=== PATIENT | female | born 1990 | race Two or more races ===

== ENCOUNTER → 2020-10-04 15:05 | Outpatient (BNVA) | payer OTHER, SELFPAY | PROVIDERS: PCP Internal Medicine; Visit Provider Obstetrics & Gynecology ==

== ENCOUNTER 2020-10-07 08:24 | Emergency (ER) | payer OTHER, SELFPAY ==
--- NOTE | ~2020-10-07 | XR_ITS ---
EXAMINATION: XR CHEST CLINICAL INFORMATION: Cough COMPARISON: Previous chest x-ray November 2018 TECHNIQUE: Frontal view of the chest was obtained. FINDINGS: The cardiac and mediastinal contours are normal. There is minimal subsegmental atelectasis at the left lung base. The lungs are otherwise clear. There is no pleural effusion or pneumothorax. Bony structures are normal. XR/XR chest 1V IMPRESSION: Subsegmental atelectasis at the left lung base. Otherwise unremarkable exam.
[2020-10-07 08:36] VITALS: BP 189/107; PULSE 106; RESP 18; TEMP 37.7; O2SAT 95; BMI 53.9
[2020-10-07 10:48] LABS: IDNOW Serial# 9DD0AD1C
[2020-10-07 10:49] LABS: COVID-19 Test Positive (Negative)
--- NOTE | 2020-10-07 12:16 | ED.URI ---
HPI - URI/Sore Throat General Chief Complaint: Upper Respiratory Symptoms Stated Complaint: asthma Time Seen by Provider: 10/07/20 09:34 Source: patient Mode of arrival: ambulatory Limitations: no limitations History of Present Illness HPI Narrative: 30-year-old female came in for symptoms of upper respiratory symptoms, been coughing, wheezing with difficulty breathing, patient with history of asthma, patient been having generalized body ache, intermittent subjective fever and chills. Patient had 1st shot of modern COVID vaccine about week ago. Related Data Previous Rx's Medication Instructions Recorded escitalopram oxalate 10 mg tablet 10 mg PO DAILY 90 Days #90 tab 09/18/20 albuterol sulfate [ProAir HFA] 2 puff INHALATION Q6H PRN #8.5 g 10/07/20 azithromycin [Zithromax] 250 mg PO DAILY 5 Days #5 tab 10/07/20 Allergies Allergy/AdvReac Type Severity Reaction Status Date / Time citalopram Allergy Unknown nausea Verified 10/04/20 15:06 ibuprofen [From MOTRIN] Allergy Unknown VOMITING Unverified 10/04/20 15:06 Motrin Allergy Unknown vomiting Unverified 10/04/20 15:06 Review of Systems Review of Systems: All other systems are reviewed and are negative Constitutional: Reports as per HPI and Reports no additional constitutional complaints Eyes: Reports as per HPI and Reports no additional eye complaints Reports system reviewed and no additional complaints, except as documented Cardiovascular: Reports as per HPI and Reports no additional cardiovascular complaints Respiratory: Reports as per HPI and Reports no additional respiratory complaints Gastrointestinal: Reports as per HPI and Reports no additional gastrointestinal complaints Genitourinary: Reports no additional female genitourinary complaints Musculoskeletal: Reports no additional musculoskeletal complaints Skin/Breast: Reports system reviewed and no additional complaints, except as docu Psychiatric: Reports no additional psychiatric complaints Endocrine: Reports no additional endocrine complaints Hematologic/Lymphatic: Reports no additional hematologic/lymphatic complaints Allergic/Immunologic: Reports no additional allergic/immunologic complaints Reports system reviewed and no additional complaints, except as documented and Reports Abnormal speech present [facility] Past Medical History Medical History Asthma History of hysteroscopy PCOS (polycystic ovarian syndrome) Surgical History Corneal transplant status History of appendectomy Social History Social History Alcohol intake: never Smoking Status: Never smoker Advance Directives: No Advance Directives Information Provided: No Gender identity: female Physical Exam Vital Signs: Vital Signs: Last Vital Signs Temp 99.8 F 10/07/20 08:36 Pulse 106 H 10/07/20 08:36 Resp 18 10/07/20 08:36 BP 189/107 H 10/07/20 08:36 Pulse Ox 95 10/07/20 08:36 Body Mass Index 53.9 Vital signs have been reviewed as appeared to be correct. Blood pressure elevated. Heart rate elevated. Respiration rate normal. Temperature normal. Oxygen saturation normal. Appearance: Alert. Oriented X3. No acute distress. Head: Normal external exam. Normocephalic. Atraumatic. No Gonzalez signs noted. No raccoon eyes noted Eyes: PERRLA. EOMI. Conjunctiva and sclera normal. Eyelids normal. ENT: TM's Normal. Pharynx normal. Uvula midline. Moist mucous membranes. No trismus noted. No drooling noted. No muffled voice noted. Neck: Normal inspection. Neck supple. FROM. No adenopathy. Thyroid Normal. No meningeal signs. No neck mass noted. CVS: Normal heart rate and rhythm. Heart sound normal. No murmurs noted. Pulses normal throughout. Respiratory: No respiratory distress. Painless inspiration. Breath sounds normal. No wheezes/rales/rhonchi noted. Chest nontender. No accessory muscle usage noted or decreased air movement noted. Abdomen: Soft and nontender. Bowel sounds normal in all 4 quadrants. No distention noted. No organomegaly noted. No visible injury noted. Back: No CVA tenderness. Full range of motion noted. Skin: Skin warm and dry. Normal skin color. Normal skin turgor. No rashes/lesions/lacerations noted. Extremities: No lower extremity edema. Extremities exhibit normal range of motion. Extremities nontender. Neuro: Oriented X 3. No motor deficit. No sensory deficit. Reflexes normal. Course Course Course Narrative: Assessment and plan. Asthmatic came in with COVID positive positive symptoms, patient is not hypoxic, chest x-ray is not showing pneumonia, will discharge the patient with a course of Z-Saw /albuterol, will hold on prednisone for now. MDM - URI/Sore Throat Lab Data Attestation: I reviewed the patient's lab results. Labs: Lab Results 10/07/20 Range/Units 10:20 COVID-19 (KAREN) Positive A (Negative) COVID-19 Clin Com See Note Imaging Data Chest x-ray: Radiologist's impression: Subsegmental atelectasis at the left lung base. Otherwise unremarkable exam. Discharge Plan Discharge Clinical Impression: Pneumonia due to COVID-19 virus, Bronchitis Patient Disposition: Home, Self-Care Instructions: COVID-19 (Coronavirus Disease 2019) (ED) Prescriptions: New azithromycin [Zithromax] 250 mg tablet 250 mg PO DAILY 5 Days Qty: 5 RF: 0 albuterol sulfate [ProAir HFA] 90 mcg/actuation HFA aerosol inhaler 2 puff inhalation Q6H PRN (Reason: shortness of breath or wheezing) Qty: 8.5 RF: 0 No Action escitalopram oxalate 10 mg tablet 10 mg PO DAILY 90 Days Qty: 90 RF: 1 Referrals: Lucille Marrufo MD [Primary Care Provider] - 2 days
[2020-10-07 12:29] VITALS: BP 145/76; PULSE 104; RESP 20; TEMP 36.8; O2SAT 97
== END 2020-10-07 12:54 | disposition home or self-care (01) ==
PROVIDERS: Emergency Provider Emergency Medicine; PCP Internal Medicine
DX: U07.1 COVID-19 (principal); J12.82 Pneumonia due to coronavirus disease 2019; J40 Bronchitis, not specified as acute or chronic
CPT/HCPCS: 36415; 71045; 87635; 99283

== ENCOUNTER 2020-10-15 15:16 | Outpatient (REF) | payer OTHER, SELFPAY ==
[2020-10-16 01:35] LABS: CT PCR NOT DETECTED (Not Detect.); NG PCR NOT DETECTED (Not Detect.)
== END 2020-10-15 15:17 | disposition home or self-care (01) ==
LOC: HO.LAB 15:16
PROVIDERS: PCP Internal Medicine; Visit Provider Obstetrics & Gynecology
DX: Z30.432 Encounter for removal of intrauterine contraceptive device (principal); R10.2 Pelvic and perineal pain; E28.2 Polycystic ovarian syndrome; Z88.8 Allergy status to other drugs, medicaments and biological substances
CPT/HCPCS: 58301; 81003; 81025; 87491; 87591; 99212

== ENCOUNTER 2020-10-23 14:42 | Outpatient (REF) | payer OTHER, SELFPAY ==
--- NOTE | ~2020-10-23 | US_ITS ---
EXAMINATION: US PELVIS COMPLETE CLINICAL INFORMATION: Pelvic and perineal pain. COMPARISON: Ultrasound pelvis 03/31/2019. TECHNIQUE: Transabdominal and transvaginal imaging of pelvis is performed. FINDINGS: The uterus is anteverted and heterogenous measuring 8.9 cm in length, 3.1 cm in AP and 3.3 cm in transverse dimension. The endometrial thickness is 0.8 cm. No focal lesion seen. Both ovaries are enlarged. The right ovary measures 8.5 x 6.3 x 7.0 cm and volume 1 96 mL. There is a cyst which measures 6.8 x 5.9 x 6.8 cm. Several small anechoic cysts are seen in addition. The findings are suggestive of polycystic disease Previously right ovary measured 4.3 x 3.4 x 3.3 cm and volume 25.3 mL. The left ovary measures 5.1 x 2.8 x 3.5 cm and volume 26.2 mL. There are small anechoic cysts in the string of pearls formation. Findings are suggestive of polycystic disease. There is no free fluid in the cul-de-sac. US/US transvaginal IMPRESSION: Bilateral enlarged ovaries. Multiple cysts likely from polycystic ovarian syndrome. The largest cyst in the right ovary measures 6.8 x 5.9 x 6.8 cm. Slightly heterogenous uterus but otherwise unremarkable.
--- NOTE | ~2020-10-23 | US_ITS ---
EXAMINATION: US PELVIS COMPLETE CLINICAL INFORMATION: Pelvic and perineal pain. COMPARISON: Ultrasound pelvis 03/31/2019. TECHNIQUE: Transabdominal and transvaginal imaging of pelvis is performed. FINDINGS: The uterus is anteverted and heterogenous measuring 8.9 cm in length, 3.1 cm in AP and 3.3 cm in transverse dimension. The endometrial thickness is 0.8 cm. No focal lesion seen. Both ovaries are enlarged. The right ovary measures 8.5 x 6.3 x 7.0 cm and volume 1 96 mL. There is a cyst which measures 6.8 x 5.9 x 6.8 cm. Several small anechoic cysts are seen in addition. The findings are suggestive of polycystic disease Previously right ovary measured 4.3 x 3.4 x 3.3 cm and volume 25.3 mL. The left ovary measures 5.1 x 2.8 x 3.5 cm and volume 26.2 mL. There are small anechoic cysts in the string of pearls formation. Findings are suggestive of polycystic disease. There is no free fluid in the cul-de-sac. US/US pelvic complete IMPRESSION: Bilateral enlarged ovaries. Multiple cysts likely from polycystic ovarian syndrome. The largest cyst in the right ovary measures 6.8 x 5.9 x 6.8 cm. Slightly heterogenous uterus but otherwise unremarkable.
== END 2020-10-23 14:43 | disposition home or self-care (01) ==
LOC: HO.US 14:42
PROVIDERS: Visit Provider Obstetrics & Gynecology
DX: R10.2 Pelvic and perineal pain (principal)
CPT/HCPCS: 76830; 76856

== ENCOUNTER → 2020-11-02 11:26 | Outpatient (BNVA) | payer OTHER, SELFPAY | PROVIDERS: PCP Internal Medicine; Visit Provider Obstetrics & Gynecology ==

== ENCOUNTER → 2021-11-07 15:26 | Outpatient (BNVA) | payer OTHER, SELFPAY | PROVIDERS: PCP Internal Medicine; Visit Provider Obstetrics & Gynecology | DX: N91.5 Oligomenorrhea, unspecified (principal) | CPT/HCPCS: 99212 ==

== ENCOUNTER 2021-12-06 09:31 | Outpatient (REF) | payer OTHER, SELFPAY ==
[2021-12-06 09:53] LABS: MANUAL DIFF FLAG NO
[2021-12-06 10:08] LABS: Basophils Percent Auto 0.4 % (0-2); Eosinophils Absolute Auto 0.9 X10*3/uL (0.0-0.4); Eosinophils Percent Auto 10.4 % (0-4); Hematocrit 47.1 % (37.0-47.0); Imm Gran Abs Auto 0.02 X10*3/uL (0.00-0.03); Imm Gran Pct Auto 0.2 % (0.0-0.4); Lymphocytes Absolute Auto 3.3 X10*3/uL (1.2-4.9); Lymphocytes Percent Auto 36.5 % (20-40); Mean Corpuscular Hemoglobin 30.1 pg (27.0-33.0); Mean Corpuscular Volume 88.5 fL (80.0-98.0); Mean Platelet Volume 10.2 fL (9.4-12.3); Monocytes Absolute Auto 0.7 X10*3/uL (0.1-1.2); Monocytes Percent Auto 7.3 % (2-11); Neutrophils Absolute Auto 4.1 x10*3/uL (2.0-8.3); Neutrophils Percent Auto 45.2 % (45-73); Platelet Count 267 X10*3/uL (160-400); Red Blood Count 5.32 X10*6/uL (4.20-5.50); Red Cell Distribution Width 12.8 % (11.0-16.0)
[2021-12-06 10:56] LABS: Alanine Aminotransferase 44 U/L (0-31); Albumin Level 3.8 g/dL (3.5-5.0); Alkaline Phosphatase 69 U/L (39-117); Anion Gap 12 (12-20); Aspartate Amino Transferase 31 U/L (5-31); Bilirubin Total 0.6 mg/dL (0.0-1.0); Blood Urea Nitrogen 8 mg/dL (9-16); Calcium 8.9 mg/dL (8.4-10.2); Carbon Dioxide 24 mmol/L (22-29); Chloride 106 mmol/L (96-108); Cholesterol 124 mg/dL; Estimated Glomerular Filt Rate > 60; Glucose Fasting 110 mg/dL (60-99); HDL Cholesterol 23 mg/dL; LDL Cholesterol Calculated 79 mg/dl; Potassium 3.9 mmol/L (3.3-5.1); Sodium 138 mmol/L (135-145); Total Protein 7.1 g/dL (6.5-8.0); Triglycerides 110 mg/dL
[2021-12-06 11:07] LABS: TSH reflex Free T4 1.92 uIU/mL (0.32-4.0)
== END 2021-12-06 09:32 | disposition home or self-care (01) ==
LOC: HO.LAB 09:31
PROVIDERS: PCP Internal Medicine; Visit Provider Nurse Practitioner Family
DX: E78.00 Pure hypercholesterolemia, unspecified (principal); E66.9 Obesity, unspecified; I10 Essential (primary) hypertension
CPT/HCPCS: 36415; 80053; 80061; 84443; 85025

== ENCOUNTER 2023-01-14 13:46 | Outpatient (AMB) | payer OTHER, SELFPAY ==
[2023-01-14 13:47] VITALS: BP 136/88; PULSE 107; O2SAT 97; BMI 57.4
--- NOTE | 2023-01-14 13:47 | A.OFFPC_ITS ---
Vital Signs 01/14/23 13:47 Height 5 ft 5 in Weight 345 lb BMI 57.4 BP 136/88 Blood Pressure Location Lt brachial Position Sitting Pulse 107 H Pulse Source Pulse Oximeter Temp Source Skin Pulse Oximetry (%) 97 Oxygen Delivery Method Room Air Intake Visit Reasons: Physical exam Intake Note: Patient is here today for a physical. 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 Allergies citalopram Allergy (Intermediate, Verified 01/14/23 13:59) nausea ibuprofen [From MOTRIN] Allergy (Intermediate, Verified 01/14/23 13:59) VOMITING Medication List - Last Reconciled 01/14/23 by BRONSON Brenner fluticasone propionate 44 mcg/actuation (Flovent HFA) 1 puff inhalation BID 30 days medroxyprogesterone (Provera) 10 mg PO DAILY 10 days nebulizers (AeroEclipse II Nebulizer) As directed ProAir HFA 90 mcg/actuation (albuterol sulfate) 2 puffs inhalation Q6H PRN 30 days NS Tobacco use date assessed: 01/14/23 Dental Screening Dental Screen Date: 01/14/23 Did you have a dental visit in the last 12 months?: No Did you have a dental problem in the last 6 months where you did not have access to dental care?: No Was dental information given to patient?: Patient has dentist HPI Physical exam HPI Details Patient is a 33-year-old female presents today for physical exam. Patient of Dr. Albert. Medical history significant for obesity, asthma, impaired fasting glucose, PCOS, hypertension. Patient reports normal Pap smear 2 years ago, she has an upcoming appointment for annual exam with Dr. Jaimes on 02/2023. Asthma is stable with current inhalers, last time she used albuterol inhaler 2 months ago. She reports eye exam today. Patient reports she never took lisinopril for blood pressure, patient reports taking [id number] supplements for blood pressure for the past 2 weeks-she does not remember the name. Denies chest pain or shortness of breath. Reports intermittent headache with sensitivity to light reports feeling better in a dark room, reports Excedrin helps, reports when she had headache her blood pressure was normal. Interested in weight management referral, although not interested in a surgery. [facility] Medical History (Updated 01/14/23 @ 14:16 by BRONSON Brenner) Asthma Keratoconus of both eyes Obese PCOS (polycystic ovarian syndrome) Pneumonia due to COVID-19 virus Surgical History Corneal transplant status History of appendectomy History of hysteroscopy Hx laparoscopic cholecystectomy Family History Mother Hypertension Father Hypertension Social History Housing: Apartment Alcohol intake: never Patient Tobacco Use Status: Current someday Tobacco user Tobacco use type: Cigarette Cigarettes Per Day: 3 e-Cigarette/Vaping Use: Never Used Second Hand Smoke Exposure: No service: No Current occupational status: unemployed Gender identity: Female Cognitive needs: No Hearing needs: No Vision needs: Yes Female Reproductive History Menstrual Age of Menarche: 8 Questionnaire PHQ-9 Over the last 2 weeks, how often have you been bothered by any of the following problems? 1. Little interest or pleasure in doing things: not at all 2. Feeling down, depressed, or hopeless: not at all 3. Trouble falling or staying asleep, or sleeping too much: not at all 4. Feeling tired or having little energy: not at all 5. Poor appetite or overeating: not at all 6. Feeling bad about yourself - or that you are a failure or have let yourself or your family down: not at all 7. Trouble concentrating on things, such as reading the newspaper or watching television: not at all 8. Moving or speaking so slowly that other people could have noticed. Or the opposite - being so fidgety or restless that you have been moving around a lot more than usual: not at all 9. Thoughts that you would be better off or of hurting yourself in some way: not at all Total score: 0 Depression Screening Interpretation: Negative 46615 - PHQ-9 Billing: Yes Source: Developed by Drs. Carlos Murillo, Karime Covington, Sergio Rosales and colleagues, with an educational joao from [employer]. Thrive Questionnaire Date Thrive assessed: 01/14/23 I am a: Patient What is your living situation today?: I have a steady place to live Within the past 12 months, did the food you bought not last and you didn't have the money to get more?: Never true Within the past 12 months, did you worry whether your food would run out before you got money to buy more?: Never true Do you have trouble paying for medicines?: No Do you have trouble getting transportation to medical appointments?: No Do you have trouble paying your heating and electricity bill?: No Do you have trouble taking care of your child, family member or friend?: No Do you have trouble with day-to-day activities such as bathing, preparing meals, shopping, managing finances, etc.?: No Are you currently unemployed and looking for a job?: No Are you interested in more education?: No Currently or been in a relationship where the following occur: no concerns reported AUDIT C Alcohol Use Questionnaire (AUDIT-C) 1. How often do you have a drink containing alcohol?: Never Total Score: 0 Score Reviewed/Action Taken: No THAO-7 AMB Questionnaire THAO-7 Date THAO - 7 assessed: 01/14/23 Feeling nervous, anxious, or on edge: 0 = Not at all Not being able to stop or control worryin = Not at all Worrying too much about different things: 0 = Not at all Trouble relaxin = Not at all Being so restless that it is hard to sit still: 0 = Not at all Becoming easily annoyed or irritable: 0 = Not at all Feeling afraid as if something awful might happen: 0 = Not at all Total THAO-7 score (0-4 normal; 5-9 mild; 10-14 moderate; 15-21 severe): 0 Source: Developed by Drs. Carlos Murillo, Karime Covington, Sergio Rosales and colleagues, with an educational joao from [employer]. THAO-7 Assessment Billing THAO-7 Assessment Tool: THAO-7 Assessment 08612 Review of Systems Const Denies body aches, Denies chills, Denies fever(s) and Reports headache(s) (Intermittent) Eyes Denies change in vision ENT Denies dizziness, Denies otalgia, Reports headache(s) (Intermittent), Denies nasal discharge, Denies sinus pain and Denies sore throat Card Denies chest pain, Denies edema, Denies lightheadedness and Denies dyspnea Resp Denies cough, Denies dyspnea and Denies wheezing GI Denies abdominal pain, Denies constipation, Denies diarrhea, Denies nausea and Denies vomiting Denies dysuria Musc Denies myalgias Skin/Breast Denies rash Neuro Denies dizziness and Reports headache(s) (Intermittent) Aller/Immun Denies wheezing Physical exam (Primary Care) Vital Signs: Last Vital Signs Pulse 107 H 01/14/23 13:47 BP 136/88 01/14/23 13:47 Pulse Ox 97 01/14/23 13:47 Oxygen Delivery Method Room Air 01/14/23 13:47 BMI result Body Mass Index 57.4 Tobacco/Smoking Status: Tobacco use Status Tobacco use date assessed 01/14/23 01/14/23 13:48 Patient Tobacco Use Status Current someday Tobacco 01/14/23 13:48 Tobacco use type Cigarette 01/14/23 13:48 e-Cigarette/Vaping Use Never Used 01/14/23 13:48 PHQ-9: PHQ-9 Score PHQ-9: Total score 0 01/14/23 13:48 Depression Screening Interpretation: Negative Thrive Assessment: Date of Thrive Assessment Date Thrive assessed 01/14/23 01/14/23 13:48 Currently or been in a relationship where the following occur: no concerns reported Const General: cooperative and no acute distress Orientation/consciousness: patient oriented x3 HENMT Head: Yes normocephalic and Yes atraumatic Ears: TM's normal bilaterally Face and sinus: Yes sinuses nontender Mouth: oropharynx normal and moist mucous membranes Throat: Yes posterior oropharynx normal Eyes General: appearance normal, both eyes and all related structures Pupils: Equal, round and reactive pupils present EOM: EOMs intact bilaterally Neck Neck: Yes normal visual inspection, Yes full ROM and Yes no lymphadenopathy Thyroid: Thyroid normal Resp Effort & Inspection: normal respiratory effort and able to speak in complete sentences Auscultation: clear to auscultation bilaterally, no crackles, no rales, no rhonchi and no wheezes Cardio Rate: regular rate Rhythm: regular rhythm Heart sounds: S1 normal heart sound present, S2 normal heart sound present and no murmurs GI Palpation (GI): Soft to palpation, not firm, nontender, no guarding, not rigid and no hepatosplenomegaly Auscultation: normal bowel sounds General: No CVA tenderness Back/Spine/Pelvis Back: No CVA tenderness Skin General skin exam: no rashes or lesions noted Neuro General: patient oriented x3 Cranial nerves: Yes Equal, round and reactive pupils present Gait exam (Neuro): Normal gait present Extrem General: Yes full ROM and No edema Assessment and Plan Assessment & Plan (1) Essential hypertension: Code(s): I10 - Essential (primary) hypertension Plan: Goal BP equal or less than 140/90, blood pressure today 136/88 Patient was encouraged to monitor her blood pressures periodically at home, currently not on treatment reports that she started taking [id number] blood pressure supplement-does not remember the name Low-sodium diet and weight loss (2) Impaired fasting glucose: Code(s): R73.01 - Impaired fasting glucose Plan: Will check fasting glucose (3) BMI 50.0-59.9, adult: Code(s): Z68.43 - Body mass index [BMI] 50.0-59.9, adult Plan: Healthy food choices and exercise as tolerated Weight management referral (4) Asthma: Code(s): J45.909 - Unspecified asthma, uncomplicated Plan: Stable Continue current treatment (5) Encounter for physical examination: Comment: Patient follows up with Dr. Jaimes Code(s): Z00.00 - Encounter for general adult medical examination without abnormal findings Plan: Repeat in 1 year Plan Follow-up with PCP in 6 months or sooner as needed Orders: Orders Vitamin B12 and Folate Today J45.909 - Unspecified asthma, uncomplicated Comprehensive [place]. Panel Fast Today J45.909 - Unspecified asthma, uncomplicated Lipid Panel Today J45.909 - Unspecified asthma, uncomplicated TSH reflex Free T4 Today J45.909 - Unspecified asthma, uncomplicated Vitamin D 25-OH Total Today J45.909 - Unspecified asthma, uncomplicated Complete Blood Count Auto Diff Today J45.909 - Unspecified asthma, uncomplicated Referrals Medical Weight Management Referral Z68.43 - Body mass index [BMI] 50.0-59.9, adult Medications: Refilled fluticasone propionate 44 mcg/actuation (Flovent HFA) administer with spacer 1 puff inhalation BID 30 days 10.6 grams 1RF J45.909 - Unspecified asthma, uncomplicated ProAir HFA 90 mcg/actuation (albuterol sulfate) 2 puffs inhalation Q6H 30 days PRN 8.5 grams 3RF shortness of breath or wheezing NS J45.909 - Unspecified asthma, uncomplicated Coding Level of Care Code Est Pt Prev Care [id number]) Diagnoses Essential hypertension I10 Impaired fasting glucose R73.01 BMI 50.0-59.9, adult Z68.43 Asthma J45.909 Encounter for physical examination Z00.00 Additional Codes THAO-7 Assessment Billing - THAO-7 Assessment Tool: THAO-7 Assessment 61101 ([id number])
== END 2023-01-14 14:10 | disposition home or self-care (01) ==
PROVIDERS: PCP Internal Medicine; Visit Provider Nurse Practitioner Family
DX: Z00.00 Encounter for general adult medical examination without abnormal findings (principal); Z68.43 Body mass index [BMI] 50.0-59.9, adult; E66.01 Morbid (severe) obesity due to excess calories; I10 Essential (primary) hypertension; J45.909 Unspecified asthma, uncomplicated; R73.01 Impaired fasting glucose
CPT/HCPCS: 99395

== ENCOUNTER 2023-01-20 10:15 | Outpatient (REF) | payer OTHER, SELFPAY ==
[2023-01-20 10:32] LABS: MANUAL DIFF FLAG NO
[2023-01-20 10:52] LABS: Basophils Absolute Auto 0.1 X10*3/uL (0.0-0.2); Basophils Percent Auto 0.6 % (0-2); Eosinophils Absolute Auto 0.6 X10*3/uL (0.0-0.4); Eosinophils Percent Auto 6.9 % (0-4); Hematocrit 40.7 % (37.0-47.0); Hemoglobin 13.6 g/dl (12.0-16.0); Imm Gran Abs Auto 0.01 X10*3/uL (0.00-0.03); Imm Gran Pct Auto 0.1 % (0.0-0.4); Lymphocytes Absolute Auto 4.2 X10*3/uL (1.2-4.9); Lymphocytes Percent Auto 46.5 % (20-40); Mean Corpuscular HGB Conc 33.4 g/dl (31.0-35.0); Mean Corpuscular Hemoglobin 28.9 pg (27.0-33.0); Mean Corpuscular Volume 86.6 fL (80.0-98.0); Mean Platelet Volume 10.6 fL (9.4-12.3); Monocytes Absolute Auto 0.6 X10*3/uL (0.1-1.2); Monocytes Percent Auto 6.7 % (2-11); Neutrophils Absolute Auto 3.5 x10*3/uL (2.0-8.3); Neutrophils Percent Auto 39.2 % (45-73); Platelet Count 335 X10*3/uL (160-400); Red Cell Distribution Width 13.9 % (11.0-16.0); White Blood Count 8.9 X10*3/uL (4.8-10.8)
[2023-01-20 11:21] LABS: Alanine Aminotransferase 52 U/L (0-31); Albumin Level 3.8 g/dL (3.5-5.0); Alkaline Phosphatase 75 U/L (39-117); Anion Gap 10 (12-20); Aspartate Amino Transferase 41 U/L (5-31); Bilirubin Total 0.5 mg/dL (0.0-1.0); Blood Urea Nitrogen 12 mg/dL (9-16); Calcium 9.2 mg/dL (8.4-10.2); Carbon Dioxide 28 mmol/L (22-29); Chloride 107 mmol/L (96-108); Cholesterol 129 mg/dL; Estimated Glomerular Filt Rate > 60; Glucose Fasting 102 mg/dL (60-99); HDL Cholesterol 25 mg/dL; LDL Cholesterol Calculated 81 mg/dl; Potassium 3.5 mmol/L (3.3-5.1); Sodium 141 mmol/L (135-145); Total Protein 7.5 g/dL (6.5-8.0); Triglycerides 115 mg/dL
[2023-01-20 11:38] LABS: TSH reflex Free T4 4.57 uIU/mL (0.32-4.0)
[2023-01-20 11:52] LABS: Folate 13.7 ng/mL (> or = 4.0); Vitamin B12 350 pg/mL (200-900)
[2023-01-20 13:09] LABS: Free T4 (Free Thyroxine) 1.15 ng/dL (0.71-1.85)
== END 2023-01-20 10:16 | disposition home or self-care (01) ==
LOC: HO.LAB 10:15
PROVIDERS: PCP Internal Medicine; Visit Provider Nurse Practitioner Family
DX: J45.909 Unspecified asthma, uncomplicated (principal)
CPT/HCPCS: 36415; 80053; 80061; 82306; 82607; 82746; 84439; 84443; 85025

== ENCOUNTER 2023-02-17 10:58 | Outpatient (AMB) | payer OTHER, SELFPAY ==
--- NOTE | 2023-02-17 11:01 | MHC.OFFVIS ---
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 Complaining of LLQ pain started 1-2 months ago. It's intermittent in nature lasting few seconds and occurs 3x/day. it is not associated with any constipation, dysuria, no frequency or incontinence, no n/v, no feverishness Last co testing was negative in 03/25 [facility] Medical History Obese Keratoconus of both eyes Pneumonia due to COVID-19 virus Asthma PCOS (polycystic ovarian syndrome) Surgical History Hx laparoscopic cholecystectomy History of hysteroscopy History of appendectomy Corneal transplant status Family History Mother Hypertension Father Hypertension Social History Housing: Apartment Alcohol intake: never Patient Tobacco Use Status: Current someday Tobacco user Tobacco use type: Cigarette Cigarettes Per Day: 3 e-Cigarette/Vaping Use: Never Used Second Hand Smoke Exposure: No service: No Current occupational status: unemployed Gender identity: Female Cognitive needs: No Hearing needs: No Vision needs: Yes Female Reproductive History Menstrual Age of Menarche: 8 Duration of menses: 3-5 days Date of last menstrual period: 12/22/22 control method: none Total pregnancies: 0 Date of last pap smear: 03/18/18 (negative) Review of Systems Const All systems reviewed & are unremarkable except as noted in HPI and below Card Reports as per HPI Resp Reports as per HPI GI Reports as per HPI and Reports no additional complaints Reports as per HPI Physical Exam Vital Signs: Last Vital Signs BP 150/94 H 02/17/23 11:02 BMI result Body Mass Index 56.4 Const General: cooperative, healthy appearing and comfortable Chest Chest palpation & inspection: normal inspection of the chest and normal palpation of entire chest wall Breast/axilla inspection: normal inspection of the breasts and normal inspection of the axillae Breast/axilla palpation: normal palpation of the breasts, normal palpation of the axillae and no axillary lymphadenopathy Resp Effort & Inspection: normal respiratory effort Auscultation: clear to auscultation bilaterally Percussion: percussion normal Cardio Palpation: normal PMI Rate: regular rate Rhythm: regular rhythm Heart sounds: no murmurs and no rubs Peripheral pulses: Peripheral pulses 2+ throughout GI Inspection: Yes normal to inspection Palpation (GI): Soft to palpation, nontender, no guarding, not rigid and No hepatosplenomegaly present Percussion: Yes normal to percussion Auscultation: normal bowel sounds Rectal Exam - Female: deferred General: Yes bladder normal to palpation External Female Exam: No lesion Speculum Exam - Vagina: normal appearance of the vagina, normal palpation, normal vaginal discharge and not erythematous Speculum Exam - Cervix: normal appearance of the cervix and normal palpation Bimanual exam- vagina & uterus: normal bimanual exam, normal palpation, uterine size normal, bladder normal to palpation, consistency normal and normal palpation Bimanual Exam- Adnexa, other: normal adnexae, no masses and no tenderness Assessment & Plan Assessment & Plan (1) Well woman exam: Code(s): Z01.419 - Encounter for gynecological examination (general) (routine) without abnormal findings Plan: Cotesting done. Counseled the patient about the recommended dietary allowance of 1000 mg of Calcium & 600 IU of vitamin D. The patient was instructed to perform monthly self-breast exams and to schedule an annual exam in a year; All questions answered and the patient verbalized understanding. Instructed the patient to schedule annual exam in a year (2) Pelvic pain: Code(s): R10.2 - Pelvic and perineal pain Plan: Urine dip and test done in the office were both negative. GC and chlamydia taken and pelvic ultrasound ordered. Discussed with the patient the differential diagnosis of pelvic pain including but not limited to adnexal, uterine masses, pelvic infections (PID), GI the (Irritable bowel syndrome, diverticulitis, others), musculoskeletal, myofascial pain abdominal wall , adhesions, endometriosis, psychological and others causes. Will check results and treat accordingly. All questions answered, the patient verbalized understanding. Instructed the patient to schedule follow-up appointment in 2 weeks Orders: Orders US pelvic and transvaginal Today R10.2 - Pelvic and perineal pain Pap Smear Today Z01.419 - Encounter for gynecological examination (general) (routine) without abnormal findings CT NG by PCR Today Z01.419 - Encounter for gynecological examination (general) (routine) without abnormal findings Coding Level of Care Code New Pt Prev Care 18-39yr([id number] Diagnoses Well woman exam Z01.419 Pelvic pain R10.2
[2023-02-17 11:02] VITALS: BP 150/94; BMI 56.4
== END 2023-02-17 11:52 | disposition home or self-care (01) ==
PROVIDERS: PCP Internal Medicine; Visit Provider Obstetrics & Gynecology
DX: Z01.419 Encounter for gynecological examination (general) (routine) without abnormal findings (principal); R10.2 Pelvic and perineal pain; Z32.02 Encounter for pregnancy test, result negative
CPT/HCPCS: 99385; 99395

== ENCOUNTER 2023-02-17 10:58 | Outpatient (REF) | payer OTHER, SELFPAY ==
[2023-02-18 07:13] LABS: CT PCR NOT DETECTED (Not Detect.); NG PCR NOT DETECTED (Not Detect.)
[2023-02-21 03:34] LABS: HPV mRNA E6/E7 rflx Not Detected (Not Detected)
== END 2023-02-17 10:59 | disposition home or self-care (01) ==
LOC: HO.LNP 10:58
PROVIDERS: PCP Internal Medicine; Visit Provider Obstetrics & Gynecology
DX: Z01.419 Encounter for gynecological examination (general) (routine) without abnormal findings (principal); R10.2 Pelvic and perineal pain
CPT/HCPCS: 0353U; 81025; 87624; 88142

== ENCOUNTER 2023-02-27 14:55 | Outpatient (REF) | payer OTHER, SELFPAY ==
--- NOTE | ~2023-02-27 | US_ITS ---
EXAMINATION: ULTRASOUND PELVIC, COMPLETE CLINICAL INFORMATION: Pelvic and perineal pain. COMPARISON: Pelvic ultrasound 10/23/2020. TECHNIQUE: Pelvic ultrasound was performed using transvaginal and transabdominal technique without spectral doppler. FINDINGS: The uterus is of normal size and echogenicity measuring 9.6 x 2.8 x 3.6 cm. The uterus appears normal. A regular homogeneous endometrium is identified measuring 0.5 cm in thickness. The right ovary measures 5.0 x 4.1 x 5.1 cm, volume 55 mL. Right ovary is only visible transabdominally. Cannot assess follicle count. The left ovary measures 6.2 x 3.1 x 3.6 cm, volume 36 mL. Estimated 12-14 antral follicles. There is no pelvic free fluid. US/US pelvic and transvaginal IMPRESSION: Enlarged ovaries with increased number of antral follicles in the left ovary. This is consistent with polycystic ovarian morphology. Correlate clinically.
== END 2023-02-27 14:56 | disposition home or self-care (01) ==
LOC: HO.US 14:55
PROVIDERS: PCP Internal Medicine; Visit Provider Obstetrics & Gynecology
DX: R10.2 Pelvic and perineal pain (principal)
CPT/HCPCS: 76830; 76856

== ENCOUNTER 2023-04-22 09:09 | Outpatient (REF) | payer OTHER, SELFPAY ==
[2023-04-22 15:28] LABS: Thyroid Stimulating Hormone 1.19 uIU/mL (0.32-4.0)
[2023-04-22 15:30] LABS: TSH reflex Free T4 1.34 uIU/mL (0.32-4.0); Vitamin D 25-OH Total 32.4 ng/mL (>30)
[2023-04-24 18:48] LABS: Prolactin 6.1 ng/mL
[2023-04-28 11:49] LABS: Testosterone, Free 40.3 pg/mL (0.1-6.4); Testosterone, Total 288 ng/dL (2-45)
== END 2023-04-22 09:10 | disposition home or self-care (01) ==
LOC: HO.LAB 09:09
PROVIDERS: Nurse Practitioner Family; PCP Internal Medicine; Visit Provider Obstetrics & Gynecology
DX: L68.0 Hirsutism (principal); N92.6 Irregular menstruation, unspecified; R10.2 Pelvic and perineal pain; E28.2 Polycystic ovarian syndrome; R79.89 Other specified abnormal findings of blood chemistry
CPT/HCPCS: 36415; 82306; 83498; 84146; 84402; 84403; 84443

== ENCOUNTER 2023-04-22 09:09 | Outpatient (AMB) | payer OTHER, SELFPAY ==
--- NOTE | 2023-04-22 09:09 | MHC.OFFVIS ---
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 Ultrasound showed the following: The uterus is of normal size and echogenicity measuring 9.6 x 2.8 x 3.6 cm. The uterus appears normal. A regular homogeneous endometrium is identified measuring 0.5 cm in thickness. The right ovary measures 5.0 x 4.1 x 5.1 cm, volume 55 mL. Right ovary is only visible transabdominally. Cannot assess follicle count. The left ovary measures 6.2 x 3.1 x 3.6 cm, volume 36 mL. Estimated 12-14 antral follicles. There is no pelvic free fluid. The Patient was seen few years ago for oligomenorrhea and was started on cyclic Provera day 15-24 . The patient is complaining of hair growth PFSH Medical History Obese Keratoconus of both eyes Pneumonia due to COVID-19 virus Asthma PCOS (polycystic ovarian syndrome) Surgical History Hx laparoscopic cholecystectomy History of hysteroscopy History of appendectomy Corneal transplant status Family History Mother Hypertension Father Hypertension Social History Housing: Apartment Alcohol intake: never Patient Tobacco Use Status: Current someday Tobacco user Tobacco use type: Cigarette Cigarettes Per Day: 3 e-Cigarette/Vaping Use: Never Used Second Hand Smoke Exposure: No service: No Current occupational status: unemployed Gender identity: Female Cognitive needs: No Hearing needs: No Vision needs: Yes Female Reproductive History Menstrual Age of Menarche: 8 Review of Systems Const All systems reviewed & are unremarkable except as noted in HPI and below Reports as per HPI and Reports no additional complaints GI Reports no additional complaints Reports no additional complaints Assessment & Plan Assessment & Plan (1) Pelvic pain: Code(s): R10.2 - Pelvic and perineal pain Plan: Discussed with the patient the results the ultrasound showing bilateral PCOS features of bilateral ovaries. Instructions given the patient to call in case of persistent or worsening of her pelvic pain. (2) PCOS (polycystic ovarian syndrome): Comment: Hirsutism/oligomenorrhea rule out PCOS Code(s): E28.2 - Polycystic ovarian syndrome Plan: Will order testosterone total and free, TSH, prolactin, 17 hydroxyprogesterone and urine 24 hour cortisol. Instructions given the patient to schedule 2 week follow-up appointment. All questions answered, the patient verbalized understanding. I spent a total of 20 minutes reviewing the chart, talking to the patient via video and documenting in the medical record. Orders: Orders Testosterone, Free/Total Today L68.0 - Hirsutism, N92.6 - Irregular menstruation, unspecified 17 Hydroxyprogesterone Today L68.0 - Hirsutism, N92.6 - Irregular menstruation, unspecified Cortisol, Free 24Hr Urine Today L68.0 - Hirsutism, N92.6 - Irregular menstruation, unspecified Thyroid Stimulating Hormone Today L68.0 - Hirsutism, N92.6 - Irregular menstruation, unspecified Prolactin Today L68.0 - Hirsutism, N92.6 - Irregular menstruation, unspecified Telehealth Telehealth Location of provider rendering services: practice address Location of patient: address on file Patient Identification confirmed using: Name, : Yes Telehealth method: video Patient verbally consented to treatment: Yes Patient verbally consented to billing insurance company: Yes Patient informed of any privacy concerns related to visit: Yes Coding Level of Care Code Tele Est Pt Level 3 (04317) Diagnoses Pelvic pain R10.2 PCOS (polycystic ovarian syndrome) E28.2
== END 2023-04-22 09:27 | disposition home or self-care (01) ==
LOC: HO.HWS 09:09
PROVIDERS: PCP Internal Medicine; Visit Provider Obstetrics & Gynecology
DX: R10.2 Pelvic and perineal pain (principal); E28.2 Polycystic ovarian syndrome
CPT/HCPCS: 99213

== ENCOUNTER 2023-04-24 12:24 | Outpatient (REF) | payer OTHER, SELFPAY ==
[2023-05-01 16:34] LABS: Cortisol Free, 24 Hr Urine 19.1 mcg/24 h (4.0-50.0); Creatinine, 24 Hr Urine 2.25 g/24 h (0.50-2.15); Total Volume, 24 Hr Urine 1500 mL
== END 2023-04-24 12:25 | disposition home or self-care (01) ==
LOC: HO.LNP 12:24
PROVIDERS: Visit Provider Obstetrics & Gynecology
DX: L68.0 Hirsutism (principal); N92.6 Irregular menstruation, unspecified
CPT/HCPCS: 82530

== ENCOUNTER 2023-04-29 10:30 | Outpatient (AMB) | payer OTHER, SELFPAY ==
--- NOTE | 2023-04-29 10:31 | A.OFFVIS_ITS ---
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 24 hour urine cortisol has not been done yet Total testosterone and free testosterone were both elevated at 288 ng/dl /40. pg/dl3 17 hydroxyprogesterone within normal. Pelvic ultrasound done recently showed the following: The uterus is of normal size and echogenicity measuring 9.6 x 2.8 x 3.6 cm. The uterus appears normal. A regular homogeneous endometrium is identified measuring 0.5 cm in thickness. The right ovary measures 5.0 x 4.1 x 5.1 cm, volume 55 mL. Right ovary is only visible transabdominally. Cannot assess follicle count. The left ovary measures 6.2 x 3.1 x 3.6 cm, volume 36 mL. Estimated 12-14 antral follicles. There is no pelvic free fluid. [facility] Medical History Obese Keratoconus of both eyes Pneumonia due to COVID-19 virus Asthma PCOS (polycystic ovarian syndrome) Surgical History Hx laparoscopic cholecystectomy History of hysteroscopy History of appendectomy Corneal transplant status Family History Mother Hypertension Father Hypertension Housing: Apartment Alcohol intake: never Patient Tobacco Use Status: Current someday Tobacco user Tobacco use type: Cigarette Cigarettes Per Day: 3 e-Cigarette/Vaping Use: Never Used Second Hand Smoke Exposure: No service: No Current occupational status: unemployed Gender identity: Female Cognitive needs: No Hearing needs: No Vision needs: Yes Female Reproductive History Menstrual Age of Menarche: 8 Review of Systems Const All systems reviewed & are unremarkable except as noted in HPI and below Reports as per HPI and Reports no additional complaints GI Reports no additional complaints Reports no additional complaints Assessment & Plan Assessment & Plan (1) Elevated testosterone level: Code(s): R79.89 - Other specified abnormal findings of blood chemistry Plan: Discussed with the patient the results of total and free testosterone, since total testosterone is elevated above 150 ng/dL will refer to endocrinology to rule out most serious cause of hyperandrogenism. Instructed the patient to call our office back in case a referral appointment is not scheduled, missed or canceled so that we will assist on rescheduling another appointment, the patient verbalized understanding agreed with the plan. All questions answered, the patient verbalized understanding I spent a total of 20 minutes reviewing the chart, talking to the patient via voice and documenting in the medical record. Orders: Referrals Endocrinology Referral R79.89 - Other specified abnormal findings of blood chemistry Telehealth Telehealth Location of provider rendering services: practice address Location of patient: other ([place]) Patient Identification confirmed using: Name, : Yes Telehealth method: voice only Patient verbally consented to treatment: Yes Patient verbally consented to billing insurance company: Yes Patient informed of any privacy concerns related to visit: Yes Coding Level of Care Code Tele Est Pt Level 1 (05674) Diagnoses Elevated testosterone level R79.89
== END 2023-04-29 12:23 | disposition home or self-care (01) ==
LOC: HO.HWS 10:30
PROVIDERS: PCP Internal Medicine; Visit Provider Obstetrics & Gynecology
DX: R79.89 Other specified abnormal findings of blood chemistry (principal)
CPT/HCPCS: 99211

== ENCOUNTER → 2023-04-29 10:30 | Outpatient (BNVA) | payer OTHER, SELFPAY | PROVIDERS: PCP Internal Medicine; Visit Provider Obstetrics & Gynecology ==

== ENCOUNTER 2023-07-20 13:12 | Outpatient (AMB) | payer OTHER, SELFPAY ==
--- NOTE | 2023-07-20 13:13 | MHC.PC.OV ---
Vital Signs 07/20/23 13:14 BP 132/86 Comment readings given by patient Intake Visit Reasons: F/U on HTN [phone] Intake Note: Telehealth visit follow up HTN Sponge Hooker Required: No Accompanied by: Self / Same As Patient Allergies citalopram Allergy (Intermediate, Verified 07/20/23 13:20) nausea ibuprofen [From MOTRIN] Allergy (Intermediate, Verified 07/20/23 13:20) VOMITING Medication List - Last Reconciled 07/20/23 by Lucille Carver MD cholecalciferol (vitamin D3) 25 mcg PO DAILY fluticasone propionate 44 mcg/actuation (Flovent HFA) 1 puff inhalation BID 30 days medroxyprogesterone (Provera) 10 mg PO DAILY 10 days mometasone 50 mcg/actuation (Asmanex HFA) 2 inhalations inhalation BID 30 days nebulizers (AeroEclipse II Nebulizer) As directed Ventolin HFA 90 mcg/actuation (albuterol sulfate) 2 puffs inhalation Q6H PRN 30 days NS Tobacco use date assessed: 07/20/23 Dental Screening Dental Screen Date: 07/20/23 Did you have a dental visit in the last 12 months?: No Did you have a dental problem in the last 6 months where you did not have access to dental care?: No Was dental information given to patient?: Patient has dentist HPI HPI Comments History of Present Illness Details This is a 33-year-old female with asthma that has tele health visit by phone complaining of nasal congestion, generalized weakness and cough that started about 6 days ago but worsened 3 days ago with fever. COVID test was negative at home. Will order COVID, flu and RSV test. She is requiring rescue inhaler multiple times for the past week due to shortness of breath and wheezing. Nebulizer machine was sent. [facility] Medical History (Updated 07/20/23 @ 13:28 by Lucille Carver MD) Obese Keratoconus of both eyes Pneumonia due to COVID-19 virus Asthma PCOS (polycystic ovarian syndrome) Surgical History Hx laparoscopic cholecystectomy History of hysteroscopy History of appendectomy Corneal transplant status Family History Mother Hypertension Father Hypertension Social History Housing: Apartment Alcohol intake: never Patient Tobacco Use Status: Current someday Tobacco user Tobacco use type: Cigarette Cigarettes Per Day: 3 e-Cigarette/Vaping Use: Never Used Second Hand Smoke Exposure: No service: No Current occupational status: unemployed Gender identity: Female Cognitive needs: No Hearing needs: No Vision needs: Yes Female Reproductive History Menstrual Age of Menarche: 8 Questionnaire PHQ-9 Over the last 2 weeks, how often have you been bothered by any of the following problems? 1. Little interest or pleasure in doing things: not at all 2. Feeling down, depressed, or hopeless: not at all 3. Trouble falling or staying asleep, or sleeping too much: not at all 4. Feeling tired or having little energy: not at all 5. Poor appetite or overeating: not at all 6. Feeling bad about yourself - or that you are a failure or have let yourself or your family down: not at all 7. Trouble concentrating on things, such as reading the newspaper or watching television: not at all 8. Moving or speaking so slowly that other people could have noticed. Or the opposite - being so fidgety or restless that you have been moving around a lot more than usual: not at all 9. Thoughts that you would be better off or of hurting yourself in some way: not at all Total score: 0 Depression Screening Interpretation: Negative Depression Screening Done: Yes 04740 - PHQ-9 Billing: Yes Source: Developed by Drs. Carlos Murillo, Karime Covington, Sergio Rosales and colleagues, with an educational joao from [employer]. Thrive Questionnaire Date Thrive assessed: 07/20/23 I am a: Patient What is your living situation today?: I have a steady place to live Within the past 12 months, did the food you bought not last and you didn't have the money to get more?: Never true Within the past 12 months, did you worry whether your food would run out before you got money to buy more?: Never true Do you have trouble paying for medicines?: No Do you have trouble getting transportation to medical appointments?: No Do you have trouble paying your heating and electricity bill?: No Do you have trouble taking care of your child, family member or friend?: No Do you have trouble with day-to-day activities such as bathing, preparing meals, shopping, managing finances, etc.?: No Are you currently unemployed and looking for a job?: No Are you interested in more education?: No Please select the resources that you would like help with: None Currently or been in a relationship where the following occur: no concerns reported THRIVE Score: 0 AUDIT C Alcohol Use Questionnaire (AUDIT-C) 1. How often do you have a drink containing alcohol?: Never Total Score: 0 THAO-7 AMB Questionnaire THAO-7 Date THAO - 7 assessed: 07/20/23 Feeling nervous, anxious, or on edge: 0 = Not at all Not being able to stop or control worryin = Not at all Worrying too much about different things: 0 = Not at all Trouble relaxin = Not at all Being so restless that it is hard to sit still: 0 = Not at all Becoming easily annoyed or irritable: 0 = Not at all Feeling afraid as if something awful might happen: 0 = Not at all Total THAO-7 score (0-4 normal; 5-9 mild; 10-14 moderate; 15-21 severe): 0 Source: Developed by Drs. Carlos Murillo, Karime Covington, Sergio Rosales and colleagues, with an educational joao from [employer]. THAO-7 Assessment Billing THAO-7 Assessment Tool: THAO-7 Assessment 53984 Review of Systems Const All systems reviewed & are unremarkable except as noted in HPI and below Eyes Reports no additional complaints, Denies change in vision and Denies other visual disturbances ENT Reports nasal congestion and Reports nasal discharge Card Denies chest pain at rest, Denies chest pain with activity, Denies edema, Denies irregular heart rhythm, Denies claudication, Denies dyspnea, Denies dyspnea on exertion, Denies orthopnea, Denies paroxysmal nocturnal dyspnea and Denies slow heart rate Resp Denies cough, Denies dyspnea and Denies dyspnea on exertion GI Denies abdominal pain, Denies change in bowel habits, Denies excessive flatus, Denies nausea and Denies vomiting Denies urinary incontinence, Denies urinary hesitancy and Denies urinary urgency Musc Denies abnormal gait, Denies atrophy, Denies deformity and Denies limited range of motion Skin/Breast Denies bleeding lesions, Denies changing lesions and Denies rash Neuro Denies abnormal gait and Denies lack of coordination Physical exam (Primary Care) Vital Signs: Last Vital Signs BP 132/86 07/20/23 13:14 Tobacco/Smoking Status: Tobacco use Status Tobacco use date assessed 07/20/23 07/20/23 13:18 Patient Tobacco Use Status Current someday Tobacco 07/20/23 13:18 Tobacco use type Cigarette 07/20/23 13:18 e-Cigarette/Vaping Use Never Used 07/20/23 13:18 PHQ-9: PHQ-9 Score PHQ-9: Total score 0 07/20/23 13:18 Depression Screening Interpretation: Negative Thrive Assessment: Date of Thrive Assessment Date Thrive assessed 07/20/23 07/20/23 13:18 Currently or been in a relationship where the following occur: no concerns reported Telehealth Telehealth Location of provider rendering services: practice address Location of patient: address on file Patient Identification confirmed using: Name, : Yes Telehealth method: voice only Patient verbally consented to treatment: Yes Patient verbally consented to billing insurance company: Yes Patient informed of any privacy concerns related to visit: Yes Minutes spent on Phone/Video with Pt.: 15 Assessment and Plan Assessment & Plan (1) URI (upper respiratory infection): Code(s): J06.9 - Acute upper respiratory infection, unspecified Plan: Start benzonatate as needed for cough. (2) Asthma: Code(s): J45.909 - Unspecified asthma, uncomplicated Plan: Use rescue inhaler as needed. Orders: Orders SARS-CoV2/FLU/RSV Today R09.89 - Other specified symptoms and signs involving the circulatory and respiratory systems Medications: New benzonatate 100 mg PO BID 5 days PRN 10 caps 0RF cough Refilled nebulizers (AeroEclipse II Nebulizer) As directed 1 ea 0RF J45.909 - Unspecified asthma, uncomplicated Ventolin HFA 90 mcg/actuation (albuterol sulfate) 2 puffs inhalation Q6H 30 days PRN 8 grams 1RF shortness of breath or wheezing NS Coding Level of Care Code Tele Est Pt Level 3 (57096) Diagnoses URI (upper respiratory infection) J06.9 Asthma J45.909 Additional Codes THAO-7 Assessment Billing - THAO-7 Assessment Tool: THAO-7 Assessment 34116 ([id number]) Time Spent (min) 15
[2023-07-20 13:14] VITALS: BP 132/86
== END 2023-07-20 15:42 | disposition home or self-care (01) ==
LOC: HO.HMGH 13:12
PROVIDERS: PCP Internal Medicine; Visit Provider Internal Medicine
DX: J06.9 Acute upper respiratory infection, unspecified (principal); J45.909 Unspecified asthma, uncomplicated
CPT/HCPCS: 99213

== ENCOUNTER 2023-09-09 08:02 | Outpatient (REF) | payer OTHER, SELFPAY ==
--- NOTE | ~2023-09-09 | US_ITS ---
EXAMINATION: US ABDOMEN COMPLETE CLINICAL INFORMATION: Splenomegaly, not elsewhere classified. COMPARISON: MRI abdomen 10/20/2018. Ultrasound abdomen 10/20/2018. CT abdomen and pelvis 10/20/2018. TECHNIQUE: Real-time imaging of the abdominal viscera. FINDINGS: PANCREAS: Limited. The visualized pancreatic head and body are normal in appearance. The remainder of the pancreas is obscured from visualization by the overlying bowel gas. ABDOMINAL AORTA: The proximal, mid, and distal segments are normal in caliber. INFERIOR VENA CAVA: Visualized portions are normal. LIVER: There is hepatomegaly, with a longitudinal span of 18.9 cm. The liver contour is normal. There is diffuse increased liver parenchymal echogenicity. No focal hepatic lesion. There is no intrahepatic biliary duct dilatation seen. GALLBLADDER: Surgically absent. COMMON BILE DUCT: Normal in caliber measuring 0.5 cm in diameter. RIGHT KIDNEY: Normal. No hydronephrosis. No renal calculi or focal parenchymal lesions. The kidney measures 12.3 cm in maximum dimension. LEFT KIDNEY: Normal. No hydronephrosis. No renal calculi or focal parenchymal lesions. The kidney measures 13.0 cm in maximum dimension. SPLEEN: Normal. The spleen measures 12.4 cm in maximum dimension. FREE FLUID: None. US/US abdomen complete IMPRESSION: 1. There is hepatomegaly. 2. There is generalized increase in hepatic echotexture, consistent with fatty infiltration or hepatocellular disease. Please correlate clinically. No focal hepatic mass or intrahepatic biliary dilatation is seen. 3. The gallbladder is surgically absent. 4. Technically limited ultrasound examination of the pancreatic tail.
--- NOTE | ~2023-09-09 | XR_ITS ---
EXAMINATION: XR CHEST CLINICAL INFORMATION: Splenomegaly COMPARISON: PA view of the chest. TECHNIQUE: October 07, 2020 frontal view of the chest. November 10, 2018 frontal and lateral views of the chest. FINDINGS: Lung volumes are low. There is no gross pneumothorax. Heart size is normal. No pleural effusion. No focal consolidation to suggest pneumonia. XR/XR chest 2V IMPRESSION: No evidence of pneumonia.
[2023-09-09 09:19] LABS: MANUAL DIFF FLAG NO
[2023-09-09 10:02] LABS: Basophils Absolute Auto 0.1 X10*3/uL (0.0-0.2); Basophils Percent Auto 0.6 % (0-2); Eosinophils Absolute Auto 0.4 X10*3/uL (0.0-0.4); Eosinophils Percent Auto 4.9 % (0-4); Hematocrit 43.8 % (37.0-47.0); Hemoglobin 14.8 g/dl (12.0-16.0); Imm Gran Abs Auto 0.02 X10*3/uL (0.00-0.03); Imm Gran Pct Auto 0.2 % (0.0-0.4); Immature Retic Fraction 11.9 % (3.0-15.9); Lymphocytes Absolute Auto 3.8 X10*3/uL (1.2-4.9); Lymphocytes Percent Auto 42.4 % (20-40); Mean Corpuscular HGB Conc 33.8 g/dl (31.0-35.0); Mean Corpuscular Hemoglobin 27.9 pg (27.0-33.0); Mean Corpuscular Volume 82.5 fL (80.0-98.0); Mean Platelet Volume 10.9 fL (9.4-12.3); Monocytes Absolute Auto 0.6 X10*3/uL (0.1-1.2); Monocytes Percent Auto 6.4 % (2-11); Neutrophils Absolute Auto 4.1 x10*3/uL (2.0-8.3); Neutrophils Percent Auto 45.5 % (45-73); Platelet Count 303 X10*3/uL (160-400); Red Blood Count 5.31 X10*6/uL (4.20-5.50); Red Cell Distribution Width 14.4 % (11.0-16.0); Retic HGB Equivalent 31.3 pg (30.0-35.0); Reticulocyte Percent 2.4 % (0.5-1.8); Reticulocytes Absolute 0.125 X10*6/uL (0.026-0.095)
[2023-09-09 11:12] LABS: HIV AB/AG Nonreactive (Nonreactive); HIV Num 1 0.05 S/CO (0.00-0.99)
[2023-09-09 11:26] LABS: Sickle Cell Scr NEGATIVE (NEGATIVE)
[2023-09-09 11:28] LABS: Monotest Negative (Negative)
[2023-09-09 11:36] LABS: Alanine Aminotransferase 46 U/L (0-31); Alkaline Phosphatase 66 U/L (39-117); Anion Gap 13 (12-20); Aspartate Amino Transferase 32 U/L (5-31); Bilirubin Total 0.5 mg/dL (0.0-1.0); Blood Urea Nitrogen 10 mg/dL (9-16); Calcium 9.7 mg/dL (8.4-10.2); Carbon Dioxide 27 mmol/L (22-29); Chloride 104 mmol/L (96-108); Estimated Glomerular Filt Rate > 60; Glucose Random 89 mg/dL (60-115); Potassium 3.7 mmol/L (3.3-5.1); Sodium 140 mmol/L (135-145); Total Protein 7.7 g/dL (6.5-8.0)
[2023-09-10 18:48] LABS: Anti DNA DS Antibody 2 IU/mL
[2023-09-13 09:23] LABS: Anti Nuclear Antibody Screen NEGATIVE (NEGATIVE)
[2023-09-14 15:07] LABS: Babesia IgG <1:64 titer (<1:64); Babesia IgM <1:20 titer (<1:20)
[2023-09-15 18:53] LABS: Schistosoma IgG Antibody <1.00
== END 2023-09-09 08:03 | disposition home or self-care (01) ==
LOC: HO.US 08:02
PROVIDERS: PCP Internal Medicine; Visit Provider Internal Medicine
DX: R16.1 Splenomegaly, not elsewhere classified (principal)
CPT/HCPCS: 36415; 71046; 76700; 80053; 85025; 85045; 85660; 86038; 86225; 86308; 86682; 86753; 87389

== ENCOUNTER 2023-10-14 10:13 | Outpatient (AMB) | payer OTHER, SELFPAY ==
--- NOTE | 2023-10-14 10:13 | MHC.OFFVIS ---
Intake Visit Reasons: labs results follow up Mold Shaker Required: No Information Interpreted: non-clinical & clinical Allergies citalopram Allergy (Intermediate, Verified 10/14/23 10:13) nausea ibuprofen [From MOTRIN] Allergy (Intermediate, Verified 10/14/23 10:13) VOMITING HPI Comments Details: The patient is scheduled tele health visit for follow-up. The patient was referred to [facility] endocrinology for elevated testosterone, was seen by on 08/08/2023, the impression was hyperandrogen due to PCOS, she was referred to bariatric surgery for gastric bypass, The following workup was done by : FSH/LH were 3.8/9.7 estradiol was 78, 17 hydroxyprogesterone 108 interested in day on 09/04 9, DHEA-S 118 and testosterone was 330 days; since testosterone was elevated CT scan of abdomen pelvis was ordered by the regulatory coordinator Dr. Sanchez , according to an addendum in the note entered on 08/23/2023, CT scan report is unavailable but according to patient the CT scan was within normal, the patient has a follow-up appointment with endocrinology [facility] Medical History Obese Keratoconus of both eyes Pneumonia due to COVID-19 virus Asthma PCOS (polycystic ovarian syndrome) Surgical History Hx laparoscopic cholecystectomy History of hysteroscopy History of appendectomy Corneal transplant status Family History Mother Hypertension Father Hypertension Social History Housing: Apartment Alcohol intake: never Patient Tobacco Use Status: Current someday Tobacco user Tobacco use type: Cigarette Cigarettes Per Day: 3 e-Cigarette/Vaping Use: Never Used Second Hand Smoke Exposure: No service: No Current occupational status: unemployed Gender identity: Female Cognitive needs: No Hearing needs: No Vision needs: Yes Female Reproductive History Menstrual Age of Menarche: 8 Review of Systems Const All systems reviewed & are unremarkable except as noted in HPI and below Reports as per HPI and Reports no additional complaints GI Reports no additional complaints Reports no additional complaints Telehealth Telehealth Telehealth Platform: Telephone Location of provider rendering services: practice address Location of patient: address on file Patient Identification confirmed using: Name, : Yes Telehealth method: voice only Patient verbally consented to treatment: Yes Patient verbally consented to billing insurance company: Yes Patient informed of any privacy concerns related to visit: Yes Assessment & Plan Assessment & Plan (1) PCOS (polycystic ovarian syndrome): Comment: Hirsutism/oligomenorrhea rule out PCOS Code(s): E28.2 - Polycystic ovarian syndrome Category: Medical Plan: The patient is being followed up by endocrinology at [facility], and has a follow-up appointment to be seen regarding hyperandrogenism/PCOS. Encourage the patient to make sure she does not skip her appointment with [facility] endocrinology. All questions answered, the patient verbalized understanding. I spent a total of 20 minutes reviewing the chart, talking to the patient via phone and documenting in the medical record. Coding Level of Care Code Tele Est Pt Level 1 (47099) Diagnoses PCOS (polycystic ovarian syndrome) E28.2
== END 2023-10-14 11:35 | disposition home or self-care (01) ==
LOC: HO.HWS 10:13
PROVIDERS: PCP Internal Medicine; Visit Provider Obstetrics & Gynecology
DX: E28.2 Polycystic ovarian syndrome (principal)
CPT/HCPCS: 99211

== ENCOUNTER → 2023-10-14 10:13 | Outpatient (BNVA) | payer OTHER, SELFPAY | PROVIDERS: PCP Internal Medicine; Visit Provider Obstetrics & Gynecology ==

== ENCOUNTER 2024-03-02 14:27 | Outpatient (REF) | payer OTHER, SELFPAY ==
[2024-03-03 05:41] LABS: HBsAGNum1 0.27 S/CO (0.00-0.99); HIV AB/AG Nonreactive (Nonreactive); HIV Num 1 0.04 S/CO (0.00-0.99); Hepatitis B Surface Antigen Negative (Negative); Syphilis Screen Nonreactive (Nonreactive)
[2024-03-03 05:58] LABS: CT PCR NOT DETECTED (Not Detect.); NG PCR NOT DETECTED (Not Detect.)
[2024-03-03 10:45] LABS: Bacterial Vaginosis PCR NEGATIVE (Negative); Candida Group PCR DETECTED (Not Detect); Candida glab krusei PCR NOT DETECTED (Not Detect); Trichomonas vaginalis PCR NOT DETECTED (Not Detect)
== END 2024-03-02 14:28 | disposition home or self-care (01) ==
LOC: HO.LNP 14:27
PROVIDERS: PCP Internal Medicine; Visit Provider Obstetrics & Gynecology
DX: N63.21 Unspecified lump in the left breast, upper outer quadrant (principal); Z11.3 Encounter for screening for infections with a predominantly sexual mode of transmission; Z20.2 Contact with and (suspected) exposure to infections with a predominantly sexual mode of transmission
CPT/HCPCS: 0352U; 86780; 87340; 87389; 87491; 87591; 99212

== ENCOUNTER 2024-03-02 14:27 | Outpatient (AMB) | payer OTHER, SELFPAY ==
--- NOTE | 2024-03-02 14:34 | A.OFFVIS_ITS ---
Vital Signs 03/02/24 14:36 Height 5 ft 4 in Weight 230 lb BMI 39.5 Intake Visit Reasons: STD /breast check Marketing Research Coordinator Required: Yes Marketing Research Coordinator Language: Consulting Actuary Services: Marketing Research Coordinator Present (in person) Marketing Research Coordinator Name: Veronica CORTEZ Information Interpreted: non-clinical & clinical Ear Muff Assembler: Ear Muff Assembler Present (Veronica CORTEZ) Accompanied by: Self / Same As Patient Allergies citalopram Allergy (Intermediate, Verified 03/02/24 14:37) nausea ibuprofen [From MOTRIN] Allergy (Intermediate, Verified 03/02/24 14:37) VOMITING HPI Comments Details: Presenting complaining of left breast lump with no discharge any other concerns. In addition the patient is requesting STD screen [facility] Medical History Obese Keratoconus of both eyes Pneumonia due to COVID-19 virus Asthma PCOS (polycystic ovarian syndrome) Surgical History Hx laparoscopic cholecystectomy History of hysteroscopy History of appendectomy Corneal transplant status Family History Mother Hypertension Father Hypertension Social History Housing: Apartment Alcohol intake: never Patient Tobacco Use Status: Current someday Tobacco user Tobacco use type: Cigarette Cigarettes Per Day: 3 e-Cigarette/Vaping Use: Never Used Second Hand Smoke Exposure: No service: No Current occupational status: unemployed Gender identity: Female Cognitive needs: No Hearing needs: No Vision needs: Yes Female Reproductive History Menstrual Age of Menarche: 8 Date of last menstrual period: 02/21/24 Physical Exam Vital Signs: BMI result Body Mass Index 39.5 Chest Breast/axilla palpation: normal palpation of the breasts (Right breast wnl, left breast 0.5 cm lump at 2 o'clock 3 cm fron nipple) Assessment & Plan Assessment & Plan (1) Breast lump on left side at 2 o'clock position: Comment: 3 cm from the nipple Code(s): N63.21 - Unspecified lump in the left breast, upper outer quadrant Category: Medical Plan: Discussed with the patient the finding on Breast exam (breast lump) .The differential diagnosis includes but not limited to lump/cyst/pre cancer/cancer or dense breast tissue. The work up includes breast US and diagnostic mammogram D instructions given the patient to schedule a follow-up appointment within 2 weeks (2) Screen for STD (sexually transmitted disease): Code(s): Z11.3 - Encounter for screening for infections with a predominantly sexual mode of transmission Category: Medical Plan: STD screening tests done includes: BV panel for trichomonas, GC/CT will send p atient for serology std screening for HIV, RPR, Hep b s Ag, HepC Ab. Instructions given the patient to schedule a follow-up appointment for repeat serology screen in 6 months for possible false negatives. Orders: Orders CT NG by PCR Today Z20.2 - Contact with and (suspected) exposure to infections with a predominantly sexual mode of transmission Bacterial Vaginosis Panel Today Z20.2 - Contact with and (suspected) exposure to infections with a predominantly sexual mode of transmission MM tomosynthesis diagnostic LT Today N63.21 - Unspecified lump in the left breast, upper outer quadrant HIV Ab/Ag Today Z20.2 - Contact with and (suspected) exposure to infections with a predominantly sexual mode of transmission US breast RT complete Today N63.21 - Unspecified lump in the left breast, upper outer quadrant Hepatitis B Surface Antigen Today Z20.2 - Contact with and (suspected) exposure to infections with a predominantly sexual mode of transmission Syphilis Screen Today Z20.2 - Contact with and (suspected) exposure to infections with a predominantly sexual mode of transmission Hepatitis C Antibody Today Z20.2 - Contact with and (suspected) exposure to infections with a predominantly sexual mode of transmission Coding Level of Care Code Est Pt Level 3 (36257) Diagnoses Breast lump on left side at 2 o'clock position N63.21 Screen for STD (sexually transmitted disease) Z11.3
[2024-03-02 14:36] VITALS: BMI 39.5
== END 2024-03-02 14:55 | disposition home or self-care (01) ==
LOC: HO.HWS 14:27
PROVIDERS: PCP Internal Medicine; Visit Provider Obstetrics & Gynecology
DX: N63.21 Unspecified lump in the left breast, upper outer quadrant (principal); Z11.3 Encounter for screening for infections with a predominantly sexual mode of transmission
CPT/HCPCS: 99213

== ENCOUNTER 2024-03-02 15:01 | Outpatient (REF) | payer OTHER, SELFPAY | END 2024-03-02 15:02 | disposition home or self-care (01) | LOC: HO.LAB 15:01 | PROVIDERS: PCP Internal Medicine; Visit Provider Obstetrics & Gynecology | DX: Z13.89 Encounter for screening for other disorder (principal) ==

== ENCOUNTER 2024-03-09 13:33 | Outpatient (REF) | payer OTHER, SELFPAY ==
[2024-03-09 14:39] LABS: Influenza A PCR NEGATIVE (Negative); Influenza B PCR NEGATIVE (Negative); Resp Syncy Virus RNA Qual PCR NEGATIVE (Negative); SARS COV2 PCR INHOUSE NEGATIVE (Negative)
== END 2024-03-09 13:34 | disposition home or self-care (01) ==
LOC: HO.LAB 13:33
PROVIDERS: Visit Provider Physician Assistant
DX: R09.89 Other specified symptoms and signs involving the circulatory and respiratory systems (principal); R05.9 Cough, unspecified
CPT/HCPCS: 0241U; 71046

== ENCOUNTER 2024-03-21 12:17 | Outpatient (AMB) | payer OTHER, SELFPAY ==
[2024-03-21 12:23] VITALS: BP 118/80; BMI 39.6
--- NOTE | 2024-03-21 12:23 | A.OFFPC_ITS ---
Vital Signs 03/21/24 12:23 Height 5 ft 4 in Weight 231 lb BMI 39.6 BP 118/80 Blood Pressure Location Lt brachial Position Sitting Intake Visit Reasons: annual exam Intake Note: Patient here for an Annual Physical Exam Retail Pharmacy Merchandiser Required: No Accompanied by: Self / Same As Patient Allergies citalopram Allergy (Intermediate, Verified 03/21/24 12:36) nausea ibuprofen [From MOTRIN] Allergy (Intermediate, Verified 03/21/24 12:36) VOMITING Medication List - Last Reconciled 03/21/24 by Lucille Carver MD albuterol sulfate 2.5 mg (3 mL) inhalation Q6H PRN 30 days fluticasone propionate 44 mcg/actuation (Flovent HFA) 1 puff inhalation BID 30 days medroxyprogesterone (Provera) 10 mg PO DAILY 10 days nebulizers (AeroEclipse II Nebulizer) As directed Ventolin HFA 90 mcg/actuation (albuterol sulfate) 2 puffs inhalation Q6H PRN 30 days NS Tobacco use date assessed: 07/20/23 Dental Screening Dental Screen Date: 07/20/23 HPI HPI Comments History of Present Illness Details This is a 34-year-old female that comes for her physical exam. She has intentionally lost 100 lb in a year after having bariatric surgery. Pap smear done last year was normal. Complains of lumbar pain that does not radiate to the legs and started few months ago. No previous trauma. No fever, bowel or bladder incontinence. [facility] Medical History (Updated 03/21/24 @ 12:50 by Lucille Carver MD) Morbid obesity due to excess calories BMI 50.0-59.9, adult Obese Keratoconus of both eyes Pneumonia due to COVID-19 virus Asthma PCOS (polycystic ovarian syndrome) Surgical History (Updated 03/21/24 @ 12:29 by DANA Neumann) History of sleeve gastrectomy Hx laparoscopic cholecystectomy History of hysteroscopy History of appendectomy Corneal transplant status Family History Mother Hypertension Father Hypertension Social History (Updated 03/21/24 @ 12:42 by Lucille Carver MD) Housing: Apartment Alcohol intake: never Patient Tobacco Use Status: Former Tobacco user Tobacco use type: Cigarette Cigarettes Per Day: 3 e-Cigarette/Vaping Use: Never Used Second Hand Smoke Exposure: No service: No Current occupational status: unemployed Gender identity: Female Cognitive needs: No Hearing needs: No Vision needs: Yes Female Reproductive History Menstrual Age of Menarche: 8 Questionnaire PHQ-9 Over the last 2 weeks, how often have you been bothered by any of the following problems? 1. Little interest or pleasure in doing things: not at all 2. Feeling down, depressed, or hopeless: not at all 3. Trouble falling or staying asleep, or sleeping too much: several days 4. Feeling tired or having little energy: several days 5. Poor appetite or overeating: nearly every day 6. Feeling bad about yourself - or that you are a failure or have let yourself or your family down: not at all 7. Trouble concentrating on things, such as reading the newspaper or watching television: not at all 8. Moving or speaking so slowly that other people could have noticed. Or the opposite - being so fidgety or restless that you have been moving around a lot more than usual: not at all 9. Thoughts that you would be better off or of hurting yourself in some way: not at all Total score: 5 Depression Screening Interpretation: Positive Depression Screening Follow-up: Existing condition and Follow-up Visit Requested Depression Screening Done: Yes 12893 - PHQ-9 Billing: Yes Source: Developed by Drs. Carlos Murillo, Karime Covington, Sergio Rosales and colleagues, with an educational joao from [employer] Thrive Questionnaire Date Thrive assessed: 03/14/24 I am a: Patient What is your living situation today?: I have a steady place to live Within the past 12 months, did the food you bought not last and you didn't have the money to get more?: Never true Within the past 12 months, did you worry whether your food would run out before you got money to buy more?: Never true Do you have trouble paying for medicines?: No Do you have trouble getting transportation to medical appointments?: No Do you have trouble paying your heating and electricity bill?: No Do you have trouble taking care of your child, family member or friend?: I choose not to answer this question Do you have trouble with day-to-day activities such as bathing, preparing meals, shopping, managing finances, etc.?: I choose not to answer this question Are you currently unemployed and looking for a job?: I choose not to answer this question Are you interested in more education?: I choose not to answer this question Please select the resources that you would like help with: None Currently or been in a relationship where the following occur: I choose not to answer THRIVE Score: 0 AUDIT C Alcohol Use Questionnaire (AUDIT-C) 1. How often do you have a drink containing alcohol?: Monthly or less 2. How many drinks containing alcohol do you have on a typical day when you are drinking?: 1 or 2 3. How often do you have six or more drinks on one occasion?: Never Total Score: 1 Score Reviewed/Action Taken: Yes THAO-7 AMB Questionnaire THAO-7 Date THAO - 7 assessed: 07/20/23 Feeling nervous, anxious, or on edge: 1 = Several days Not being able to stop or control worryin = Not at all Worrying too much about different things: 0 = Not at all Trouble relaxin = Not at all Being so restless that it is hard to sit still: 0 = Not at all Becoming easily annoyed or irritable: 1 = Several days Feeling afraid as if something awful might happen: 0 = Not at all Total THAO-7 score (0-4 normal; 5-9 mild; 10-14 moderate; 15-21 severe): 2 Source: Developed by Drs. Carlos Murillo, Karime Covington, Sergio Rosales and colleagues, with an educational joao from [employer] THAO-7 Assessment Billing THAO-7 Assessment Tool: THAO-7 Assessment 64174 Review of Systems Const All systems reviewed & are unremarkable except as noted in HPI and below Card Denies chest pain at rest, Denies chest pain with activity, Denies edema, Denies irregular heart rhythm, Denies claudication, Denies dyspnea, Denies dyspnea on exertion, Denies orthopnea, Denies paroxysmal nocturnal dyspnea and Denies slow heart rate Resp Denies cough, Denies dyspnea and Denies dyspnea on exertion GI Denies abdominal pain, Denies change in bowel habits, Denies excessive flatus, Denies nausea and Denies vomiting Denies urinary incontinence, Denies urinary hesitancy and Denies urinary urgency Musc Denies abnormal gait, Reports back pain, Denies atrophy, Denies deformity and Denies limited range of motion Skin/Breast Denies bleeding lesions, Denies changing lesions and Denies rash Neuro Denies abnormal gait, Denies behavioral changes, Denies confusion and Denies lack of coordination Psych Denies behavioral changes and Denies confusion Physical exam (Primary Care) Vital Signs: Last Vital Signs BP 118/80 03/21/24 12:23 BMI result Body Mass Index 39.6 BMI Assessment/Plan discussion: High BMI High, discussed plan: lifestyle, weight reduction, dietary and physical activity Tobacco/Smoking Status: Tobacco use Status Tobacco use date assessed 07/20/23 03/21/24 12:31 Patient Tobacco Use Status Current someday Tobacco 03/21/24 12:31 Tobacco use type Cigarette 03/21/24 12:31 e-Cigarette/Vaping Use Never Used 03/21/24 12:31 PHQ-9: PHQ-9 Score PHQ-9: Total score 5 03/21/24 12:39 Depression Screening Interpretation: Positive Depression Screening Follow-up: Existing condition and Follow-up Visit Requested Thrive Assessment: Date of Thrive Assessment Date Thrive assessed 03/14/24 03/21/24 12:31 Currently or been in a relationship where the following occur: I choose not to answer Const General: No confusion Orientation/consciousness: patient oriented x3 and No confusion HENMT Head: Yes normal to inspection, Yes normocephalic and Yes atraumatic Ears: external ears normal Eyes General: appearance normal, both eyes and all related structures Eyelids: Yes eyelids normal Conjunctivae: conjunctivae normal Neck Neck: Yes normal visual inspection and Yes supple Resp Effort & Inspection: normal respiratory effort Auscultation: clear to auscultation bilaterally Cardio Jugular venous distension: no JVD Rate: regular rate Rhythm: regular rhythm Heart sounds: S1 normal heart sound present and S2 normal heart sound present GI Inspection: Yes normal to inspection Palpation (GI): Soft to palpation and nontender Auscultation: normal bowel sounds Skin General skin exam: no rashes or lesions noted Neuro General: patient oriented x3, no focal motor deficits and No confusion Extrem General: Yes full ROM Psych Appearance: grossly normal Coding Level of Care Code Est Pt Prev Care 18-39y(30309) Diagnoses Physical exam Z00.00 Lumbar pain M54.50 Additional Codes THAO-7 Assessment Billing - THAO-7 Assessment Tool: THAO-7 Assessment 96631 ([id number]) Time Spent (min) 33 Assessment & Plan Assessment & Plan (1) Physical exam: Code(s): Z00.00 - Encounter for general adult medical examination without abnormal findings Category: Medical Plan: Repeat in a year. (2) Lumbar pain: Code(s): M54.50 - Low back pain, unspecified Category: Medical Plan: X-ray ordered. Orders: Orders XR lumbar spine 2-3V Today M54.50 - Low back pain, unspecified Comprehensive [place]. Panel Fast Today Z00.00 - Encounter for general adult medical examination without abnormal findings Lipid Panel Today Z00.00 - Encounter for general adult medical examination without abnormal findings
== END 2024-03-21 12:47 | disposition home or self-care (01) ==
PROVIDERS: PCP Internal Medicine; Visit Provider Internal Medicine
DX: Z00.00 Encounter for general adult medical examination without abnormal findings (principal); M54.50 Low back pain, unspecified

== ENCOUNTER → 2024-03-21 12:17 | Outpatient (BNVA) | payer OTHER, SELFPAY | PROVIDERS: PCP Internal Medicine; Visit Provider Internal Medicine | DX: Z00.01 Encounter for general adult medical examination with abnormal findings (principal); M54.50 Low back pain, unspecified | CPT/HCPCS: 96127; 99395 ==

== ENCOUNTER 2024-04-01 15:32 | Outpatient (REF) | payer OTHER, SELFPAY ==
--- NOTE | ~2024-04-01 | XR_ITS ---
EXAMINATION: XR LUMBOSACRAL SPINE CLINICAL INFORMATION: Lower back pain. COMPARISON: None available. TECHNIQUE: Three views of the lumbosacral spine. FINDINGS: The vertebral bodies and posterior elements are normal. The disc spaces are preserved and the vertebral alignment is normal. There is multi-level mild lumbar endplate arthropathy. The paraspinal soft tissues are normal. There are right upper quadrant surgical clips. XR/XR lumbar spine 2-3V IMPRESSION: 1. No acute fracture or spondylolisthesis is seen. 2. The lumbar disc spaces are well-maintained. 3. There is multi-level mild lumbar endplate arthropathy. Electronically signed by: Raf Pinto MD 04/21/2024 05:29 PM AV [facility]
[2024-04-01 16:57] LABS: Alanine Aminotransferase 25 U/L (0-31); Alkaline Phosphatase 66 U/L (39-117); Anion Gap 11 (12-20); Aspartate Amino Transferase 29 U/L (5-31); Bilirubin Total 0.7 mg/dL (0.0-1.0); Blood Urea Nitrogen 13 mg/dL (9-16); Calcium 9.9 mg/dL (8.4-10.2); Carbon Dioxide 27 mmol/L (22-29); Chloride 108 mmol/L (96-108); Cholesterol 116 mg/dL (<200); Estimated Glomerular Filt Rate > 60; Glucose Fasting 92 mg/dL (60-99); HDL Cholesterol 32 mg/dL (>40); LDL Cholesterol Calculated 65 mg/dL (<100); Potassium 3.8 mmol/L (3.3-5.1); Sodium 142 mmol/L (135-145); Total Protein 7.2 g/dL (6.5-8.0); Triglycerides 98 mg/dL (<150)
[2024-04-02 08:22] LABS: ~HepC Num1 0.15 S/CO (0.00-0.79); ~Hepatitis C Antibody Nonreactive (Nonreactive)
== END 2024-04-01 15:33 | disposition home or self-care (01) ==
LOC: HO.LAB 15:32
PROVIDERS: Obstetrics & Gynecology; PCP Internal Medicine; Visit Provider Internal Medicine
DX: Z00.00 Encounter for general adult medical examination without abnormal findings (principal); Z20.2 Contact with and (suspected) exposure to infections with a predominantly sexual mode of transmission; M54.50 Low back pain, unspecified
CPT/HCPCS: 36415; 72100; 80053; 80061; 86803

== ENCOUNTER 2024-04-25 13:24 | Outpatient (REF) | payer OTHER, SELFPAY ==
--- NOTE | ~2024-04-25 | MM_ITS ---
EXAMINATION: MM DIAGNOSTIC DIGITAL BREAST TOMOSYNTHESIS, BILATERAL CLINICAL INFORMATION: -34-year-old female complaining of palpable lump upper outer quadrant left breast. History of recent 135 pound weight loss. COMPARISON: Mammography: None. Baseline examination. TECHNIQUE: Digital breast tomosynthesis is performed in both the craniocaudal and mediolateral oblique views along with computer-aided detection (CAD). Synthesized 2D images are generated from the tomosynthesis. In addition, targeted left breast ultrasound was performed. FINDINGS: There are scattered areas of fibroglandular density (ACR BI-RADS breast composition Category b). There are bilateral scattered dermal calcifications. There are no suspicious masses, suspicious grouped calcifications, or areas of architectural distortion in either breast. The parenchymal pattern is stable from prior exams. There is no skin or axillary abnormality. Area of palpable abnormality in the upper outer left breast shows no mammographic correlate. ULTRASOUND: CLINICAL INFORMATION: -As above. COMPARISON: None TECHNIQUE: Targeted sonographic evaluation was performed using a high frequency linear transducer. Attention was given to the left breast upper-outer quadrant in the region of palpable concern. Selected archived documentation. FINDINGS: LEFT BREAST: There is a mixture of fatty and fibroglandular tissue. No suspicious mass is seen. There is no pathologic acoustic shadowing. There is no cystic abnormality. There is no sonographic correlate to the region of palpable concern. MM/MM tomosynthesis diagnostic BI IMPRESSION: -No findings suspicious for malignancy. -No imaging correlate to the region of palpable concern upper outer left breast. Recommend clinical management and follow-up. -Otherwise, recommend beginning screening mammography age 40. OVERALL ASSESSMENT: Mammography: BI-RADS 2 - Benign Findings Ultrasound: BI-RADS 2 - Benign Findings RECOMMENDATION: Clinical management. 1. Patient should be managed based on the clinical impression. 2. Otherwise, routine annual screening mammography. This patient's information was entered into a reminder system with a target due date for their next mammogram. Electronically signed by: Williams Alexis MD 04/25/2024 02:58 PM AV
== END 2024-04-25 13:25 | disposition home or self-care (01) ==
LOC: HO.MAMMO 13:24
PROVIDERS: PCP Internal Medicine; Visit Provider Obstetrics & Gynecology
DX: N63.21 Unspecified lump in the left breast, upper outer quadrant (principal)
CPT/HCPCS: 76642; 77062; 77066

== ENCOUNTER → 2024-04-25 13:30 | Outpatient (BNV) | payer OTHER, SELFPAY | PROVIDERS: PCP Internal Medicine; Visit Provider Radiology Diagnostic Radiology | DX: N63.21 Unspecified lump in the left breast, upper outer quadrant (principal) | CPT/HCPCS: 76642; 77062; 77066 ==

== ENCOUNTER 2024-07-05 10:02 | Outpatient (AMB) | payer OTHER, SELFPAY ==
--- NOTE | 2024-07-05 10:13 | MHC.OFFVIS ---
Vital Signs 07/05/24 10:14 Height 5 ft 4 in Weight 205 lb BMI 35.2 BP 126/84 Blood Pressure Location Lt brachial Position Sitting Intake Visit Reasons: STD Testing Enlisted Aircrew/Aerial Observer/Gunner Required: No Allergies citalopram Allergy (Intermediate, Verified 03/21/24 12:36) nausea ibuprofen [From MOTRIN] Allergy (Intermediate, Verified 03/21/24 12:36) VOMITING Is last menstrual period known: Yes Last menstrual period: 05/22/24 Post menopausal: No Patient : No HPI HPI STD Testing: Details: Patient is here for an STD screen because her partner of 6 years cheated on her. They have broken up. She had gastric sleeve surgery this year and has lost over 100 lb. She feels really good. She does struggle with trying to drink enough water. She is been having some vaginal itching about 3 times in the last year ever since her surgery. She does wear panty liners. She was not protecting her for herself from because she thought she could not get because of the PCOS and she was not getting periods but now her periods have resumed since she had the surgery and started losing weight her last period was June 22 and it just ended. [facility] Medical History (Updated 07/05/24 @ 10:47 by Maribell Brooks CNM) Morbid obesity due to excess calories BMI 50.0-59.9, adult Obese Keratoconus of both eyes Pneumonia due to COVID-19 virus Asthma PCOS (polycystic ovarian syndrome) Surgical History (Updated 03/21/24 @ 12:29 by DANA Neumann) History of sleeve gastrectomy Hx laparoscopic cholecystectomy History of hysteroscopy History of appendectomy Corneal transplant status Family History Mother Hypertension Father Hypertension Social History (Updated 03/21/24 @ 12:42 by Lucille Carver MD) Housing: Apartment Alcohol intake: never Patient Tobacco Use Status: Former Tobacco user Tobacco use type: Cigarette Cigarettes Per Day: 3 e-Cigarette/Vaping Use: Never Used Second Hand Smoke Exposure: No service: No Current occupational status: unemployed Gender identity: Female Cognitive needs: No Hearing needs: No Vision needs: Yes Female Reproductive History Menstrual Age of Menarche: 8 Duration of menses: 3-5 days Date of last menstrual period: 05/22/24 control method: progesterone injection Total pregnancies: 0 History of abnormal pap smear: No History of STI: No Physical Exam Vital Signs: Last Vital Signs BP 126/84 07/05/24 10:14 BMI result Body Mass Index 35.2 Results Reviewed Results Reviewed: Name: Lula Lopez Age/Sex: 33/F Attending: Matias Jaimes MD : 1990 Submitted by: Matias Jaimes MD Copies to: Lucille Marrufo MD MR #: [id number] Status: DEP REF Collected: 02/17/23 Location: [facility] Received: 02/18/23 Interpretation Satisfactory for evaluation. Negative for intraepithelial lesion or malignancy. Fungal organisms consistent with Kaylene species. HPV mRNA E6/E7: NOT DETECTED This assay detects E6/E7 viral messenger RNA (mRNA) from 14 high-risk HPV types (16, 18, 31, 33, 35, 39, 45, 51, 52, 56, 58, 59, 66, 68) HPV testing performed by [facility], [place], [place]. See reference laboratory portion of the EMR for entire report. Clinical Information LMP: Unknown date Previous PAP test: 2018, Unknown findings Material Received ThinPrep-Cervical Copies To Lucille Marrufo MD [address] [place] [address] Dr. [address] [address] Matias Jaimes MD [address] [place] [address] Dr. Conner [address] [address] Electronically Signed By: Lisa Hubbard 03/01/23 2396 The Pap Test is a screening procedure with the inherent possibility of both false negative and false positive results. Results should be interpreted in the context of historic and current clinical findings. Reliability of the Pap Test is enhanced by performing the test on a regular repetitive basis. Patient: Lula Lopez Age/Sex: 33/F MR#: [id number] Page 1 of 1 Assessment & Plan Assessment & Plan (1) Screen for STD (sexually transmitted disease): Code(s): Z11.3 - Encounter for screening for infections with a predominantly sexual mode of transmission Category: Medical (2) PCOS (polycystic ovarian syndrome): Comment: Hirsutism/oligomenorrhea rule out PCOS Code(s): E28.2 - Polycystic ovarian syndrome Category: Medical (3) Morbid obesity due to excess calories: Comment: Is status post gastric sleeve surgery and has lost over 100 lb so far... Code(s): E66.01 - Morbid (severe) obesity due to excess calories Category: Medical (4) Yeast infection involving the vagina and surrounding area: Code(s): B37.31 - Acute candidiasis of vulva and vagina Category: Medical (5) control counseling: Code(s): Z30.09 - Encounter for other general counseling and advice on contraception Category: Medical Plan Testing done during the visit for gonorrhea chlamydia trichomoniasis as well as yeast and bacterial vaginosis and testing ordered for HIV hep B hep C and syphilis she is going to go to the lab now to get those done. Discussed control and the possibility of her getting which was always there though less likely it was never impossible. Discussed use of condoms at the very least and to be thinking about what she might want to use for control going forward until she is in the right place in her life to consider .. Discussed also her experience with her weight loss and her continued efforts in congratulated her on her continued hard work. Discussed the challenges of losing weight both with skin redundancy and changing self-image etc.. Also discussed menstrual care she has been wearing panty liners and uses pads for her periods she is very irritated externally where the pad and panty liners have been consistent with a yeast inflammation and she says it is very itchy I will treat her with Monistat cream. She denies having diabetes currently. Discussed allowing air to her vulva with cotton underwear and trying to refrain from pad use of any sort discussed use of Tampax or menstrual cups to aid with this and she is actually curious about them and may consider trying them. Discussed how to use tampons safely and comfortably. We will see her for her annual exam which she thought was just for Pap smear but is not she is not quite due for a Pap smear in fact however it will be an opportunity discuss again all of the issues involved with her PCOS and control and periods etc.,. RTC for annual, Labs. Orders: Orders Hepatitis B Surface Antigen Today B37.31 - Acute candidiasis of vulva and vagina, E28.2 - Polycystic ovarian syndrome, E66.01 - Morbid (severe) obesity due to excess calories, Z11.3 - Encounter for screening for infections with a predominantly sexual mode of transmission HIV Ab/Ag Today B37.31 - Acute candidiasis of vulva and vagina, E28.2 - Polycystic ovarian syndrome, E66.01 - Morbid (severe) obesity due to excess calories, Z11.3 - Encounter for screening for infections with a predominantly sexual mode of transmission Syphilis Screen Today B37.31 - Acute candidiasis of vulva and vagina, E28.2 - Polycystic ovarian syndrome, E66.01 - Morbid (severe) obesity due to excess calories, Z11.3 - Encounter for screening for infections with a predominantly sexual mode of transmission CT NG by PCR Today Z11.3 - Encounter for screening for infections with a predominantly sexual mode of transmission Hepatitis C Antibody Today B37.31 - Acute candidiasis of vulva and vagina, E28.2 - Polycystic ovarian syndrome, E66.01 - Morbid (severe) obesity due to excess calories, Z11.3 - Encounter for screening for infections with a predominantly sexual mode of transmission Bacterial Vaginosis Panel Today Z11.3 - Encounter for screening for infections with a predominantly sexual mode of transmission Medications: New miconazole nitrate 2% (Miconazole-7) Use p.r.n. for yeast infections 1 appful vaginal BEDTIME 7 days 45 grams 3RF Discontinued nabumetone Discontinued Reason: Patient no longer taking 750 mg PO BID 5 days 10 tabs 0RF Coding Level of Care Code Est Pt Level 3 (57410) Complex EM visit Add On G2211 Diagnoses Screen for STD (sexually transmitted disease) Z11.3 PCOS (polycystic ovarian syndrome) E28.2 Morbid obesity due to excess calories E66.01 Yeast infection involving the vagina and surrounding area B37.31 control counseling Z30.09 Time Spent (min) 30 Comment reviewed noted health concerns
[2024-07-05 10:14] VITALS: BP 126/84; BMI 35.2
--- OUTSIDE RECORDS SUMMARY | 2024-07-05 10:49 | XMS_ITS | Clinical Summary ---
Author Organization [facility] Address [address] [place] [address] Care Team Providers Care Stock Shipper Name Role Phone Kyler Trejo NP Primary Care Provider [phone] Source Comments PLEASE NOTE, if this patient is a minor, it may be UNLAWFUL to discuss sensitive information that is contained in these records (such as FAMILY PLANNING, MENTAL HEALTH or SUBSTANCE ABUSE) with the minor patient's parent or other person without the patient's specific authorization.[facility] Allergies Active Allergy Reactions Criticality Noted Date Comments Other Kirk-3s 03/22/2015 seafood Shrimp Hives 03/22/2015 Strawberries Rash 03/22/2015 Medications fluticasone (FLONASE) 50 mcg/actuation nasal sprayIndications: Rhinosinusitis Place 2 Sprays into the nostril(s) once daily. 16 g 1 6 Active albuterol sulfate hfa 90 mcg/actuation inhalerIndication s:Mild intermittent asthma without complication Inhale 2 Puffs into the lungs every 6 (six) hours as needed for shortness of breath. 8 g 3 6 Active beclomethasone (QVAR) 80 mcg/actuation inhalerIndication s:Mild intermittent asthma without complication Inhale 1 Puff into the lungs 2 (two) times daily. 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 Elijah Stone Right knee pain 03/22/2015 Mild intermittent asthma 03/22/2015 Hx of appendectomy 03/22/2015 Overview (03/22/2015): At age 9 Family History Medical History Relation Name Comments Arthritis Father Arthritis Mother Hypertension Mother Relation Name Status Comments Father Alive Mother Alive Social History Tobacco Use Types Packs/Day Years Used Date Smoking Tobacco: Every Day Cigarettes 0.2 10 Alcohol Use Standard Drinks/Week Comments No 0 (1 standard drink = 0.6 oz pur e alcohol) Social Connections Answer Date Recorded Social Connections and Isolation 0 01/30/2019 Financial Resource Strain Answer Date R ecorded Financial Resource Strain 0 2018 Stress Answer Date Recorded Stress 0 01/30/2019 Physical Activity Answer Date Recorded Physical Activity 0 01/30/2019 Food Insecurity Answer Date Recorded Food 0 01/30/2019 Transportation Needs Answer Date Record ed Transportation 0 01/30/2019 Housing Stability Answer Date Recorded Housing 0 01/30/2019 Safety and Environment Answer Date Arian rded Safety 0 01/30/2019 Utilities Answer Date Recorded Utilities 0 01/30/2019 Employment Answer Date Recorded Employment 0 01/30/2019 Comments Unknown Sex and Gender Information Value Date Recorded Sex Assigned at Not on file Legal Sex Female 9:37 AM PDT Gender Identity Not on file Sexual Orientation Not on file Last Filed Vital Signs Vital Sign Reading Time Taken Comments Blood Pressure 138/88 06/24/2016 11:27 AM EST Pulse 80 06/24/2016 11:27 AM EST Temperature 36.7 ??C (98 ??F) 06/24/2016 11:27 AM EST Respiratory Rate 22 06/24/2016 11:27 AM EST Oxygen Saturation - - Inhaled Oxygen Concentration - - Weight 139.3 kg (307 lb) 06/24/2016 11:40 AM EST Height 166 cm (5' 5.35 ) 01/11/2016 10:49 AM EDT Body Mass Index 50.54 01/11/2016 10:49 AM EDT Plan of Treatment Not on file Insurance [place] MEDICAID [facility] Care Teams Stock Shipper Relationship Specialty Start Date End Date Kyler Trejo NP [address] [place] [address] PCP - General 04/15/18
--- OUTSIDE RECORDS SUMMARY | 2024-07-05 10:49 | XMS_ITS | Clinical Summary ---
Author Organization [address] [place] [address] [place] [phone] Phone Care Team Providers Care Expense Clerk Name Role Phone Lucille Carver MD Primary Care Provider [phone] Allergies Active Allergy Reactions Criticality Noted Date Comments Pollen Extracts 03/09/2023 Medications Medication Sig Dispensed Refills Start Date End Date Status ALBUTEROL INHL Inhale into the lungs. Active medroxyprogesterone acetate (PROVERA ORAL) Take 10 mg by mouth. Active WHEAT DEXTRIN ORAL Take 4 g by mouth daily. 09/22/2023 Active cholecalciferol (VITAMIN D-3) 50 mcg (2,000 unit) tablet Take 1 Tablet by mouth daily. 04/01/2024 Active Active Problems Problem Noted Date Diagnosed Date Class 3 severe obesity with body mass index (BMI) of 50.0 to 59.9 in adult 04/20/2023 Encounters Date Type Department Care Team Description 05/03/2024 Telephone Bariatric Surgery - [address] [address] Trent Zelaya MD Advice Only (adamumetone) from Last 3 Months Social History Tobacco Use Types Packs/Day Years Used Date Smoking Tobacco: Never Assessed Sex and Gender Information Value Date Recorded Sex Assigned at Not on file Gender Identity Not on file Sexual Orientation Not on file Job Start Date Occupation Industry Not on file Not on file Not on file Last Filed Vital Signs Vital Sign Reading Time Taken Comments Blood Pressure 137/83 03/24/2024 8:00 AM EDT Pulse 74 03/24/2024 8:00 AM EDT Temperature - - Respiratory Rate - - Oxygen Saturation - - Inhaled Oxygen Concentration - - Weight 104 kg (230 lb) 03/24/2024 8:00 AM EDT Height 162.6 cm (5' 4 ) 03/24/2024 8:00 AM EDT Body Mass Index 39.48 03/24/2024 8:00 AM EDT Plan of Treatment Health Maintenance Due Date Last Done Comments DTaP,Tdap,and Td Vaccines (1 - Tdap) 01/07/2007 Hepatitis B Vaccines (1 of 3 - 19+ 3-dose series) 01/07/2007 Cervical Cancer Screening: P ap Smear 01/07/2009 Depression Screening 07/12/2023 HIV Screening 07/12/2023 Hepatitis C Screening 07/12/2023 Social Influencers of Health Screening 07/12/2023 COVID-19 Vaccine (2023-2 5 season) 2024 Influenza Vaccine (#1) 2024 Cholesterol Screening (Lipid Panel) 03/13/2028 03/13/2023 HIB Vaccines Aged Out No longer eligi ble based on patient's age to complete this topic HPV Vaccines Aged Out No longer eligi ble based on patient's age to complete this topic Hepatitis A Vaccines Aged Out No long er eligible based on patient's age to complete this topic IPV Vaccines Aged Out No longer eligi ble based on patient's age to complete this topic MMR Vaccines Aged Out No longer eligi ble based on patient's age to complete this topic Meningococcal ACWY Vaccine Aged Out N o longer eligible based on patient's age to complete this topic Pneumococcal Vaccine: Pediat rics (0 to 5 Years) and At-Risk Patients (6 to 64 Years) Aged Out No longer eligi ble based on patient's age to complete this topic RSV Immunization Patients Un juan jose 20 months Aged Out No longer eligible b ased on patient's age to complete this topic Varicella Vaccines Aged Out No longer eligible based on patient's age to complete this topic Procedures Procedure Name Priority Date/Time Associated Diagnosis Comments LIPID PANEL Routine 03/13/2023 from Last 3 Months or Most Recently Relevant to Health Maintenance Results * (ABNORMAL) Lipid panel (03/13/2023) LDL/HDL Ratio 6(A) 0 - 4 Triglycerides 127 0 - 150 mg/dL Cholesterol 128 0 - 200 mg/dL HDL 22(A) 40 mg/dL LDL Cholesterol 81 0 - 100 mg/dL Blood Venous blood specimen / Unknown Historical Provider LAB BLOOD ORDERAB LES from Last 3 Months or Most Recently Relevant to Health Maintenance Care Teams Expense Clerk Relationship Specialty Start Date End Date Lucille Carver MD [address] [place] [address] , [address] [facility] [place], [place] PCP - General 12/17/18
== END 2024-07-05 10:51 | disposition home or self-care (01) ==
PROVIDERS: PCP Internal Medicine; Visit Provider Advanced Practice Midwife
DX: Z11.3 Encounter for screening for infections with a predominantly sexual mode of transmission (principal); E28.2 Polycystic ovarian syndrome; E66.01 Morbid (severe) obesity due to excess calories; B37.31 Acute candidiasis of vulva and vagina; Z30.09 Encounter for other general counseling and advice on contraception
CPT/HCPCS: 99213; G2211

== ENCOUNTER 2024-07-05 10:02 | Outpatient (REF) | payer OTHER, SELFPAY ==
--- OUTSIDE RECORDS SUMMARY | 2024-07-05 12:05 | XMS_ITS | Clinical Summary ---
Author Organization [address] [place] [address] [place] [phone] Phone Care Team Providers Care Furniture Decals Inspector Name Role Phone Lucille Carver MD Primary Care Provider [phone] Allergies Active Allergy Reactions Criticality Noted Date [...] Team Description 05/03/2024 Telephone Bariatric Surgery - [address] [address] Trent Zelaya MD Advice Only [...] Recently Relevant to Health Maintenance Care Teams Furniture Decals Inspector Relationship Specialty Start Date End Date Lucille Carver MD [address] [place] [address] , [address] [facility]: [facility] [place], [place] PCP - General 12/17/18
--- OUTSIDE RECORDS SUMMARY | 2024-07-05 12:05 | XMS_ITS | Clinical Summary ---
Author Organization [facility] Address [address] [place] [address] Care Team Providers Care Science Instructor Name Role Phone Kyler Trejo NP Primary Care Provider [phone] Source Comments PLEASE NOTE, if this patient is a minor, it may be UNLAWFUL to discuss sensitive information that is contained in these records (such as FAMILY PLANNING, MENTAL HEALTH or SUBSTANCE ABUSE) with the minor patient's parent or other person without the patient's specific authorization.[facility] Allergies Active Allergy Reactions Criticality Noted Date Comments Other [place]-3s 03/22/2015 seafood Shrimp Hives 03/22/2015 Strawberries Rash [...] Plan of Treatment Not on file Insurance [place] MEDICAID [facility] Care Teams Science Instructor Relationship Specialty Start Date End Date Kyler Trejo NP [address] [place] [address] PCP - General 04/15/18
[2024-07-05 14:20] LABS: HBsAGNum1 0.43 S/CO (0.00-0.99); HIV AB/AG Nonreactive (Nonreactive); HIV Num 1 0.05 S/CO (0.00-0.99); Hepatitis B Surface Antigen Negative (Negative); ~HepC Num1 0.15 S/CO (0.00-0.79); ~Hepatitis C Antibody Nonreactive (Nonreactive)
[2024-07-05 14:26] LABS: Syphilis Screen Nonreactive (Nonreactive)
== END 2024-07-05 10:03 | disposition home or self-care (01) ==
LOC: HO.LNP 10:02
PROVIDERS: PCP Internal Medicine; Visit Provider Advanced Practice Midwife
DX: B37.31 Acute candidiasis of vulva and vagina (principal); Z11.3 Encounter for screening for infections with a predominantly sexual mode of transmission; E28.2 Polycystic ovarian syndrome; E66.01 Morbid (severe) obesity due to excess calories
CPT/HCPCS: 86780; 86803; 87340; 87389; 99212

== ENCOUNTER 2024-07-05 11:00 | Outpatient (REF) | payer OTHER, SELFPAY ==
[2024-07-06 06:08] LABS: CT PCR NOT DETECTED (Not Detect.); NG PCR NOT DETECTED (Not Detect.)
[2024-07-06 11:13] LABS: Bacterial Vaginosis PCR NEGATIVE (Negative); Candida Group PCR DETECTED (Not Detect); Candida glab krusei PCR NOT DETECTED (Not Detect); Trichomonas vaginalis PCR NOT DETECTED (Not Detect)
== END 2024-07-05 11:01 | disposition home or self-care (01) ==
LOC: HO.HHCL 11:00
PROVIDERS: Visit Provider Advanced Practice Midwife
DX: Z11.3 Encounter for screening for infections with a predominantly sexual mode of transmission (principal)
CPT/HCPCS: 81515; 87491; 87591

== ENCOUNTER 2024-07-06 16:26 | Outpatient (REF) | payer OTHER, SELFPAY ==
--- OUTSIDE RECORDS SUMMARY | 2024-07-06 17:52 | XMS_ITS | Clinical Summary ---
Author Organization [facility] Address [address] [place] [address] Care Team Providers Care Bank Worker Name Role Phone Kyler Trejo NP Primary Care Provider [phone] Source Comments PLEASE NOTE, if this patient is a minor, it may be UNLAWFUL to discuss sensitive information that is contained in these records (such as FAMILY PLANNING, MENTAL HEALTH or SUBSTANCE ABUSE) with the minor patient's parent or other person without the patient's specific authorization.[facility] Allergies Active Allergy Reactions Criticality Noted Date Comments Other [place]-3s 03/22/2015 seafood Shrimp Hives 03/22/2015 Strawberries Rash [...] Plan of Treatment Not on file Insurance [place] MEDICAID [facility] Care Teams Bank Worker Relationship Specialty Start Date End Date Kyler Trejo NP [address] [place] [address] PCP - General 04/15/18
--- OUTSIDE RECORDS SUMMARY | 2024-07-06 17:52 | XMS_ITS | Clinical Summary ---
Author Organization [address] [place] [address] [place] [phone] Phone Care Team Providers Care Assistant Professor Of Marine Biology Name Role Phone Lucille Carver MD Primary Care Provider [phone] Allergies Active Allergy Reactions Criticality Noted Date [...] Team Description 05/03/2024 Telephone Bariatric Surgery - [address] [address] Trent Zelaya MD Advice Only [...] Recently Relevant to Health Maintenance Care Teams Assistant Professor Of Marine Biology Relationship Specialty Start Date End Date Lucille Carver MD [address] [place] [address] , [address] [facility] D[facility]: [facility] [place], [place] PCP - General 12/17/18
[2024-07-07 18:24] LABS: CT PCR NOT DETECTED (Not Detect.); NG PCR NOT DETECTED (Not Detect.)
== END 2024-07-06 16:27 | disposition home or self-care (01) ==
LOC: HO.HHCL 16:26
PROVIDERS: Visit Provider Advanced Practice Midwife
DX: R30.0 Dysuria (principal)
CPT/HCPCS: 87491; 87591

== ENCOUNTER 2024-07-12 12:34 | Outpatient (AMB) | payer OTHER, SELFPAY ==
--- NOTE | 2024-07-12 12:41 | MHC.OFFVIS ---
Intake Visit Reasons: US Breast follow up/do not rhiannon Operator Electronic Warfare: Operator Electronic Warfare Present (Svetlana) Accompanied by: Self / Same As Patient Allergies citalopram Allergy (Intermediate, Verified 07/12/24 12:43) nausea ibuprofen [From MOTRIN] Allergy (Intermediate, Verified 07/12/24 12:43) VOMITING HPI Comments Details: Presenting for follow-up bilateral diagnostic mammogram and left breast ultrasound regarding left breast lump, Breast lump on left side at 2 o'clock position 2 cm from the nipple, the results came back as BI-RADS 2 PFSH Medical History Morbid obesity due to excess calories BMI 50.0-59.9, adult Obese Keratoconus of both eyes Pneumonia due to COVID-19 virus Asthma PCOS (polycystic ovarian syndrome) Surgical History History of sleeve gastrectomy Hx laparoscopic cholecystectomy History of hysteroscopy History of appendectomy Corneal transplant status Family History Mother Hypertension Father Hypertension Social History Housing: Apartment Alcohol intake: never Patient Tobacco Use Status: Former Tobacco user Tobacco use type: Cigarette Cigarettes Per Day: 3 e-Cigarette/Vaping Use: Never Used Second Hand Smoke Exposure: No service: No Current occupational status: unemployed Gender identity: Female Cognitive needs: No Hearing needs: No Vision needs: Yes Female Reproductive History Menstrual Age of Menarche: 8 Physical Exam Chest Chest palpation & inspection: normal inspection of the chest and normal palpation of entire chest wall Breast/axilla inspection: normal inspection of the breasts and normal inspection of the axillae Breast/axilla palpation: normal palpation of the breasts (No evidence of a lump felt in the left breast) Assessment & Plan Assessment & Plan (1) Breast lump on left side at 2 o'clock position: Comment: Resolved Code(s): N63.21 - Unspecified lump in the left breast, upper outer quadrant Category: Medical Plan: Discussed with the patient the finding left breast exam, no evidence of lump, resolved. In addition discussed with the patient the results the diagnostic mammogram and left breast ultrasound, BI-RADS 2. The sensitivity, specificity, false-positive false-negative rate of breast imaging the tech breast pathology including but not limited precancer and cancer were discussed with the patient. Instructions given the patient to call in case the patient feels recurrence of her left breast lump, breast nipple discharge or any other abnormalities. All questions answered, the patient verbalized understanding Coding Level of Care Code Est Pt Level 3 (67166) Diagnoses Breast lump on left side at 2 o'clock position N63.21
--- OUTSIDE RECORDS SUMMARY | 2024-07-12 13:05 | XMS_ITS | Clinical Summary ---
Author Organization [facility] Address [address] [place] [address] Care Team Providers Care Senior Java Programmer Name Role Phone Kyler Trejo NP Primary Care Provider [phone] Source Comments PLEASE NOTE, if this patient is a minor, it may be UNLAWFUL to discuss sensitive information that is contained in these records (such as FAMILY PLANNING, MENTAL HEALTH or SUBSTANCE ABUSE) with the minor patient's parent or other person without the patient's specific authorization.[facility] Allergies Active Allergy Reactions Criticality Noted Date Comments Other [place]-3s 03/22/2015 seafood Shrimp Hives 03/22/2015 Strawberries Rash [...] Plan of Treatment Not on file Insurance [place] MEDICAID [facility] Care Teams Senior Java Programmer Relationship Specialty Start Date End Date Kyler Trejo NP [address] [place] [address] PCP - General 04/15/18
--- OUTSIDE RECORDS SUMMARY | 2024-07-12 13:05 | XMS_ITS | Clinical Summary ---
Author Organization [address] [place] [address] [place] [phone] Phone Care Team Providers Care Sub Prior Name Role Phone Lucille Carver MD Primary Care Provider [phone] Allergies Active Allergy Reactions Criticality Noted Date [...] Team Description 05/03/2024 Telephone Bariatric Surgery - [address] [phone] Trent Zelaya MD Advice Only [...] Recently Relevant to Health Maintenance Care Teams Sub Prior Relationship Specialty Start Date End Date Lucille Carver MD [address] [place] [address] , [address] [facility] D[facility]A: [facility] [place], [place] PCP - General 12/17/18
== END 2024-07-12 14:10 | disposition home or self-care (01) ==
LOC: HO.HWS 12:34
PROVIDERS: PCP Internal Medicine; Visit Provider Obstetrics & Gynecology
DX: N63.21 Unspecified lump in the left breast, upper outer quadrant (principal)
CPT/HCPCS: 99213

== ENCOUNTER → 2024-07-12 12:34 | Outpatient (BNVA) | payer OTHER, SELFPAY | PROVIDERS: PCP Internal Medicine; Visit Provider Obstetrics & Gynecology | DX: N63.21 Unspecified lump in the left breast, upper outer quadrant (principal) | CPT/HCPCS: 99212 ==

== ENCOUNTER 2024-08-04 12:37 | Outpatient (REF) | payer OTHER, SELFPAY ==
--- OUTSIDE RECORDS SUMMARY | 2024-08-04 15:00 | XMS_ITS | Clinical Summary ---
Author Organization [facility] Address [address] [place] [address] Care Team Providers Care Director Correctional Agency Name Role Phone Kyler Trejo NP Primary Care Provider Source Comments PLEASE NOTE, if this patient is a minor, it may be UNLAWFUL to discuss sensitive information that is contained in these records (such as FAMILY PLANNING, MENTAL HEALTH or SUBSTANCE ABUSE) with the minor patient's parent or other person without the patient's specific authorization.[facility] Allergies Active Allergy Reactions Criticality Noted Date Comments Other Hampton-3s 03/22/2015 seafood Shrimp Hives 03/22/2015 Strawberries Rash [...] Plan of Treatment Not on file Insurance [place] MEDICAID [facility] Care Teams Director Correctional Agency Relationship Specialty Start Date End Date Kyler Trejo NP [address] [place] [address] PCP - General 04/15/18
--- OUTSIDE RECORDS SUMMARY | 2024-08-04 15:00 | XMS_ITS | Clinical Summary ---
Author Organization [address] [place] [address] Address [address] [place] [address] Phone Care Team Providers Care Automobile Service Station Manager Name Role Phone Lucille Carver MD Primary Care Provider [phone] Allergies Active Allergy Reactions Criticality Noted Date Comments Pollen Extracts 03/09/2023 Medications ALBUTEROL INHL Inhale into the lungs. Active medroxyprogester one acetate (PROVERA ORAL) Take 10 mg by mouth. Active WHEAT DEXTRIN ORAL Take 4 g by mouth daily. 09/22/2023 Active cholecalciferol (VITAMIN D-3) 50 mcg (2,000 unit) tablet Take 1 Tablet by mouth daily. 04/01/2024 Active Active Problems Problem Noted Date Diagnosed Date Class 3 severe obesity with body mass index (BMI) of 50.0 to 59.9 in adult 04/20/2023 Social History Tobacco Use Types Packs/Day Years Used Date Smoking Tobacco: Never Assessed Comments Unknown Sex and Gender Information Value Date Recorded Sex Assigned at Not on file Legal Sex Female 4:57 PM EST Gender Identity Not on file Sexual Orientation [...] 03/24/2024 8:00 AM EDT Plan of Treatment Upcoming Encounters Date Type Department Care Team (Late st Contact Info) Description 11/01/2024 1:00 PM EDT Office Visit Bariatric Surgery - [place] [address] [facility] [address] [place] [phone] Selma Eason PA [address] [facility] [address] [place] [address] Health Maintenance Due Date Last Done Comments DTaP,Tdap,and Td Vaccines (1 - Tdap) 01/07/2007 Hepatitis B Vaccines (1 of 3 - 19+ 3-dose series) 01/07/2007 Cervical Cancer Screening: P ap Smear 01/07/2009 Depression Screening 07/12/2023 HIV Screening 07/12/2023 Hepatitis C Screening 07/12/2023 Social Influencers of Health Screening 07/12/2023 COVID-19 Vaccine ( - 2023-2 5 season) 2024 Influenza Vaccine (#1) 2024 [...] patient's age to complete this topic Meningococcal B Vacine Aged Out No lo nger eligible based on patient's age to complete [...] 128 0 - 200 mg/dL HDL 22(A) >=40 mg/dL LDL Cholesterol 81 0 - 100 mg/dL Blood Venous blood specimen / Unknown us Historical Provider LAB BLOOD ORDERABLES Tawanna l Result from Last 3 Months or Most Recently Relevant to Health Maintenance Insurance [address] [place] [address] [employer] Care Teams Automobile Service Station Manager Relationship Specialty Start Date End Date Lucille Carver MD [address] [place] [address] , [address] [facility] D[facility] RONALD Knight PCP - General 12/17/18
[2024-08-04 15:20] LABS: MANUAL DIFF FLAG NO
[2024-08-04 15:38] LABS: Basophils Absolute Auto 0.1 X10*3/uL (0.0-0.2); Basophils Percent Auto 0.6 % (0-2); Eosinophils Absolute Auto 0.6 X10*3/uL (0.0-0.4); Eosinophils Percent Auto 6.5 % (0-4); Hematocrit 45.8 % (37.0-47.0); Hemoglobin 15.6 g/dl (12.0-16.0); Imm Gran Abs Auto 0.01 X10*3/uL (0.00-0.03); Imm Gran Pct Auto 0.1 % (0.0-0.4); Lymphocytes Absolute Auto 3.1 X10*3/uL (1.2-4.9); Lymphocytes Percent Auto 34.1 % (20-40); Mean Corpuscular HGB Conc 34.1 g/dl (31.0-35.0); Mean Corpuscular Hemoglobin 31.8 pg (27.0-33.0); Mean Corpuscular Volume 93.5 fL (80.0-98.0); Mean Platelet Volume 10.7 fL (9.4-12.3); Monocytes Absolute Auto 0.6 X10*3/uL (0.1-1.2); Monocytes Percent Auto 6.1 % (2-11); Neutrophils Absolute Auto 4.7 x10*3/uL (2.0-8.3); Neutrophils Percent Auto 52.6 % (45-73); Platelet Count 275 X10*3/uL (160-400); Red Cell Distribution Width 13.2 % (11.0-16.0)
[2024-08-04 16:09] LABS: Alanine Aminotransferase 15 U/L (0-31); Albumin Level 4.1 g/dL (3.5-5.0); Anion Gap 10 (12-20); Aspartate Amino Transferase 23 U/L (5-31); Bilirubin Total 0.6 mg/dL (0.0-1.0); Blood Urea Nitrogen 10 mg/dL (9-16); Calcium 9.7 mg/dL (8.4-10.2); Carbon Dioxide 29 mmol/L (22-29); Chloride 105 mmol/L (96-108); Cholesterol 123 mg/dL (<200); Estimated Glomerular Filt Rate > 60; Glucose Fasting 77 mg/dL (60-99); HDL Cholesterol 33 mg/dL (>40); LDL Cholesterol Calculated 70 mg/dL (<100); Potassium 4.2 mmol/L (3.3-5.1); Sodium 140 mmol/L (135-145); Total Protein 7.9 g/dL (6.5-8.0); Triglycerides 102 mg/dL (<150)
[2024-08-04 16:24] LABS: Thyroid Stimulating Hormone 0.71 uIU/mL (0.32-4.0); Vitamin D 25-OH Total 39.1 ng/mL (>30)
[2024-08-04 16:29] LABS: Alkaline Phosphatase 65 U/L (39-117)
[2024-08-04 16:34] LABS: Folate 3.4 ng/mL (> or = 4.0); Vitamin B12 355 pg/mL (200-900)
== END 2024-08-04 12:38 | disposition home or self-care (01) ==
LOC: HO.LAB 12:37
PROVIDERS: PCP Internal Medicine; Visit Provider Internal Medicine
DX: Z01.419 Encounter for gynecological examination (general) (routine) without abnormal findings (principal); E28.2 Polycystic ovarian syndrome; Z79.3 Long term (current) use of hormonal contraceptives; E66.01 Morbid (severe) obesity due to excess calories; E55.9 Vitamin D deficiency, unspecified; E53.8 Deficiency of other specified B group vitamins; E78.5 Hyperlipidemia, unspecified
CPT/HCPCS: 36415; 80053; 80061; 82306; 82607; 82746; 84443; 85025; 99395; 99459

== ENCOUNTER 2024-08-04 13:32 | Outpatient (AMB) | payer OTHER, SELFPAY ==
--- NOTE | 2024-08-04 13:34 | MHC.OFFVIS ---
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 Automotive Paint Technician Required: No Automotive Paint Technician Services: Automotive Paint Technician Present Information Interpreted: clinical only Clerical Warehouseman: Clerical Warehouseman Present Allergies citalopram Allergy (Intermediate, Verified 08/04/24 13:44) nausea ibuprofen [From MOTRIN] Allergy (Intermediate, Verified 08/04/24 13:44) VOMITING Medication List - Last Reconciled 08/04/24 by Maribell Brooks CNM albuterol sulfate 2.5 mg (3 mL) inhalation Q6H PRN 30 days cholecalciferol (vitamin D3) 50 mcg PO DAILY 90 days copper gluconate 2 mg PO DAILY fluticasone propionate 44 mcg/actuation (Flovent HFA) 1 puff inhalation BID 30 days medroxyprogesterone (Provera) 10 mg PO DAILY 10 days miconazole nitrate 2% (Miconazole-7) 1 appful vaginal BEDTIME 7 days adgegjsjdfhp-ypf-emdm-FA-vit K 45 mg iron- 800 mcg-120 mcg (Bariatric Multivitamins) caps PO nebulizers (AeroEclipse II Nebulizer) As directed Ventolin HFA 90 mcg/actuation (albuterol sulfate) 2 puffs inhalation Q6H PRN 30 days NS Is last menstrual period known: Yes Last menstrual period: 07/19/24 HPI 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 Also she came for an STI check a short while ago everything turned out fine that as well. She is not planning to be sexually active any time soon. She would use condoms. She had bariatric surgery in the last year and a half and does not need her what she was told about how long she should avoid route are visit today in revisiting this was in fact 18 months she was coming up around the time she will the doctor again. She has lost from 345 lb, to 194 today. She does feel good she is not doing so great with eating but she is doing okay with exercise and she does still struggle to drink enough water she went today for blood tests to check on her vitamin levels and they were unable to get veins in her hands, so they told her to drink water come back next. One thing she notices is that she is cold more often. She would be open when she could. She is not currently with anyone She was put on Provera sometime ago because she was not get at all she has been taking it every month for 10 days using cyclic the way she was told by Dr. Jaimes and has been getting periods with it. Last Pap was negative in 2022 and testing for STIs was negative just last month. She had [facility] Medical History Morbid obesity due to excess calories BMI 50.0-59.9, adult Obese Keratoconus of both eyes Pneumonia due to COVID-19 virus Asthma PCOS (polycystic ovarian syndrome) Surgical History History of sleeve gastrectomy Hx laparoscopic cholecystectomy History of hysteroscopy History of appendectomy Corneal transplant status Family History Mother Hypertension Father Hypertension Social History Housing: Apartment Alcohol intake: never Patient Tobacco Use Status: Former Tobacco user Tobacco use type: Cigarette Cigarettes Per Day: 3 e-Cigarette/Vaping Use: Never Used Second Hand Smoke Exposure: No service: No Current occupational status: unemployed Gender identity: Female Cognitive needs: No Hearing needs: No Vision needs: Yes Female Reproductive History Menstrual Age of Menarche: 8 Date of last menstrual period: 07/19/24 control method: pills Total pregnancies: 0 Date of last pap smear: 02/18/23 (negative) Physical Exam Vital Signs: Last Vital Signs BP 120/70 08/04/24 13:43 BMI result Body Mass Index 33.3 Const Other: Redundant tissue and skin noted Patient is wearing a tight underwire bra with abdominal support and skin is slightly pinched in the General: healthy appearing, comfortable, no acute distress, well developed and alert Nutritional Appearance: average body habitus Orientation/consciousness: patient oriented x3 Limitations: no limitations HEENT Head: Yes normocephalic Neck Neck: Yes normal visual inspection Chest Chest palpation & inspection: normal inspection of the chest Breast/axilla inspection: normal inspection of the breasts and normal inspection of the axillae Breast/axilla palpation: normal palpation of the breasts and normal palpation of the axillae Resp Effort & Inspection: normal respiratory effort GI Inspection: Yes normal to inspection, No Abdominal wall edema and No distended Palpation (GI): Soft to palpation and nontender Other: Redundant skin noted. Vagina has redundant mucosa and tissues well there is a dark chocolate 80 mucousy discharge consistent with end of menses patient states that her menses ended last. Discussed possibility that this is simply end of menses discharge that never came out and was pocketed in vaginal issue. Cervix appeared nulliparous pink smooth patient has tight tone with Kegel. Pubic arch feels low General: Yes bladder normal to palpation External Female Exam: normal external appearance and normal appearance of the urethra Speculum Exam - Vagina: normal appearance of the vagina, normal palpation and normal vaginal discharge Speculum Exam - Cervix: normal appearance of the cervix, normal palpation and nontender Bimanual exam- vagina & uterus: normal bimanual exam, normal palpation, uterine size normal, bladder normal to palpation, consistency normal, normal palpation, uterine mobility normal, uterine shape normal, No Cervical tenderness present, non-tender and no cervical motion tenderness Bimanual Exam- Adnexa, other: normal adnexae, no masses, normal and No adnexal tenderness Neuro General: patient oriented x3 Assessment & Plan Assessment & Plan (1) control counseling: Code(s): Z30.09 - Encounter for other general counseling and advice on contraception Category: Medical (2) PCOS (polycystic ovarian syndrome): Comment: Hirsutism/oligomenorrhea rule out PCOS Code(s): E28.2 - Polycystic ovarian syndrome Category: Medical (3) Oligomenorrhea: Code(s): N91.5 - Oligomenorrhea, unspecified Category: Medical (4) Well woman exam with routine gynecological exam: Code(s): Z01.419 - Encounter for gynecological examination (general) (routine) without abnormal findings Category: Medical (5) Cervical cancer screening: Code(s): Z12.4 - Encounter for screening for malignant neoplasm of cervix Category: Medical Plan -----Discussed in this visit the following: healthy balanced diet, regular and consistent exercise, getting recommended health screens, doing the best she can for her particular health concerns, kegel exercises, pap smear screening and followup recommendations, mammography screening and SBE, normal changes in cycles in her life stage--- . Discussed her history the PCOS and amenorrhea. She said she was put on Provera to take monthly for [address] Jaimes and she was wondering if she is still needed to take it reviewed her past history of amenorrhea. She has lost 131 lb so far and now currently at weight 194 patient tells me that when she was 194 in the past she was getting regular few. Discussed that she may want to stay on the Provera for a little while longer but if she goes off of it and he has whether not she has gets a period that maybe acceptable. The important thing would be to restarted if she does not get a regular period The other very important issue is adhering to recommendations to not get for the prescribed amount following bariatric surgery weight loss which she is still working. She is still working on hope avoiding more water her diet as well as not able find a vein with 4 vena punctures when she went for blood drawn today Discuss it if she did go off the Provera pay attention to her menses in the she did not get menses monthly without it she would start and also that she be very proactive about a method control. Discussed condoms at recommend she have a discussion primary care provider and also the bariatric surgeon about childbearing. Pap smear not done as not necessary STIs screen not done as patient has not resumed sexual activity since her last screening. I congratulated her on her hard work and weight loss. Timeframe/Date Comment RTC 1 year Coding Level of Care Code Est Pt Prev Care 18-39y([id number]) Diagnoses control counseling Z30.09 PCOS (polycystic ovarian syndrome) E28.2 Oligomenorrhea N91.5 Well woman exam with routine gynecological exam Z01.419 Cervical cancer screening Z12.4
[2024-08-04 13:43] VITALS: BP 120/70; BMI 33.3
--- OUTSIDE RECORDS SUMMARY | 2024-08-04 16:16 | XMS_ITS | Clinical Summary ---
Author Organization [address] [place] [address] Address [address] [place] [address] Phone Care Team Providers Care Auth Specialist Name Role Phone Lucille Carver MD Primary Care Provider [phone] Allergies Active Allergy Reactions Criticality Noted Date [...] PM EDT Office Visit Bariatric Surgery - [place] [address] [facility] [address] [place] [phone] Selma Eason PA [address] [facility] [address] [place] [address] Health Maintenance Due Date Last Done Comments [...] Most Recently Relevant to Health Maintenance [place] [address] [place] [address] [employer] Care Teams Auth Specialist Relationship Specialty Start Date End Date Lucille Carver MD [address] [place] [address] , [address] [facility] D/B/A: [facility] RONALD Knight PCP - General 12/17/18
--- OUTSIDE RECORDS SUMMARY | 2024-08-04 16:16 | XMS_ITS | Clinical Summary ---
Author Organization [facility] Address [address] [place] [address] Care Team Providers Care Anode Worker Name Role Phone Kyler Trejo NP Primary Care Provider [phone] Source Comments PLEASE NOTE, if this patient is a minor, it may be UNLAWFUL to discuss sensitive information that is contained in these records (such as FAMILY PLANNING, MENTAL HEALTH or SUBSTANCE ABUSE) with the minor patient's parent or other person without the patient's specific authorization.[facility] Allergies Active Allergy Reactions Criticality Noted Date Comments Other [place]-3s 03/22/2015 seafood Shrimp Hives 03/22/2015 Strawberries Rash [...] Plan of Treatment Not on file Insurance [place] MEDICAID [facility] Care Teams Anode Worker Relationship Specialty Start Date End Date Kyler Trejo NP [address] [place] [address] PCP - General 04/15/18
== END 2024-08-04 15:06 | disposition home or self-care (01) ==
PROVIDERS: PCP Internal Medicine; Visit Provider Advanced Practice Midwife
DX: Z01.419 Encounter for gynecological examination (general) (routine) without abnormal findings (principal); Z30.09 Encounter for other general counseling and advice on contraception; E28.2 Polycystic ovarian syndrome; Z12.4 Encounter for screening for malignant neoplasm of cervix
CPT/HCPCS: 99395; 99459

== ENCOUNTER 2025-02-14 08:32 | Outpatient (REF) | payer OTHER, SELFPAY ==
--- OUTSIDE RECORDS SUMMARY | 2025-02-14 09:34 | XMS_ITS | Encounter Summary ---
Author Organization [facility] Address [address] [place] [address] [place] [phone] Phone Care Team Providers Care Associate Dean Name Role Phone Lucille Marrufo MD Primary Care Provid er Encounter Details Date Type Department Care Team (Late st Contact Info) Description 08/17/2017 Procedure Pass [facility] LW PERIOP DEPT [address] [place] [address] Social History Tobacco Use Types Packs/Day Years Used Date Smoking Tobacco: Some Days Smokeless Tobacco: Never Alcohol Use Standard Drinks/Week Comments No 0 (1 standard drink = 0.6 oz pur e alcohol) Comments Unknown Sex and Gender Information Value Date Recorded Sex Assigned at Not on file Legal Sex Female 10:20 AM EST Gender Identity Not on file Sexual Orientation Not on file documented as of this encounter Plan of Treatment Not on file documented as of this encounter Visit Diagnoses Not on filedocumented in this encounter Care Teams Associate Dean Relationship Specialty Start Date End Date Lucille Marrufo MD [address] [place] [address] PCP - General Internal Medicine 05/11/17 documented as of this encounter Additional Source Comments The information contained in this document represents components of the legal health record. It is not the complete legal health record.[facility]
--- OUTSIDE RECORDS SUMMARY | 2025-02-14 09:34 | XMS_ITS | Clinical Summary ---
Author Organization [facility] Address [address] [place] [address] Phone Care Team Providers Care Caustic Purification Operator Name Role Phone Lucille Marrufo MD Primary Care Provid er Allergies Active Allergy Reactions Criticality Noted Date Comments Ibuprofen Other (See Comments) High 06/10/2017 Vomiting Medications albuterol (ACCUNEB) 0.63 mg/3 mL nebulizer solution Take 1 ampule by nebulization continuous prn for wheezing. Active prednisoLONE acetate (PRED FORTE) 1 % ophthalmic suspension Place 1 drop into the left eye 4 (four) times a day. 5 mL 1 8 Active Additional Information Patient taking differently:1 drop Left Eye3 times daily, Reported on 11/09/2017 erythromycin (ROMYCIN) ophthalmic ointment PLACE 1/2 INCH RIBBON INTO THE LEFT EYE 4 (FOUR) TIMES A DAY. 3.5 g 8 Active Additional Information Patient taking differently: PLACE 1/2 INCH RIBBON INTO THE LEFT EYE at night, Reported on 11/09/2017 erythromycin (ROMYCIN) ophthalmic ointmentIndicat ions:Keratoconu s of both eyes Place into each eye nightly. 3.5 g 3 8 Active Active Problems Problem Noted Date Diagnosed Date Edema of left eyelid 08/19/2017 Keratoconus of both eyes 06/09/2017 Family History Medical History Relation Comments Diabetes Maternal Grandmother Cataracts Mother Hypertension Mother Relation Status Comments Maternal Grandmother Mother Social History Tobacco Use Types Packs/Day Years Used Date Smoking Tobacco: Some Days Smokeless Tobacco: Never Alcohol Use Standard Drinks/Week Comments No 0 (1 standard drink = 0.6 oz pur e alcohol) Education Answer Date Recorded Are you interested in more education? Not on angle e 10/03/2022 Are you concerned about learning? Not on file 10/03/2022 No 10/03/2022 No 10/03/2022 Digital Access Answer Date Recorded No 11/03/2022 No 11/03/2022 No 11/03/2022 Reliable internet access at home? Not on file 11/03/2022 Device with a working camera? Not on file Comments Unknown Sex and Gender Information Value Date Recorded Sex Assigned at Not on file Legal Sex Female 10:20 AM EST Gender Identity Not on file Sexual Orientation Not on file Last Filed Vital Signs Vital Sign Reading Time Taken Comments Blood Pressure 151/99 08/17/2017 2:32 PM EDT Pulse 78 08/17/2017 2:32 PM EDT Temperature 36.4 C (97.6 F) 08/17/2017 2:22 PM EDT Respiratory Rate 20 08/17/2017 2:32 PM EDT Oxygen Saturation 97% 08/17/2017 2:32 PM EDT Inhaled Oxygen Concentration 6% 08/17/2017 1 2:40 PM EDT Weight 102.1 kg (225 lb) 08/17/2017 11:06 AM EDT Height 165.1 cm (5' 5 ) 08/17/2017 11:06 AM EDT Body Mass Index 37.44 08/17/2017 11:06 AM EDT Plan of Treatment Health Maintenance Due Date Last Done Comments DEPRESSION SCREENING 2000 SMOKING Hx and SMOKELESS TOBACCO SCREENING 01/07/2001 HEPATITIS C SCREENING 01/07/2006 HIV ONE-TIME SCREENING (18-6 5 YEARS) 01/07/2006 PNEUMOCOCCAL VACCINES (0-49 years) (1 of 2 - PCV) 01/07/2007 PAP SMEAR 01/07/2009 INFLUENZA VACCINE (#1) 2025 8, 06/24/2016 COVID-19 VACCINE (3 - 2024-2 6 season) 2025 10/27/2020, 09/29/2020 Adult Td,Tdap Booster 12/03/2027 12/02/2017 HEPATITIS A VACCINES Aged Out No long er eligible based on patient's age to complete this topic HIB VACCINES Aged Out No longer eligi ble based on patient's age to complete this topic MENINGOCOCCAL VACCINES (ACWY) Aged Out No longer eligible based on patient's age to complete this topic MENINGOCOCCAL VACCINES (B) Aged Out N o longer eligible based on patient's age to complete this topic Medical Devices Implanted Type Area Carousel Attendant Device Identifier Shelf Expiration Date Model / Serial / Lot Tissue Corneal - [id number] Implanted:Qty: 1 on 08/17/2017 by Alicia Hair MD at [address] Left: Eye [employer] 08/27/2017 / [id number] -RCN / [place] [address] [place] [address] [place] [address] [place] [address] [place] [address] [place] [address] ACO Advance Directives For more information, please contact: [phone] (9AM - 5PM Lucila/[facility], Thursday-Thursday) Documents on File Type Date Recorded Patient Step Down Nurse Expl anation Healthcare Proxy 08/17/2017 3:11 PM * Full Code (Presumed) (Latest Code Status on File) Date Activated Date Inactivated Comments 08/17/2017 10:45 AM 08/17/2017 4:46 PM Care Teams Caustic Purification Operator Relationship Specialty Start Date End Date Lucille Marrufo MD [address] [place] [address] PCP - General Internal Medicine 05/11/17 Additional Source Comments The information contained in this document represents components of the legal health record. It is not the complete legal health record.[facility]
--- OUTSIDE RECORDS SUMMARY | 2025-02-14 09:34 | XMS_ITS | Encounter Summary ---
Author Organization [facility] Address [address] [place] [address] Phone Care Team Providers Care Elevator Constructor Electric Name Role Phone Lucille Marrufo MD Primary Care Provid er Encounter Details Date Type Department Care Team (Late st Contact Info) Description 08/12/2017 Prep for Surgery [facility] [address] [address] Vickie Moralez MD [address] [place] [id number] Social History Tobacco Use Types Packs/Day Years Used Date Smoking Tobacco: Some Days Comments Unknown Sex and Gender Information Value Date Recorded Sex Assigned at Not on file Legal Sex Female 10:20 AM EST Gender Identity Not on file Sexual Orientation Not on file documented as of this encounter H&P Notes * Vickie Moralez MD - 08/12/2017 5:48 PM EST 27 yo ?? #acute corneal hydrops OS New Pt denies eye rubbing Advanced MIRIAM ?? -discussed options vs observation vs PKP. -RBA of the procedure reviewed and include but not limited to infection, plan for PKP ?? -add mehdi yaneth QID ?? -change lotemax to pred forte OS QID ?? -add cyclogyl TID ?? kmax 61.0/82.5 previously ? s/p CXL OU 06/09/17 ?? Mild haze OD -continue lotemax OD BID x 1 week QD x 1 week -art tears 2-3 x/day documented in this encounter Plan of Treatment Not on file documented as of this encounter Visit Diagnoses Not on filedocumented in this encounter Care Teams Elevator Constructor Electric Relationship Specialty Start Date End Date Lucille Marrufo MD [address] [place] [address] PCP - General Internal Medicine 05/11/17 documented as of this encounter Additional Source Comments The information contained in this document represents components of the legal health record. It is not the complete legal health record.[facility]
--- OUTSIDE RECORDS SUMMARY | 2025-02-14 09:34 | XMS_ITS | Encounter Summary ---
Author Organization [facility] Address [address] [place] [address] [place] [address] Phone Care Team Providers Care Lace And Textiles Restorer Name Role Phone Lucille Marrufo MD Primary Care Provid er Encounter Details Date Type Department Care Team (Late st Contact Info) Description 08/17/2017 Procedure Pass [facility] LW PERIOP DEPT [address] [place] [address] Social History Tobacco Use Types Packs/Day Years [...] on filedocumented in this encounter Care Teams Lace And Textiles Restorer Relationship Specialty Start Date End Date Lucille Marrufo MD [address] [place] [address] PCP - General Internal Medicine 05/11/17 documented as of this encounter Additional Source Comments The information contained in this document represents components of the legal health record. It is not the complete legal health record.[facility]
--- OUTSIDE RECORDS SUMMARY | 2025-02-14 09:35 | XMS_ITS | Clinical Summary ---
Author Organization [facility] Address [address] [place] [address] Care Team Providers Care Sander Portable Machine Name Role Phone Kyler Trejo NP Primary Care Provider [phone] Source Comments PLEASE NOTE, if this patient is a minor, it may be UNLAWFUL to discuss sensitive information that is contained in these records (such as FAMILY PLANNING, MENTAL HEALTH or SUBSTANCE ABUSE) with the minor patient's parent or other person without the patient's specific authorization.[facility] Allergies Active Allergy Reactions Criticality Noted Date Comments Other [place]-3s 03/22/2015 seafood Shrimp Hives 03/22/2015 Strawberries Rash 03/22/2015 Medications fluticasone (FLONASE) 50 mcg/actuation nasal sprayIndications: Rhinosinusitis Place 2 Sprays into the nostril(s) once daily. 16 g 1 6 Active albuterol sulfate hfa 90 mcg/actuation inhalerIndication s:Mild intermittent asthma without complication ([facility]) Inhale 2 Puffs into the lungs every 6 (six) hours as needed for shortness of breath. 8 g 3 6 Active beclomethasone (QVAR) 80 mcg/actuation inhalerIndication s:Mild intermittent asthma without complication ([facility]-HCC) Inhale 1 Puff into the lungs 2 [...] Right knee pain 03/22/2015 Mild intermittent asthma ([facility]) 03/22/2015 Hx of appendectomy 03/22/2015 Overview (03/22/2015): [...] 80 06/24/2016 11:27 AM EST Temperature 36.7 C (98 F) 06/24/2016 11:27 AM EST Respiratory Rate 22 06/24/2016 11:27 AM EST Oxygen Saturation - - Inhaled Oxygen Concentration - - Weight 139.3 kg (307 lb) 06/24/2016 11:40 AM EST Height 166 cm (5' 5.35 ) 01/11/2016 10:49 AM EDT Body Mass Index 50.54 01/11/2016 10:49 AM EDT Plan of Treatment Not on file Insurance [place] [facility] Care Teams Sander Portable Machine Relationship Specialty Start Date End Date Kyler Trejo NP [address] [place] [address] PCP - General 04/15/18
--- OUTSIDE RECORDS SUMMARY | 2025-02-14 09:35 | XMS_ITS | Clinical Summary ---
Author Organization [address] [place] [address] [place] [phone] Phone Care Team Providers Care Peoplesoft Hcm Consultant Name Role Phone Lucille Carver MD Primary Care Provider Allergies Active Allergy Reactions Criticality Noted Date [...] (BMI) of 50.0 to 59.9 in adult ([facility] V24, [facility] V28) 04/20/2023 Social History Tobacco Use Types Packs/Day [...] Care Team (Late st Contact Info) Description 02/16/2025 8:15 AM EDT Office Visit B[facility] - [facility] [address] [place] [address] Selma Eason, LIANA [facility] [place] [address] Health Maintenance Due Date Last Done Comments DTaP,Tdap,and Td Vaccines (1 - Tdap) 01/07/2007 Hepatitis B Vaccines (1 of 3 - 19+ 3-dose series) 01/07/2007 Cervical Cancer Screening: P ap Smear 01/07/2009 HIV Screening 07/12/2023 Hepatitis C Screening 07/12/2023 Social Influencers of Health Screening 07/12/2023 Depression Screening 06/08/2024 COVID-19 Vaccine ( - 2023-2 5 season) 2025 Influenza Vaccine (#1) 2025 Cholesterol Screening (Lipid Panel) 03/13/2028 03/13/2023 HIB [...] age to complete this topic Meningococcal B Vaccine Aged Out No l onger eligible based on patient's age to complete this topic Pneumococcal Vaccine: Pediat rics (0 to 5 Years) and At-Risk Patients (6 to 49 Years) Aged Out No longer eligi ble [...] mg/dL Blood Venous blood specimen / Unknown [facility] Provider LAB BLOOD ORDERABLES Tawanna l Result from Last 3 Months or Most Recently Relevant to Health Maintenance Insurance [facility] Care Teams Peoplesoft Hcm Consultant Relationship Specialty Start Date End Date Lucille Carver MD [address] [place] [address] , [address] [facility] RONALD Knight PCP - General 12/17/18
[2025-02-17 18:03] LABS: TS Negative Control Passed; TS Panel A 0; TS Panel B 0; TS Positive Control Passed; TSpotTB Negative (Negative)
== END 2025-02-14 08:33 | disposition home or self-care (01) ==
LOC: HO.LAB 08:32
PROVIDERS: PCP Internal Medicine; Visit Provider Internal Medicine
DX: Z11.1 Encounter for screening for respiratory tuberculosis (principal)
CPT/HCPCS: 36415; 86481

== ENCOUNTER 2025-02-24 09:58 | Emergency (ER) | payer OTHER, SELFPAY ==
--- NOTE | ~2025-02-24 | XR_ITS ---
EXAMINATION: XR ABDOMEN 1 VIEW (KUB) HISTORY: pain, constipation COMPARISON: There are no prior studies available for comparison. FINDINGS: Two supine views of the abdomen are submitted. The bowel gas pattern is unremarkable, without evidence of mechanical obstruction. There is moderate stool in the ascending and transverse colon. There are surgical clips in the right upper quadrant. Sutures is seen in the left upper quadrant. No abnormal calcifications are identified. There are no abnormal soft tissue masses. The bones are intact. XR/XR KUB IMPRESSION: Moderate stool in the ascending and transverse colon. Electronically signed by: Carlos Muniz MD 02/24/2025 10:47 AM EDT
[2025-02-24 10:01] VITALS: BP 140/82; PULSE 100; RESP 20; TEMP 36.9; O2SAT 98; BMI 32.8
--- NOTE | 2025-02-24 10:01 | ED_ITS ---
HPI - General Adult General Chief complaint: Abdominal Pain Stated complaint: Diff Bowel Movements Time Seen by Provider: 02/24/25 11:07 Source: patient, RN notes reviewed and old records reviewed Mode of arrival: ambulatory Limitations: no limitations History of Present Illness ED Provider: Ana SHAY narrative: Patient is a 35-year-old female with history of gastric bypass, PCOS, HTN, cholecystectomy presenting to the emergency department with complaint of constipation for the past month. Complains of mild nausea but denies vomiting. Also reports history of hemorrhoids and has had some bright red rectal bleeding with bowel movements. Has tried Dulcolax with little relief. Has also been using topical lidocaine and nitro paste on her hemorrhoids that her sister gave her. Today used an OTC enema and states that only water and small blood clots came out, still no BM. States she was having significant pain while trying to have BM this morning and had syncopal episode. Denies fall to floor or head strike. Denies fevers. Denies chest pain, palpitations or dyspnea. MD complaint: constipation, syncope Onset (ago): month(s) Related Data Home Medications ?Medication ?Instructions ?Recorded ?Confirmed [id number] 45 mg-folic cap PO 07/05/24 acid 800 mcg-vit K 120 mcg capsule (Bariatric Multivitamins) copper gluconate 2 mg tablet 2 mg PO DAILY 08/04/24 Previous Rx's ?Medication ?Instructions ?Recorded fluticasone propionate 44 1 puff inhalation BID 30 day s 01/14/23 mcg/actuation HFA aerosol inhaler #10.6 grams (Flovent HFA) nebulizers (AeroEclipse II #1 ea 07/20/23 Nebulizer) albuterol sulfate 2.5 mg/3 mL 2.5 mg (3 mL) inhalation Q6H PRN 08/07/23 (0.083 %) solution for nebulization bronchospasm 30 da ys #75 mL Ventolin HFA 90 mcg/actuation 2 puff inhalation Q6H TN N 10/24/23 aerosol inhaler (albuterol sulfate) shortness of breat h or wheezing 30 days #8 grams miconazole nitrate 2 % vaginal 1 appful vaginal BEDTIM E 7 days 07/05/24 cream (Miconazole-7) #45 grams cholecalciferol (vitamin D3) 50 50 mcg PO DAILY 90 day s #90 caps 11/03/24 mcg (2,000 unit) capsule medroxyprogesterone 10 mg tablet 10 mg PO DAILY 10 day s #30 tabs 12/21/24 (Provera) folic acid 1 mg tablet 1 mg PO DAILY 90 days #90 ta bs 01/27/25 docusate sodium 100 mg capsule 200 mg (2 x 100 mg) PO BID #14 caps 02/24/25 polyethylene glycol 3350 17 17 g PO DAILY PRN constipa tion 02/24/25 gram/dose oral powder #119 grams Allergies Allergy/AdvReac Type Severity Reaction Status Date / Time citalopram Allergy Intermediate nausea Verified 02/24/25 10:04 ibuprofen (From MOTRIN) Allergy Intermediate VOMITING Verified 02/24/25 10:04 Review of Systems 2 Review of Systems: As per HPI Yes all other systems are reviewed and are negative Constitutional: Constitutional: Reports as per HPI PMFSH Past Medical History Medical History Morbid obesity due to excess calories BMI 50.0-59.9, adult Obese Keratoconus of both eyes Pneumonia due to COVID-19 virus Asthma PCOS (polycystic ovarian syndrome) Surgical History History of sleeve gastrectomy Hx laparoscopic cholecystectomy History of hysteroscopy History of appendectomy Corneal transplant status Family History Family History Mother Hypertension Father Hypertension Social History Social History Housing: Apartment Alcohol intake: never Patient Tobacco Use Status: Former Tobacco user Tobacco use type: Cigarette Cigarettes Per Day: 3 e-Cigarette/Vaping Use: Never Used Second Hand Smoke Exposure: No service: No Current occupational status: unemployed Gender identity: Female Cognitive needs: No Hearing needs: No Vision needs: Yes Physical Exam ED Vital Signs: Vital Signs - 24 hr 02/24/25 10:01 Temperature 98.4 F Pulse Rate 100 Respiratory Rate 20 Blood Pressure 140/82 H Pulse Oximetry 98 Oxygen Delivery Method Room Air BMI result Body Mass Index 32.8 Vital signs have been reviewed and appear to be correct. Blood pressure normal. Heart rate normal. Respiratory rate normal. Temperature normal. Oxygen saturation normal. Const General: cooperative, healthy appearing and no acute distress Orientation/consciousness: oriented to person, oriented to place, oriented to time and patient oriented x3 Limitations: no limitations HENMT Head: Yes normocephalic and Yes atraumatic Ears: external ears normal General nose exam: Normal external nose present Face and sinus: Yes face symmetric Mouth: oropharynx normal and moist mucous membranes Throat: Yes uvula midline Eyes Pupils: Equal, round and reactive pupils present Neck Neck: Yes normal visual inspection and Yes supple Resp Effort & Inspection: normal respiratory effort and able to speak in complete sentences Auscultation: clear to auscultation bilaterally Cardio Rate: regular rate Rhythm: regular rhythm Heart sounds: S1 normal heart sound present and S2 normal heart sound present GI Inspection: Yes normal to inspection and Yes scar (several small surgical scars ) Palpation (GI): Soft to palpation and nontender Auscultation: normoactive bowel sounds General: Yes no CVA tenderness Back/Spine/Pelvis Back: no CVA tenderness Skin General skin exam: elasticity normal and turgor normal Neuro General: oriented to person, oriented to place, oriented to time, patient oriented x3, moves all extremities, no focal motor deficits and CN's II-XI intact bilaterally Cranial nerves: Yes Equal, round and reactive pupils present Cognition (Neuro): normal cognition Extrem General: Yes full ROM, Yes no pedal edema and Yes no calf tenderness Psych Mental Status: mental status grossly normal Affect: normal affect Thought process: Normal thought process present Course Course Course Narrative: RME, this is a rapid medical exam performed by Tomasz Law please refer to primary provider for complete H&P- 35-year-old female presents for evaluation of abdominal pain and constipation. She reports she has had in his unsure about 1 month ago. She reports that she use an enema this morning and was trying to use the bathroom when she had severe abdominal and rectal pain causing her to pass out. Plan for labs, EKG due to syncope, KUB Medications Administered Discontinued Medications Generic Name Dose Route Start Last Admin Trade Name Freq PRN Reason Stop Dose Admin Acetaminophen 975 mg 02/24/25 11:30 02/24/25 12:08 Acetaminophen 325 Mg Tablet PO 02/24/25 11:31 975 mg ONCE ONE Administration Ketorolac Tromethamine 30 mg 02/24/25 11:17 02/24/25 11:39 Ketorolac Tromethamine 30 Mg/Ml Vial IM 02/24/25 11:18 Not Given ONCE ONE Magnesium Citrate 300 ml 02/24/25 11:17 02/24/25 12:54 Magnesium Citrate 300 Ml Solution PO 02/24/25 11:18 300 ml ONCE ONE Administration Oxycodone HCl 5 mg 02/24/25 11:51 02/24/25 12:08 Oxycodone Hcl Immed Release 5 Mg Tablet PO 02/24/25 11:52 5 mg ONCE ONE Administration Medical Decision Making Medical Decision Making [facility] Narrative: Patient is a 35-year-old female with history of gastric bypass, PCOS, HTN, cholecystectomy presenting to the emergency department with complaint of constipation for the past month. On exam patient is awake, A+Ox3, VS WNL, afebrile, normal neurological exam without focal deficits, physical exam findings as above. Given reported symptoms and physical exam findings, initial differential includes but is not limited to constipation, hemorrhoids, vasovagal syncope. Labs unremarkable, negative troponin. Unlikely PE. X-ray abdomen notable for moderate stool burden without evidence of obstruction. My interpretation is in agreement with the radiologist's interpretation. Abdomen in soft and nontender. Discussed options with the patient including magnesium citrate and soapsuds enema. Patient initially declining magnesium citrate as she states she is unsure she will be able to drink that volume of fluid. Patient also hesitant to have soapsuds enema due to pain. Oxycodone ordered. Patient ultimately agreeable to soapsuds enema after taking Mag citrate without bowel movement in the ED. Able to have a BM after the enema here. Will discharge home on colace and miralax. Advised follow up with PCP and bariatric surgeon. Return precautions discussed. Patient verbalized understanding of and agreement with plan. Differential Diagnosis Differential Diagnoses: The differential diagnosis associated with the presentation includes as per [facility] Admission/Observation Consideration of admission/observation: Escalation of care including admission/observation considered Patient would have been admitted to the hospital and transferred to appropriate facility had their clinical presentation warranted hospital admission. Lab Data [facility] Lab Attestation statement: I reviewed the patient's lab results. as per [facility] 02/24/25 10:26 09/19/25 10:26 Labs: Lab Results 02/24/25 Range/Units 10:26 WBC 11.4 H (4.8-10.8) X10*3/uL RBC 4.49 (4.20-5.50) X10*6/uL Hgb 14.2 (12.0-16.0) g/dl Hct 39.2 (37.0-47.0) % MCV 87.3 (80.0-98.0) fL MCH 31.6 (27.0-33.0) pg MCHC 36.2 H (31.0-35.0) g/dl RDW 13.0 (11.0-16.0) % Plt Count 297 (160-400) X10*3/uL MPV 10.0 (9.4-12.3) fL Immature Gran % (Auto) 0.4 (0.0-0.4) % Neut % (Auto) 60.9 (45-73) % Lymph % (Auto) 26.2 (20-40) % Towns % (Auto) 8.0 (2-11) % Eos % (Auto) 4.0 (0-4) % Baso % (Auto) 0.5 (0-2) % Lymph # (Auto) 3.0 (1.2-4.9) X10*3/uL Towns # (Auto) 0.9 (0.1-1.2) X10*3/uL Eos # (Auto) 0.5 H (0.0-0.4) X10*3/uL Baso # (Auto) 0.1 (0.0-0.2) X10*3/uL Abs Immat Gran (auto) 0.05 H (0.00-0.03) X10*3/uL Absolute Neuts (auto) 6.9 (2.0-8.3) x10*3/uL Absolute Nucleated RBC 0.000 (0.0-0.012) X10*3/uL Nucleated RBC % (auto) 0.0 (0.0-0.2) /100WBC Sodium 137 (135-145) mmol/L Potassium 3.8 (3.3-5.1) mmol/L Chloride 106 (96-108) mmol/L Carbon Dioxide 23 (22-29) mmol/L Anion Gap 12 (12-20) BUN 17 H (9-16) mg/dL Creatinine 0.80 (0.5-1.4) mg/dL Estim Creat Clear Calc 98.8 Estimated GFR > 60 Random Glucose 109 (60-115) mg/dL Calcium 9.5 (8.4-10.2) mg/dL Total Bilirubin 0.5 (0.0-1.0) mg/dL AST 17 (5-31) U/L ALT 17 (0-31) U/L Alkaline Phosphatase 62 (39-117) U/L Troponin I High Sens < 2.7 (<3.5-17.0) ng/L Total Protein 7.3 (6.5-8.0) g/dL Albumin 4.2 (3.5-5.0) g/dL Lipase 51 (8-78) U/L Beta HCG, Quant < 2 mIU/mL Independent Interpretation I performed an independent interpretation of an: Plain X-Ray Interpretation: Moderate constipation noted on KUB without evidence of obstruction. Radiology Impression Discussion of test interpretation with radiology: I have reviewed the radiologist's reading. Radiologist Impression: XR/XR KUB IMPRESSION: Moderate stool in the ascending and transverse colon. External Record Review External record reviewed: Inpatient record, Office record and Outpatient record Prescription Management I considered prescription management with: Other Discharge Plan Discharge Clinical Impression: Constipation Patient Disposition: Home, Self-Care Instructions: Constipation (DC), High Fiber Diet (ED) Additional Instructions: You were evaluated in the emergency department today for constipation. Your x- ray is consistent with constipation and there is no evidence of a bowel obstruction. You were medicated with magnesium citrate in the emergency department today and were also given a soapsuds enema. You are being prescribed 2 medications for constipation which you can use at home. We recommend that you follow-up with your primary care provider and/or bariatric surgeon this week. Return to the emergency department if you develop worsening pain, fever, persistent vomiting or any other new or concerning symptoms. Prescriptions: New docusate sodium 100 mg capsule 200 mg PO BID Qty: 14 0RF polyethylene glycol 3350 17 gram/dose powder 17 g PO DAILY PRN (Reason: constipation) Qty: 119 0RF No Action albuterol sulfate 2.5 mg /3 mL (0.083 %) solution for nebulization 2.5 mg inhalation Q6H PRN (Reason: bronchospasm) 30 Days Qty: 75 0RF albuterol sulfate [Ventolin HFA] 90 mcg/actuation HFA aerosol inhaler 2 puff inhalation Q6H PRN (Reason: shortness of breath or wheezing) 30 Days Qty: 8 1RF cholecalciferol (vitamin D3) 50 mcg (2,000 unit) capsule 50 mcg PO DAILY 90 Days Qty: 90 1RF medroxyprogesterone [Provera] 10 mg tablet 10 mg PO DAILY 10 Days Qty: 30 3RF Rx Instructions: start Provera 1 tablet daily from day 15-24 cyclically every months, day 1 being 1st day of menses folic acid 1 mg tablet 1 mg PO DAILY 90 Days Qty: 90 1RF fluticasone propionate [Flovent HFA] 44 mcg/actuation HFA aerosol inhaler 1 puff inhalation BID 30 Days Qty: 10.6 1RF Rx Instructions: administer with spacer (DME) AeroEclipse II Nebulizer [facility] See Rx Instructions .ROUTE .MEDSUPPLY Qty: 1 0RF Rx Instructions: As directed copper gluconate 2 mg tablet 2 mg PO DAILY Bariatric Multivitamins 45 mg iron- 800 mcg-120 mcg capsule PO miconazole nitrate [Miconazole-7] 2 % cream 1 appful vaginal BEDTIME 7 Days Qty: 45 3RF Rx Instructions: Use p.r.n. for yeast infections Print Language: Azeri
--- NOTE | 2025-02-24 10:02 | ECG_ITS ---
Test Reason : ABDOMINAL PAIN Blood Pressure : */* mmHG Vent. Rate : 89 BPM Atrial Rate : 89 BPM P-R Int : 120 ms QRS Dur : 92 ms QT Int : 358 ms P-R-T Axes : 60 52 31 degrees QTcB Int : 435 ms Normal sinus rhythm Normal ECG When compared with ECG of 10-Nov-2018 11:49, No significant change was found Referred By: Juve Law Electronically Signed By: RENA AKERS
--- NOTE | 2025-02-24 10:06 | PC.NURSE ---
Had gastric sleeve placed at [facility] in September 2023. Patient stated this as she was leaving triage. LIANA Law aware.
[2025-02-24 10:29] LABS: MANUAL DIFF FLAG NO
[2025-02-24 10:37] LABS: Hematocrit 39.2 % (37.0-47.0); Hemoglobin 14.2 g/dl (12.0-16.0); Imm Gran Abs Auto 0.05 X10*3/uL (0.00-0.03); Imm Gran Pct Auto 0.4 % (0.0-0.4); Lymphocytes Absolute Auto 3.0 X10*3/uL (1.2-4.9); Mean Corpuscular HGB Conc 36.2 g/dl (31.0-35.0); Mean Corpuscular Hemoglobin 31.6 pg (27.0-33.0); Mean Corpuscular Volume 87.3 fL (80.0-98.0); NRBC Abs Auto 0.000 X10*3/uL (0.0-0.012); NRBC Pct Auto 0.0 /100WBC (0.0-0.2); Platelet Count 297 X10*3/uL (160-400); Red Blood Count 4.49 X10*6/uL (4.20-5.50); White Blood Count 11.4 X10*3/uL (4.8-10.8)
[2025-02-24 10:52] LABS: Alanine Aminotransferase 17 U/L (0-31); Albumin Level 4.2 g/dL (3.5-5.0); Alkaline Phosphatase 62 U/L (39-117); Anion Gap 12 (12-20); Aspartate Amino Transferase 17 U/L (5-31); Blood Urea Nitrogen 17 mg/dL (9-16); Calcium 9.5 mg/dL (8.4-10.2); Carbon Dioxide 23 mmol/L (22-29); Chloride 106 mmol/L (96-108); Creatinine Clr Calc Pharmacy 98.8; Estimated Glomerular Filt Rate > 60; Lipase 51 U/L (8-78); Potassium 3.8 mmol/L (3.3-5.1); Sodium 137 mmol/L (135-145); Total Protein 7.3 g/dL (6.5-8.0)
[2025-02-24 11:00] LABS: Troponin-I High Sensitivity < 2.7 ng/L (<3.5-17.0)
--- OUTSIDE RECORDS SUMMARY | 2025-02-24 12:02 | XMS_ITS | Clinical Summary ---
Author Organization [facility] Address [address] [place] [address] Care Team Providers Care General Pediatrician Name Role Phone Kyler Trejo NP Primary Care Provider [phone] Source Comments PLEASE NOTE, if this patient is a minor, it may be UNLAWFUL to discuss sensitive information that is contained in these records (such as FAMILY PLANNING, MENTAL HEALTH or SUBSTANCE ABUSE) with the minor patient's parent or other person without the patient's specific authorization.[facility] Allergies Active Allergy Reactions Criticality Noted Date Comments Other [place]-3s 03/22/2015 seafood Shrimp Hives 03/22/2015 Strawberries Rash [...] Right knee pain 03/22/2015 Mild intermittent asthma ([facility]) 03/22/2015 Hx of appendectomy 03/22/2015 Overview (03/22/2015): [...] Plan of Treatment Not on file Insurance [place] [facility] Care Teams General Pediatrician Relationship Specialty Start Date End Date Kyler Trejo NP [address] [place] [address] PCP - General 04/15/18
--- OUTSIDE RECORDS SUMMARY | 2025-02-24 12:02 | XMS_ITS | Encounter Summary ---
Author Organization [facility] Address [address] [place] [address] [place] [phone] Phone Care Team Providers Care Staff Readiness Officer Name Role Phone Lucille Marrufo MD Primary Care Provid er Encounter Details Date Type Department Care Team (Late st Contact Info) Description 08/17/2017 Procedure Pass [facility] LW PERIOP DEPT [address] [place] [address] Social History Tobacco Use Types Packs/Day Years [...] on filedocumented in this encounter Care Teams Staff Readiness Officer Relationship Specialty Start Date End Date Lucille Marrufo MD [address] [place] [address] PCP - General Internal Medicine 05/11/17 documented as of this encounter Additional Source Comments The information contained in this document represents components of the legal health record. It is not the complete legal health record.[facility]
--- OUTSIDE RECORDS SUMMARY | 2025-02-24 12:02 | XMS_ITS | Clinical Summary ---
Author Organization [address] [place] [address] [place] [phone] Phone Care Team Providers Care Warp Drawer Name Role Phone Lucille Carver MD Primary Care Provider [phone] Allergies Active Allergy Reactions Criticality Noted Date Comments Ibuprofen Nausea And Vomiting 02/16/2025 Pollen Extracts 03/09/2023 Medications ALBUTEROL INHL Inhale into the lungs. Active medroxyprogeste fernando acetate (PROVERA ORAL) Take 10 mg by mouth. Active WHEAT DEXTRIN ORAL Take 4 g by mouth daily. 4 Active cholecalciferol (VITAMIN D-3) 50 mcg (2,000 unit) tablet Take 1 Tablet by mouth daily. 4 Active copper gluconate 2 mg tablet Take 1 tablet (2 mg total) by mouth 1 (one) time each day. 30 tablet 5 03/24/20 25 Active ondansetron (ZOFRAN) 4 mg tablet Take 1 tablet (4 mg total) by mouth every 8 (eight) hours if needed for nausea or vomiting for up to 7 days. 21 tablet 5 02/24/20 25 Active Problems Problem Noted Date Diagnosed Date Class 1 obesity due to exces s calories without serious comorbidity with body mass index (BMI) of 33.0 to 33.9 in adult 04/20/2023 Encounters Date Type Department Care Team Description 02/16/2025 8:15 AM EDT Office Visit Bariatric Surgery [facility] [address] [place] [address] Selma Eason PA Class 1 obesity due to excess calories without serious comorbidity with body mass index (BMI) of 33.0 to 33.9 in adult (Primary Dx); Bariatric surgery status from Last 3 Months Social History Tobacco Use Types Packs/Day Years Used Date Smoking Tobacco: Never Assessed Comments Unknown Sex and Gender Information Value Date Recorded Sex Assigned at Not on file Legal Sex Female 4:57 PM EST Gender Identity Not on file Sexual Orientation Not on file Last Filed Vital Signs Vital Sign Reading Time Taken Comments Blood Pressure 135/89 02/16/2025 8:14 AM EDT Pulse 71 02/16/2025 8:14 AM EDT Temperature 36.5 C (97.7 F) 02/16/2025 8:14 AM EDT Respiratory Rate - - Oxygen Saturation - - Inhaled Oxygen Concentration - - Weight 87.5 kg (193 lb) 02/16/2025 8:14 AM EDT Height 162.6 cm (5' 4 ) 02/16/2025 8:14 AM EDT Body Mass Index 33.13 02/16/2025 8:14 AM EDT Plan of Treatment Upcoming Encounters Date Type Department Care Team (Late st Contact Info) Description 08/16/2025 1:00 PM EDT Office Visit Bariatric Surgery - [address] [place] [address] Selma Eason PA [address] [place] [phone] Health Maintenance Due Date Last Done Comments Hepatitis B Vaccines (1 of 3 - 19+ 3-dose series) 01/07/2007 Cervical Cancer Screening: Pap Smear 01/07/2009 Pneumococcal Vaccine: Pediatrics (0 to 5 Years) and At-Risk Patients (6 to 49 Years) (2 of 2 - PCV) 10/21/2019 10/20/2018 HIV Screening 07/12/2023 Hepatitis C Screening 07/12/2023 Social Influencers of Health Screening 07/12/2023 Depression Screening 06/08/2024 DTaP,Tdap,and Td Vaccines (2 - Td or Tdap) 12/03/2027 12/02/2017 Cholesterol Screening (Lipid Panel) 03/13/2028 03/13/2023 RSV Immunization Adult Patients (1 - 1-dose 75+ series) 01/07/2063 Influenza Vaccine Completed 02/13/2025, , 03/11/2023, Additional history exists COVID-19 Vaccine Completed 02/14/2025, , 10/27/2020, Additional history exists HIB Vaccines Aged Out No longer eligi [...] to complete this topic RSV Immunization Patients Under 20 months Aged Out No longer eligible based on patient's age to complete this topic Varicella Vaccines Aged Out No longer eligible based on patient's age to complete this topic Procedures Procedure Name Priority Date/Time Associated Diagnosis Comments COPPER, SERUM Routine 02/16/2025 8:35 AM EDT Class 1 obesity due to excess calories without serious comorbidity with body mass index (BMI) of 33.0 to 33.9 in adult Bariatric surgery status VITAMIN B1 Routine 02/16/2025 8:35 AM EDT Class 1 obesity due to excess calories without serious comorbidity with body mass index (BMI) of 33.0 to 33.9 in adult Bariatric surgery status VITAMIN B12 Routine 02/16/2025 8:35 AM EDT Class 1 obesity due to excess calories without serious comorbidity with body mass index (BMI) of 33.0 to 33.9 in adult Bariatric surgery status VITAMIN B6 Routine 02/16/2025 8:35 AM EDT Class 1 obesity due to excess calories without serious comorbidity with body mass index (BMI) of 33.0 to 33.9 in adult Bariatric surgery status VITAMIN D 25 HYDROXY Routine 02/16/2025 8:35 AM EDT Class 1 obesity due to excess calories without serious comorbidity with body mass index (BMI) of 33.0 to 33.9 in adult Bariatric surgery status ZINC Routine 02/16/2025 8:35 AM EDT Class 1 obesity due to excess calories without serious comorbidity with body mass index (BMI) of 33.0 to 33.9 in adult Bariatric surgery status IRON AND TIBC Routine 02/16/2025 8:35 AM EDT Class 1 obesity due to excess calories without serious comorbidity with body mass index (BMI) of 33.0 to 33.9 in adult Bariatric surgery status COMPREHENSIVE METABOLIC PANEL Routine 02/16/2025 8:35 AM EDT Class 1 obesity due to excess calories without serious comorbidity with body mass index (BMI) of 33.0 to 33.9 in adult Bariatric surgery status FOLATE Routine 02/16/2025 8:35 AM EDT Class 1 obesity due to excess calories without serious comorbidity with body mass index (BMI) of 33.0 to 33.9 in adult Bariatric surgery status LIPID PANEL Routine 03/13/2023 from Last 3 Months or Most Recently Relevant to Health Maintenance Results * Iron and TIBC (02/16/2025 8:35 AM EDT) Iron 42 40 - 150 mcg/dL LAB CHEMISTRY METHOD 02/16/2025 10:18 AM EDT [facility] TIBC 261 250 - 450 mcg/dL LAB CHEMISTRY METHOD 02/16/2025 10:18 AM EDT [facility] Iron Saturation 16 15 - 50 % LAB CHEMISTRY METHOD 02/16/2025 10:18 AM T [facility] Blood Venous blood specimen / Unknown Venipuncture / Unknown 02/16/2025 8:35 AM EDT 02/16/2025 8:35 AM EDT Selma GAINES LAB BLOOD ORDERABLES Final R esult [facility] ([facility]) [facility] [address] [place] [address], * (ABNORMAL) Copper, serum (02/16/2025 8:35 AM EDT) Copper 778(L) 810 - 1990 ug/L 02/21/2025 8:43 AM EDT [facility] Comment: Copper values may be elevated to twice the normal levels in . Elevated results may be due to sample collected in a non-certified trace element-free tube. This test was developed and the performance characteristics determined by [facility]. It has not been cleared or approved by the FDA. The laboratory is regulated under CLIA as qualified to perform high-complexity testing. This test is used for patient testing purposes. It should not be regarded as investigational or for research. Test performed at [facility], [address] , [place] [address] Amira Fagan MD, PhD - Immigration Coordinator Blood Venous blood specimen / Unknown Venipuncture / Unknown 02/16/2025 8:35 AM EDT 02/16/2025 8:35 AM EDT Selma GAINES LAB BLOOD ORDERABLES Final R esult [facility] [address] [place] [address] * Zinc (02/16/2025 8:35 AM EDT) Zinc 68 60 - 130 ug/dL 02/20/2025 12:52 PM EDT [facility] Comment: Elevated results may be due to sample collected in a non-certified trace element-free tube. This test was developed and the performance characteristics determined by [facility]. It has not been cleared or approved by the FDA. The laboratory is regulated under CLIA as qualified to perform high-complexity testing. This test is used for patient testing purposes. It should not be regarded as investigational or for research. Test performed at [facility], [address] , [place] [address] Amira Fagan MD, PhD - Immigration Coordinator Blood Venous blood specimen / Unknown Venipuncture / Unknown 02/16/2025 8:35 AM EDT 02/16/2025 8:35 AM EDT Selma GAINES LAB BLOOD ORDERABLES Final R esult [facility] [address] [place] [address] * Vitamin D 25 hydroxy (02/16/2025 8:35 AM EDT) Pathologist [facility] Vit D, 25-Hydroxy 58.4 30.0 - 80.0 ng/mL LAB CHEMISTRY METHOD 02/16/2025 11:06 AM EDT [facility] Blood Venous blood specimen / Unknown Venipuncture / Unknown 02/16/2025 8:35 AM EDT 02/16/2025 8:35 AM EDT Selma GAINES LAB BLOOD ORDERABLES Final R esult [facility] [address] [place] [address], * Vitamin B1 (02/16/2025 8:35 AM EDT) Pathologist [facility] Vitamin B1 Whole Blood 72 38 - 122 ug/L 02/21/2025 6:34 AM EDT [facility] Comment: This test was developed and the performance characteristics determined by [facility]. It has not been cleared or approved by the FDA. The laboratory is regulated under CLIA as qualified to perform high-complexity testing. This test is used for patient testing purposes. It should not be regarded as investigational or for research. Test performed at [facility], [address] , [place] [address] Amira Fagan MD, PhD - Immigration Coordinator Blood Venous blood specimen / Unknown Venipuncture / Unknown 02/16/2025 8:35 AM EDT 02/16/2025 8:35 AM EDT Selma GAINES LAB BLOOD ORDERABLES Final R esult Performing Organization Address City/[facility]/ZIP Co de Phone Number [facility] [address] [place] [address] * (ABNORMAL) Vitamin B6 (02/16/2025 8:35 AM EDT) Pathologist [facility] Vitamin B6 (Pyridoxine) Level 88(H) 5 - 50 ug/L 02/22/2025 7:09 AM EDT [facility] Comment: This test was developed and the performance characteristics determined by [facility]. It has not been cleared or approved by the FDA. The laboratory is regulated under CLIA as qualified to perform high-complexity testing. This test is used for patient testing purposes. It should not be regarded as investigational or for research. Test performed at [facility], [address] [place] [address] Amira Fagan MD, PhD - Immigration Coordinator Blood Venous blood specimen / Unknown Venipuncture / Unknown 02/16/2025 8:35 AM EDT 02/16/2025 8:35 AM EDT us Selma GAINES LAB BLOOD ORDERABLES Final R esult Performing Organization Address City/[facility]/ZIP Co de Phone Number [facility] [address] [place] [address] * (ABNORMAL) Folate (02/16/2025 8:35 AM EDT) Pathologist [facility] Folate >20.0(H) 2.8 - 17.0 ng/ml LAB CHEMISTRY METHOD 02/16/2025 10:40 AM EDT [facility] Blood Venous blood specimen / Unknown Venipuncture / Unknown 02/16/2025 8:35 AM EDT 02/16/2025 8:35 AM EDT Selma GAINES LAB BLOOD ORDERABLES Final R esult Performing Organization Address City/[facility]/ZIP Co de Phone Number [facility] [address] [place] [address], [place] [phone] * (ABNORMAL) Vitamin B12 (02/16/2025 8:35 AM EDT) [facility] Vitamin B-12 1,014(H) 250 - 900 pcg/mL LAB CHEMISTRY METHOD 02/16/2025 10:40 AM EDT [facility] Blood Venous blood specimen / Unknown Venipuncture / Unknown 02/16/2025 8:35 AM EDT 02/16/2025 8:35 AM EDT Selma GAINES LAB BLOOD ORDERABLES Final R esult Performing Organization Address City/[facility]/ZIP Co de Phone Number [facility] [address] [place] [address], [place] [phone] * (ABNORMAL) Comprehensive metabolic panel (02/16/2025 8:35 AM EDT) [facility] Sodium 138 133 - 145 mmol/L LAB CHEMISTRY METHOD 02/16/2025 10:18 AM EDT [facility] Potassium 4.0 3.5 - 5.5 mmol/L LAB CHEMISTRY METHOD 02/16/2025 10:18 AM EDT [facility] Chloride 104 96 - 110 mmol/L LAB CHEMISTRY METHOD 02/16/2025 10:18 AM EDT [facility] CO2 30 21 - 32 mmol/L LAB CHEMISTRY METHOD 02/16/2025 10:18 AM EDT [facility] Anion Gap 4 3 - 11 LAB CHEMISTRY METHOD 02/16/2025 10:18 AM EDT [facility] Glucose 65(L) 70 - 100 mg/dL LAB CHEMISTRY METHOD 02/16/2025 10:[address] [facility] BUN 13 5 - 25 mg/dL LAB CHEMISTRY METHOD 02/16/2025 10:[address] [facility] Creatinine 0.74 0.50 - 1.10 mg/dL LAB CHEMISTRY METHOD 02/16/2025 10:[address] [facility] eGFR 107 >=60 mL/min/1. 73m2 LAB CHEMISTRY METHOD 02/16/2025 10:[address] [facility] Comment:Calculation based on the Chronic Kidney Disease Epidemiology Collaboration (CKD-EPI) equation refit without adjustment for race. BUN/Creatinine Ratio 17.6 LAB CHEMISTRY METHOD 02/16/2025 10:[address] [facility] Calcium 9.3 8.5 - 10.5 mg/dL LAB CHEMISTRY METHOD 02/16/2025 10:[address] [facility] AST (SGOT) 13 10 - 42 unit/L LAB CHEMISTRY METHOD 02/16/2025 10:[address] [facility] ALT (SGPT) 17 10 - 60 unit/L LAB CHEMISTRY METHOD 02/16/2025 10:[address] [facility] Alkaline Phosphatase 68 42 - 121 unit/L LAB CHEMISTRY METHOD 02/16/2025 10:[address] [facility] Total Protein 6.7 6.0 - 8.0 g/dL LAB CHEMISTRY METHOD 02/16/2025 10:[address] [facility] Albumin 3.7 3.2 - 5.0 g/dL LAB CHEMISTRY METHOD 02/16/2025 10:[address] [facility] Total Bilirubin 0.4 0.0 - 1.4 mg/dL LAB CHEMISTRY METHOD 02/16/2025 10:[address] [facility] Blood Venous blood specimen / Unknown Venipuncture / Unknown 02/16/2025 8:35 AM EDT 02/16/2025 8:35 AM EDT us Selma GAINES LAB BLOOD ORDERABLES Final R esult [facility] [address] [place] [address], * (ABNORMAL) Lipid panel (03/13/2023) LDL/HDL Ratio 6(A) 0 - 4 Triglycerides 127 0 - 150 mg/dL Cholesterol 128 0 - 200 mg/dL HDL 22(A) >=40 mg/dL LDL Cholesterol 81 0 - 100 mg/dL Blood Venous blood specimen / Unknown Historical Provider LAB BLOOD ORDERABLES Tawanna l Result from Last 3 Months or Most Recently Relevant to Health Maintenance Insurance [facility] Care Teams Warp Drawer Relationship Specialty Start Date End Date Lucille Carver MD [address] [place] [address] , [address] Physician Associ D/B/A: [facility] RONALD Knight PCP - General 12/17/18
--- OUTSIDE RECORDS SUMMARY | 2025-02-24 12:02 | XMS_ITS | Encounter Summary ---
Author Organization [facility] Address [address] [place] [address] [place] [phone] Phone Care Team Providers Care Flying Ii Instructor Name Role Phone Lucille Marrufo MD Primary Care Provid er Encounter Details Date Type Department Care Team (Late st Contact Info) Description 08/17/2017 Procedure Pass [facility] LW PERIOP DEPT [address] [place] [address] Social History Tobacco Use Types Packs/Day Years [...] on filedocumented in this encounter Care Teams Flying Ii Instructor Relationship Specialty Start Date End Date Lucille Marrufo MD [address] [place] [address] PCP - General Internal Medicine 05/11/17 documented as of this encounter Additional Source Comments The information contained in this document represents components of the legal health record. It is not the complete legal health record.[facility]
--- OUTSIDE RECORDS SUMMARY | 2025-02-24 12:02 | XMS_ITS | Encounter Summary ---
Author Organization [facility] Address [address] [place] [phone] Phone Care Team Providers Care Laborer Starch Factory Name Role Phone Lucille Marrufo MD Primary Care Provid er Encounter Details Date Type Department Care Team (Late st Contact Info) Description 08/12/2017 Prep for Surgery KELLY [address] [address] Vickie Moralez MD [address] [place] [phone] Social History Tobacco Use Types Packs/Day Years [...] on filedocumented in this encounter Care Teams Laborer Starch Factory Relationship Specialty Start Date End Date Lucille Marrufo MD [address] [place] [address] PCP - General Internal Medicine 05/11/17 documented as of this encounter Additional Source Comments The information contained in this document represents components of the legal health record. It is not the complete legal health record.[facility]
--- OUTSIDE RECORDS SUMMARY | 2025-02-24 12:02 | XMS_ITS | Clinical Summary ---
Author Organization [facility] Address [address] [place] [phone] Phone Care Team Providers Care Finished Garment Inspector Name Role Phone Lucille Marrufo MD Primary [...] this topic Medical Devices Implanted Type Area Customer Acquisition Manager Device Identifier Shelf Expiration Date Model / Serial / Lot Tissue Corneal - [id number] Implanted:Qty: 1 on 08/17/2017 by Alicia Hair MD at [address] Left: Eye [employer] 08/27/2017 / [id number] -[id number] / [place] [address] [place] [address] [place] [address] [place] [address] [place] [address] [place] [address] ACO Advance Directives For more information, please contact: [phone] (9AM - 5PM [facility], Thursday-Thursday) Documents on File Type Date Recorded Patient Sap Senior Developer Expl anation Healthcare Proxy 08/17/2017 3:11 PM * Full Code (Presumed) (Latest Code Status on File) Date Activated Date Inactivated Comments 08/17/2017 10:45 AM 08/17/2017 4:46 PM Care Teams Finished Garment Inspector Relationship Specialty Start Date End Date Lucille Marrufo MD [address] [place] [address] PCP - General Internal Medicine 05/11/17 Additional Source Comments The information contained in this document represents components of the legal health record. It is not the complete legal health record.[facility]
[2025-02-24] MEDS: oxyCODONE HCl Immed Release 5 MG TABLET PO (12:08)
[2025-02-24 16:20] VITALS: BP 140/82; PULSE 100; RESP 20; TEMP 36.9; O2SAT 98
== END 2025-02-24 16:21 | disposition home or self-care (01) ==
PROVIDERS: Physician Assistant; Emergency Provider Emergency Medicine; PCP Internal Medicine
DX: K59.00 Constipation, unspecified (principal); R11.0 Nausea; Z87.891 Personal history of nicotine dependence; R10.2 Pelvic and perineal pain; Z79.899 Other long term (current) drug therapy
CPT/HCPCS: 36415; 74018; 80053; 83690; 84484; 84702; 85025; 93005; 96372; 99283; 99284; J1885

== ENCOUNTER → 2025-02-24 10:01 | Outpatient (BNV) | payer OTHER, SELFPAY | PROVIDERS: PCP Internal Medicine; Visit Provider Radiology Diagnostic Radiology | DX: K59.00 Constipation, unspecified (principal) | CPT/HCPCS: 74018 ==

== ENCOUNTER → 2025-02-24 10:02 | Outpatient (BNV) | payer OTHER, SELFPAY | PROVIDERS: Emergency Provider Emergency Medicine; PCP Internal Medicine; Visit Provider Internal Medicine | DX: R10.9 Unspecified abdominal pain (principal) | CPT/HCPCS: 93010 ==

== ENCOUNTER 2025-03-23 13:55 | Outpatient (AMB) | payer OTHER, SELFPAY ==
[2025-03-23 13:58] VITALS: BP 130/82; PULSE 70; O2SAT 96; BMI 33.8
--- NOTE | 2025-03-23 13:58 | MHC.PC.OV ---
Vital Signs 03/23/25 13:58 Height 5 ft 3 in Weight 191 lb BMI 33.8 BP 130/82 Blood Pressure Location Lt brachial Position Sitting Pulse 70 Pulse Source Pulse Oximeter Pulse Oximetry (%) 96 Oxygen Delivery Method Room Air Intake Visit Reasons: Annual exam Paper Sorter Required: No Accompanied by: Self / Same As Patient Allergies citalopram Allergy (Intermediate, Verified 03/23/25 14:30) nausea ibuprofen (From MOTRIN) Allergy (Intermediate, Verified 03/23/25 14:30) VOMITING Medication List - Last Reconciled 03/23/25 by Lucille Carver MD albuterol sulfate 2.5 mg (3 mL) inhalation Q6H PRN 30 days cholecalciferol (vitamin D3) 50 mcg PO DAILY 90 days copper gluconate 2 mg PO DAILY docusate sodium 200 mg (2 x 100 mg) PO BID fluticasone propionate 44 mcg/actuation (Flovent HFA) 1 puff inhalation BID 30 days folic acid 1 mg PO DAILY 90 days medroxyprogesterone (Provera) 10 mg PO DAILY 10 days miconazole nitrate 2% (Miconazole-7) 1 appful vaginal BEDTIME 7 days fgawcwaasjnv-mlb-pnxy-FA-vit K 45 mg iron- 800 mcg-120 mcg (Bariatric Multivitamins) caps PO nebulizers (AeroEclipse II Nebulizer) As directed polyethylene glycol 3350 17 grams PO DAILY PRN Ventolin HFA 90 mcg/actuation (albuterol sulfate) 2 puffs inhalation Q6H PRN 30 days NS Tobacco use date assessed: 03/23/25 Dental Screening Dental Screen Date: 03/23/25 Did you have a dental visit in the last 12 months?: No Did you have a dental problem in the last 6 months where you did not have access to dental care?: No Was dental information given to patient?: No HPI HPI Comments History of Present Illness Details The patient is a 35-year-old female presenting for an annual physical examination and preventative care. She reports a history of allergic reactions to citalopram, which causes nausea, and ibuprofen, which causes vomiting. She manages constipation with Docusate and MiraLAX as needed. The patient has a history of depression with a PHQ-9 score of 5, indicating mild symptoms. She denies feeling depressed or sad currently. 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 Her parents are alive and have a history of hypertension. The patient reports onychocryptosis affecting both feet, with nails growing inward, causing discomfort. She also experiences left shoulder pain since May, which has intensified recently. She previously smoked but has since quit and does not consume alcohol. [facility] Medical History (Updated 03/23/25 @ 14:45 by Lucille Carver MD) Morbid obesity due to excess calories BMI 50.0-59.9, adult Obese Keratoconus of both eyes Pneumonia due to COVID-19 virus Asthma PCOS (polycystic ovarian syndrome) Surgical History History of sleeve gastrectomy Hx laparoscopic cholecystectomy History of hysteroscopy History of appendectomy Corneal transplant status Family History Mother Hypertension Father Hypertension Social History Housing: Apartment Alcohol intake: never Patient Tobacco Use Status: Former Tobacco user Tobacco use type: Cigarette Cigarettes Per Day: 3 e-Cigarette/Vaping Use: Never Used Second Hand Smoke Exposure: No service: No Current occupational status: unemployed Gender identity: Female Cognitive needs: No Hearing needs: No Vision needs: Yes Female Reproductive History Menstrual Age of Menarche: 8 Questionnaire PHQ-9 Over the last 2 weeks, how often have you been bothered by any of the following problems? 1. Little interest or pleasure in doing things: not at all 2. Feeling down, depressed, or hopeless: not at all 3. Trouble falling or staying asleep, or sleeping too much: several days 4. Feeling tired or having little energy: several days 5. Poor appetite or overeating: nearly every day 6. Feeling bad about yourself - or that you are a failure or have let yourself or your family down: not at all 7. Trouble concentrating on things, such as reading the newspaper or watching television: not at all 8. Moving or speaking so slowly that other people could have noticed. Or the opposite - being so fidgety or restless that you have been moving around a lot more than usual: not at all 9. Thoughts that you would be better off or of hurting yourself in some way: not at all Total score: 5 Depression Screening Interpretation: Positive Depression Screening Follow-up: Existing condition and Follow-up Visit Requested Depression Screening Done: Yes 23637 - PHQ-9 Billing: Yes Source: Developed by Drs. Carlos Murillo, Karime Covington, Sergio Rosales and colleagues, with an educational joao from [employer] Thrive Questionnaire Date Thrive assessed: 03/23/25 What is your living situation today?: I have a steady place to live Within the past 12 months, did the food you bought not last and you didn't have the money to get more?: Never true Within the past 12 months, did you worry whether your food would run out before you got money to buy more?: Never true Do you have trouble paying for medicines?: No Do you have trouble getting transportation to medical appointments?: No Do you have trouble paying your heating and electricity bill?: No Do you have trouble taking care of your child, family member or friend?: No Do you have trouble with day-to-day activities such as bathing, preparing meals, shopping, managing finances, etc.?: No Are you currently unemployed and looking for a job?: Yes Are you interested in more education?: Yes Please select the resources that you would like help with: None Currently or been in a relationship where the following occur: No concerns reported THRIVE Score: 0 AUDIT C Alcohol Use Questionnaire (AUDIT-C) 1. How often do you have a drink containing alcohol?: Never 3. How often do you have six or more drinks on one occasion?: Never Total Score: 0 Score Reviewed/Action Taken: No THAO-7 AMB Questionnaire THAO-7 Date THAO - 7 assessed: 03/23/25 Feeling nervous, anxious, or on edge: 1 = Several days Not being able to stop or control worryin = Several days Worrying too much about different things: 1 = Several days Trouble relaxin = Several days Being so restless that it is hard to sit still: 1 = Several days Becoming easily annoyed or irritable: 1 = Several days Feeling afraid as if something awful might happen: 0 = Not at all Total THAO-7 score (0-4 normal; 5-9 mild; 10-14 moderate; 15-21 severe): 6 Source: Developed by Drs. Carlos Murillo, Karime Covington, Sergio Rosales and colleagues, with an educational joao from [employer] THAO-7 Assessment Billing THAO-7 Assessment Tool: THAO-7 Assessment 94698 Review of Systems Const All systems reviewed & are unremarkable except as noted in HPI and below Card Denies chest pain at rest, Denies chest pain with activity, Denies edema, Denies irregular heart rhythm, Denies claudication, Denies dyspnea, Denies dyspnea on exertion, Denies orthopnea, Denies paroxysmal nocturnal dyspnea and Denies slow heart rate Resp Denies cough, Denies dyspnea and Denies dyspnea on exertion GI Denies abdominal pain, Denies change in bowel habits, Denies excessive flatus, Denies nausea and Denies vomiting Denies urinary incontinence, Denies urinary hesitancy and Denies urinary urgency Neuro Denies lack of coordination Physical exam (Primary Care) Vital Signs: Last Vital Signs Pulse 70 03/23/25 13:58 BP 130/82 03/23/25 13:58 Pulse Ox 96 03/23/25 13:58 Oxygen Delivery Method Room Air 03/23/25 13:58 BMI result Body Mass Index 33.8 BMI Assessment/Plan discussion: High BMI High, discussed plan: lifestyle, weight reduction, dietary and physical activity Tobacco/Smoking Status: Tobacco use Status Tobacco use date assessed 03/23/25 03/23/25 14:04 Patient Tobacco Use Status Former Tobacco user 03/23/25 14:04 Tobacco use type Cigarette 03/23/25 14:04 e-Cigarette/Vaping Use Never Used 03/23/25 14:04 PHQ-9: PHQ-9 Score PHQ-9: Total score 5 03/23/25 14:04 Depression Screening Interpretation: Positive Depression Screening Follow-up: Existing condition and Follow-up Visit Requested Thrive Assessment: Date of Thrive Assessment Date Thrive assessed 03/23/25 03/23/25 14:04 Currently or been in a relationship where the following occur: No concerns reported HENMT Head: Yes normal to inspection, Yes normocephalic and Yes atraumatic Ears: external ears normal Eyes General: appearance normal, both eyes and all related structures Eyelids: Yes eyelids normal Conjunctivae: conjunctivae normal Neck Neck: Yes normal visual inspection and Yes supple Resp Effort & Inspection: normal respiratory effort Auscultation: clear to auscultation bilaterally Cardio Jugular venous distension: no JVD Rate: regular rate Rhythm: regular rhythm Heart sounds: S1 normal heart sound present and S2 normal heart sound present GI Inspection: Yes normal to inspection Palpation (GI): Soft to palpation and nontender Auscultation: normal bowel sounds Skin General skin exam: no rashes or lesions noted Neuro General: no focal motor deficits Extrem General: Yes full ROM Psych Appearance: grossly normal Coding Level of Care Code Est Pt Level 3 (86249) Est Pt Prev Care 18-39y(14104) Diagnoses Physical exam Z00.00 Onychogryposis L60.2 Pain of left scapula M89.8X1 Mild major depression F32.0 Additional Codes PHQ-9 - 53746 - PHQ-9 Billing: Yes ([id number]) THAO-7 Assessment Billing - THAO-7 Assessment Tool: THAO-7 Assessment 87740 ([id number]) Time Spent (min) 32 Assessment & Plan Assessment & Plan (1) Physical exam: Code(s): Z00.00 - Encounter for general adult medical examination without abnormal findings Category: Medical (2) Onychogryposis: Code(s): L60.2 - Onychogryphosis Category: Medical (3) Pain of left scapula: Code(s): M89.8X1 - Other specified disorders of bone, shoulder Category: Medical (4) Mild major depression: Code(s): F32.0 - Major depressive disorder, single episode, mild Category: Medical Plan Plan 1. Encounter for general adult medical examination without abnormal findings Z00.00 Repeat in a year. 2. Depression, unspecified F32.A The patient has mild depression with a PHQ-9 score of 5. Currently, she denies feeling depressed or sad. 3. Ingrowing nail L60.0 The patient reports onychocryptosis affecting both feet, causing discomfort. 4. Other specified disorders of bone, shoulder M89.8X1 The patient experiences left shoulder pain since May, which has intensified recently. Orders: Orders XR scapula LT Today M89.8X1 - Other specified disorders of bone, shoulder Referrals Podiatry Referral L60.2 - Onychogryphosis
--- OUTSIDE RECORDS SUMMARY | 2025-03-23 17:45 | XMS_ITS | Clinical Summary ---
Author Organization [address] [place] [address] Address [address] [place] [address] Phone Care Team Providers Care Reducing Machine Operator Name Role Phone Lucille Carver MD Primary Care Provider [phone] Allergies Active Allergy Reactions Criticality Noted Date [...] 8:15 AM EDT Office Visit Bariatric Surgery [facility] [address] [facility] [address] [place] [address] Selma Eason PA Class 1 [...] PM EDT Office Visit Bariatric Surgery - [address] [place] [address] Selma Eason PA [address] [place] [phone] Health Maintenance Due Date Last Done Comments Hepatitis B Vaccines (1 of 3 - 19+ 3-dose series) 01/07/2007 Cervical Cancer Screening: Pap Smear 01/07/2009 HPV Vaccines (1 - 3-dose SCDM series) 01/07/2015 Pneumococcal Vaccine: Pediatrics (0 to 5 Years) [...] LAB CHEMISTRY METHOD 02/16/2025 10:18 AM EDT [facility] TIBC 261 250 - 450 mcg/dL LAB CHEMISTRY METHOD 02/16/2025 10:18 AM EDT [facility] Iron Saturation 16 15 - 50 % LAB CHEMISTRY METHOD 02/16/2025 10:18 AM T [facility] Blood Venous blood specimen / Unknown Venipuncture / Unknown 02/16/2025 8:35 AM EDT 02/16/2025 8:35 AM EDT us Selma GAINES LAB BLOOD ORDERABLES Final R esult [facility] ([facility]) [facility] [address] [place] [address], * (ABNORMAL) Copper, serum (02/16/2025 8:35 AM EDT) Copper 778(L) 810 - 1990 ug/L 02/21/2025 8:[address] [facility] Comment: Copper values may be elevated to twice the normal levels in . Elevated results may be due to sample collected in a non-certified trace element-free tube. This test was developed and the performance characteristics determined by [facility]. It has not been cleared or approved by the FDA. The laboratory is regulated under CLIA as qualified to perform high-complexity testing. This test is used for patient testing purposes. It should not be regarded as investigational or for research. Test performed at [facility], [address] [place] [address] Amira Fagan MD, PhD - Party Plan Demonstrator Blood Venous blood specimen / Unknown Venipuncture / Unknown 02/16/2025 8:35 AM EDT 02/16/2025 8:35 AM EDT Selma GAINES LAB BLOOD ORDERABLES Final R esult [facility] [address] [place] [address] * Zinc (02/16/2025 8:35 AM EDT) Zinc 68 60 - 130 ug/dL 02/20/2025 12:[address] [facility] Comment: Elevated results may be due to sample collected in a non-certified trace element-free tube. This test was developed and the performance characteristics determined by [facility]. It has not been cleared or approved by the FDA. The laboratory is regulated under CLIA as qualified to perform high-complexity testing. This test is used for patient testing purposes. It should not be regarded as investigational or for research. Test performed at [facility], [address], [place] [address] Amira Fagan MD, PhD - Party Plan Demonstrator Blood Venous blood specimen / Unknown Venipuncture / Unknown 02/16/2025 8:35 AM EDT 02/16/2025 8:35 AM EDT Selma GAINES LAB BLOOD ORDERABLES Final R esult [facility] [address] [place] [address] * Vitamin D 25 hydroxy (02/16/2025 8:35 AM EDT) Pathologist [facility] Vit D, 25-Hydroxy 58.4 30.0 - 80.0 ng/mL LAB CHEMISTRY METHOD 02/16/2025 11:06 AM EDT [facility] Blood Venous blood specimen / Unknown Venipuncture / Unknown 02/16/2025 8:35 AM EDT 02/16/2025 8:35 AM EDT Selma GAINES LAB BLOOD ORDERABLES Final R esult [facility] [address] [place] [address], * Vitamin B1 (02/16/2025 8:35 AM EDT) [facility] Vitamin B1 Whole Blood 72 38 - 122 ug/L 02/21/2025 6:[address] [facility] Comment: This test was developed and the performance characteristics determined by [facility]. It has not been cleared or approved by the FDA. The laboratory is regulated under CLIA as qualified to perform high-complexity testing. This test is used for patient testing purposes. It should not be regarded as investigational or for research. Test performed at [facility], [address] , [place] [address] Amira Fagan MD, PhD - Party Plan Demonstrator Blood Venous blood specimen / Unknown Venipuncture / Unknown 02/16/2025 8:35 AM EDT 02/16/2025 8:35 AM EDT Selma GAINES LAB BLOOD ORDERABLES Final R esult Performing Organization Address City/[facility]/ZIP Co de Phone Number [facility] [address] [place] [address] * (ABNORMAL) Vitamin B6 (02/16/2025 8:35 AM EDT) Pathologist [facility] Vitamin B6 (Pyridoxine) Level 88(H) 5 - 50 ug/L 02/22/2025 7:09 AM EDT [facility] Comment: This test was developed and the performance characteristics determined by [facility]. It has not been cleared or approved by the FDA. The laboratory is regulated under CLIA as qualified to perform high-complexity testing. This test is used for patient testing purposes. It should not be regarded as investigational or for research. Test performed at [facility], [address] [facility], [place] [address] Amira Fagan MD, PhD - Party Plan Demonstrator Blood Venous blood specimen / Unknown Venipuncture / Unknown 02/16/2025 8:35 AM EDT 02/16/2025 8:35 AM EDT us Selma GAINES LAB BLOOD ORDERABLES Final R esult Performing Organization Address City/[facility]/ZIP Co de Phone Number [facility] [address] [place] [address] * (ABNORMAL) Folate (02/16/2025 8:35 AM EDT) Folate >20.0(H) 2.8 - 17.0 ng/ml LAB CHEMISTRY METHOD 02/16/2025 10:40 AM EDT [facility] Blood Venous blood specimen / Unknown Venipuncture / Unknown 02/16/2025 8:35 AM EDT 02/16/2025 8:35 AM EDT Selma GAINES LAB BLOOD ORDERABLES Final R esult Performing Organization Address [facility]/ZIP Co de Phone Number [facility] [address] [place] [address], [place] [phone] * (ABNORMAL) Vitamin B12 (02/16/2025 8:35 AM EDT) [facility] Vitamin B-12 1,014(H) 250 - 900 pcg/mL LAB CHEMISTRY METHOD 02/16/2025 10:40 AM EDT [facility] Blood Venous blood specimen / Unknown Venipuncture / Unknown 02/16/2025 8:35 AM EDT 02/16/2025 8:35 AM EDT Selma GAINES LAB BLOOD ORDERABLES Final R esult Performing Organization Address [facility]/ZIP Co de Phone Number [facility] [address] [place] [address], [place] [phone] * (ABNORMAL) Comprehensive metabolic panel (02/16/2025 8:35 AM EDT) [facility] Sodium 138 133 - 145 mmol/L LAB CHEMISTRY METHOD 02/16/2025 10:18 AM EDT [facility] Potassium 4.0 3.5 - 5.5 mmol/L LAB CHEMISTRY METHOD 02/16/2025 10:18 AM EDT [facility] Chloride 104 96 - 110 mmol/L LAB CHEMISTRY METHOD 02/16/2025 10:18 AM EDT [facility] CO2 30 21 - 32 mmol/L LAB CHEMISTRY METHOD 02/16/2025 10:18 AM EDT [facility] Anion Gap 4 3 - 11 LAB CHEMISTRY METHOD 02/16/2025 10:18 AM EDT [facility] Glucose 65(L) 70 - 100 mg/dL LAB CHEMISTRY METHOD 02/16/2025 10:18 AM [facility] BUN 13 5 - 25 mg/dL LAB CHEMISTRY METHOD 02/16/2025 10:18 AM [facility] Creatinine 0.74 0.50 - 1.10 mg/dL LAB CHEMISTRY METHOD 02/16/2025 10:18 AM [facility] eGFR 107 >=60 mL/min/1. 73m2 LAB CHEMISTRY METHOD 02/16/2025 10:18 AM [facility] Comment:Calculation based on the Chronic Kidney Disease Epidemiology Collaboration (CKD-EPI) equation refit without adjustment for race. BUN/Creatinine Ratio 17.6 LAB CHEMISTRY METHOD 02/16/2025 10:18 AM [facility] Calcium 9.3 8.5 - 10.5 mg/dL LAB CHEMISTRY METHOD 02/16/2025 10:18 AM [facility] AST (SGOT) 13 10 - 42 unit/L LAB CHEMISTRY METHOD 02/16/2025 10:18 AM [facility] ALT (SGPT) 17 10 - 60 unit/L LAB CHEMISTRY METHOD 02/16/2025 10:18 AM [facility] Alkaline Phosphatase 68 42 - 121 unit/L LAB CHEMISTRY METHOD 02/16/2025 10:18 AM [facility] Total Protein 6.7 6.0 - 8.0 g/dL LAB CHEMISTRY METHOD 02/16/2025 10:18 AM [facility] Albumin 3.7 3.2 - 5.0 g/dL LAB CHEMISTRY METHOD 02/16/2025 10:18 AM [facility] Total Bilirubin 0.4 0.0 - 1.4 mg/dL LAB CHEMISTRY METHOD 02/16/2025 10:18 AM [facility] Blood Venous blood specimen / Unknown Venipuncture / Unknown 02/16/2025 8:35 AM EDT 02/16/2025 8:35 AM EDT us Selma GAINES LAB BLOOD ORDERABLES Final R esult [facility] [address] [place] [address], * (ABNORMAL) Lipid panel (03/13/2023) LDL/HDL Ratio 6(A) 0 - 4 Triglycerides 127 0 - 150 mg/dL Cholesterol 128 0 - 200 mg/dL HDL 22(A) >=40 mg/dL LDL Cholesterol 81 0 - 100 mg/dL Blood Venous blood specimen / Unknown Historical Provider LAB BLOOD ORDERABLES Tawanna l Result from Last 3 Months or Most Recently Relevant to Health Maintenance Insurance [facility] [place] [address] Care Teams Reducing Machine Operator Relationship Specialty Start Date End Date Lucille Carver MD [address] [place] [address] , [address] Physician Associ D/B/A: [facility] RONALD Knight PCP - General 12/17/18
--- OUTSIDE RECORDS SUMMARY | 2025-03-23 17:45 | XMS_ITS | Encounter Summary ---
Author Organization [facility] Address [address] [place] [address] [place] [address] Phone Care Team Providers Care Patient Safety Sitter Name Role Phone Lucille Marrufo MD Primary Care Provid er Encounter Details Date Type Department Care Team (Late st Contact Info) Description 08/17/2017 Procedure Pass [facility] LW PERIOP DEPT [address] [place] [address] Social History Tobacco Use Types Packs/Day Years [...] on filedocumented in this encounter Care Teams Patient Safety Sitter Relationship Specialty Start Date End Date Lucille Marrufo MD [address] [place] [address] PCP - General Internal Medicine 05/11/17 documented as of this encounter Additional Source Comments The information contained in this document represents components of the legal health record. It is not the complete legal health record.[facility]
--- OUTSIDE RECORDS SUMMARY | 2025-03-23 17:45 | XMS_ITS | Encounter Summary ---
Author Organization [facility] Address [address] [place] [address] Phone Care Team Providers Care Medical Research Assistant Name Role Phone Lucille Marrufo MD Primary Care Provid er Encounter Details Date Type Department Care Team (Late st Contact Info) Description 08/12/2017 Prep for Surgery KELLY [address] [address] Vickie Moralez MD [address] [place] [address] Social History Tobacco Use Types Packs/Day Years [...] on filedocumented in this encounter Care Teams Medical Research Assistant Relationship Specialty Start Date End Date Lucille Marrufo MD [address] [place] [address] PCP - General Internal Medicine 05/11/17 documented as of this encounter Additional Source Comments The information contained in this document represents components of the legal health record. It is not the complete legal health record.[facility]
--- OUTSIDE RECORDS SUMMARY | 2025-03-23 17:45 | XMS_ITS | Clinical Summary ---
Author Organization [facility] Address [address] [place] [address] Phone Care Team Providers Care Mental Health Consultant Name Role Phone Lucille Marrufo MD Primary [...] this topic Medical Devices Implanted Type Area Legal Administrative Secretary Device Identifier Shelf Expiration Date Model / Serial / Lot Tissue Corneal - [id number] Implanted:Qty: 1 on 08/17/2017 by Alicia Hair MD at [address] Left: Eye [employer] 08/27/2017 / [id number] -RCN / [place] [address] [place] [address] [place] [address] [place] [address] [place] [address] [place] [address] [employer] Advance Directives For more information, please contact: [phone] (9AM - 5PM Lucila/[facility], Thursday-Thursday) Documents on File Type Date Recorded Patient Manager Integrated Expl anation Healthcare Proxy 08/17/2017 3:11 PM * Full Code (Presumed) (Latest Code Status on File) Date Activated Date Inactivated Comments 08/17/2017 10:45 AM 08/17/2017 4:46 PM Care Teams Mental Health Consultant Relationship Specialty Start Date End Date Lucille Marrufo MD [address] [place] [address] PCP - General Internal Medicine 05/11/17 Additional Source Comments The information contained in this document represents components of the legal health record. It is not the complete legal health record.[facility]
--- OUTSIDE RECORDS SUMMARY | 2025-03-23 17:45 | XMS_ITS | Encounter Summary ---
Author Organization [facility] Address [address] [place] [address] [place] [address] Phone Care Team Providers Care Amusement Equipment Operator Name Role Phone Lucille Marrufo MD Primary Care Provid er Encounter Details Date Type Department Care Team (Late st Contact Info) Description 08/17/2017 Procedure Pass ZMEE LW PERIOP DEPT [address] [place] [address] Social History Tobacco Use Types Packs/Day Years [...] on filedocumented in this encounter Care Teams Amusement Equipment Operator Relationship Specialty Start Date End Date Lucille Marrufo MD [address] [place] [address] PCP - General Internal Medicine 05/11/17 documented as of this encounter Additional Source Comments The information contained in this document represents components of the legal health record. It is not the complete legal health record.[facility]
== END 2025-03-23 14:47 | disposition home or self-care (01) ==
LOC: HO.HMCH 13:56
PROVIDERS: PCP Internal Medicine; Visit Provider Internal Medicine
DX: Z00.00 Encounter for general adult medical examination without abnormal findings (principal); M89.8X1 Other specified disorders of bone, shoulder; L60.2 Onychogryphosis; F32.0 Major depressive disorder, single episode, mild

== ENCOUNTER 2025-03-23 13:55 | Outpatient (REF) | payer OTHER, SELFPAY ==
--- NOTE | ~2025-03-23 | XR_ITS ---
EXAMINATION: XR SCAPULA LEFT HISTORY: M89.8X1 - Other specified disorders of bone, shoulder COMPARISON: There are no prior studies available for comparison. FINDINGS: Four views of the left scapula are submitted. Osseous mineralization is normal. No fracture is seen. The glenohumeral and acromioclavicular joints are maintained. The soft tissues are unremarkable. XR/XR scapula LT IMPRESSION: Unremarkable examination of the left scapula. Electronically signed by: Carlos Muniz MD 03/23/2025 03:33 PM EDT
== END 2025-03-23 13:56 | disposition home or self-care (01) ==
LOC: HO.XRAY 13:55
PROVIDERS: PCP Internal Medicine; Visit Provider Internal Medicine
DX: Z00.00 Encounter for general adult medical examination without abnormal findings (principal); M89.8X1 Other specified disorders of bone, shoulder; L60.2 Onychogryphosis; F32.0 Major depressive disorder, single episode, mild; Z79.899 Other long term (current) drug therapy
CPT/HCPCS: 73010; 96127; 99212; 99395

== ENCOUNTER → 2025-03-23 15:02 | Outpatient (BNV) | payer OTHER, SELFPAY | PROVIDERS: PCP Internal Medicine; Visit Provider Radiology Diagnostic Radiology | DX: M25.512 Pain in left shoulder (principal) | CPT/HCPCS: 73010 ==

== ENCOUNTER 2025-04-24 13:51 | Outpatient (AMB) | payer OTHER, SELFPAY ==
--- NOTE | 2025-04-24 13:56 | MHC.OFFVIS ---
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 Complaining of pelvic pain with no associated urinary or GI symptoms the vaginal discharge. The patient is interested in STD screening Last Pap/HPV was negative in 02/28 Last diagnostic mammogram in 05/02 was negative PFSH Medical History Morbid obesity due to excess calories BMI 50.0-59.9, adult Obese Keratoconus of both eyes Pneumonia due to COVID-19 virus Asthma PCOS (polycystic ovarian syndrome) Surgical History History of sleeve gastrectomy Hx laparoscopic cholecystectomy History of hysteroscopy History of appendectomy Corneal transplant status Family History Mother Hypertension Father Hypertension Social History Housing: Apartment Alcohol intake: never Patient Tobacco Use Status: Former Tobacco user Tobacco use type: Cigarette Cigarettes Per Day: 3 e-Cigarette/Vaping Use: Never Used Second Hand Smoke Exposure: No service: No Current occupational status: unemployed Gender identity: Female Cognitive needs: No Hearing needs: No Vision needs: Yes Female Reproductive History Menstrual Age of Menarche: 8 Duration of menses: 3-5 days Date of last menstrual period: 03/07/25 control method: none Total pregnancies: 0 Date of last pap smear: 02/18/23 Date of Mammogram: 04/25/24 Review of Systems Const All systems reviewed & are unremarkable except as noted in HPI and below Card Reports as per HPI Resp Reports as per HPI GI Reports as per HPI and Reports no additional complaints Reports as per HPI Physical Exam Vital Signs: Last Vital Signs BP 134/90 H 04/24/25 13:57 BMI result Body Mass Index 32.9 Const General: cooperative, healthy appearing and comfortable Chest Chest palpation & inspection: normal inspection of the chest and normal palpation of entire chest wall Breast/axilla inspection: normal inspection of the breasts and normal inspection of the axillae Breast/axilla palpation: normal palpation of the breasts, normal palpation of the axillae and no axillary lymphadenopathy Resp Effort & Inspection: normal respiratory effort Auscultation: clear to auscultation bilaterally Percussion: percussion normal Cardio Palpation: normal PMI Rate: regular rate Rhythm: regular rhythm Heart sounds: no murmurs and no rubs Peripheral pulses: Peripheral pulses 2+ throughout GI Inspection: Yes normal to inspection Palpation (GI): Soft to palpation, nontender, no guarding, not rigid and No hepatosplenomegaly present Percussion: Yes normal to percussion Auscultation: normal bowel sounds Rectal Exam - Female: deferred General: Yes bladder normal to palpation External Female Exam: No lesion Speculum Exam - Vagina: normal appearance of the vagina, normal palpation, normal vaginal discharge and not erythematous Speculum Exam - Cervix: normal appearance of the cervix and normal palpation Bimanual exam- vagina & uterus: normal bimanual exam, normal palpation, uterine size normal, bladder normal to palpation, consistency normal and normal palpation Bimanual Exam- Adnexa, other: normal adnexae, no masses and no tenderness Assessment & Plan Assessment & Plan (1) Well woman exam: Code(s): Z01.419 - Encounter for gynecological examination (general) (routine) without abnormal findings Category: Medical Plan: Cotesting done. Counseled the patient about the recommended dietary allowance of 1000 mg of Calcium & 600 IU of vitamin D. The patient was instructed to perform monthly self-breast exams and to schedule an annual exam in a year; All questions answered and the patient verbalized understanding. Instructed the patient to schedule annual exam in a year (2) Pelvic pain: Code(s): R10.2 - Pelvic and perineal pain Category: Medical Plan: Urine dip and test done in the office were both negative. GC and chlamydia taken and pelvic ultrasound ordered. Discussed with the patient the differential diagnosis of pelvic pain including but not limited to adnexal, uterine masses, pelvic infections (PID), GI the (Irritable bowel syndrome, diverticulitis, others), musculoskeletal, myofascial pain abdominal wall , adhesions, endometriosis, psychological and others causes. Will check results and treat accordingly. All questions answered, the patient verbalized understanding. Instructed the patient to schedule an ultrasound and a follow-up appointment in 2 weeks. All questions answered, the patient verbalized understanding and agreed with the plan. (3) Screen for STD (sexually transmitted disease): Code(s): Z11.3 - Encounter for screening for infections with a predominantly sexual mode of transmission Category: Medical Plan: STD screening tests done includes: BV panel for trichomonas, GC/CT will send patient for serology std screening for HIV, RPR, Hep b s Ag, HepC Ab. Instructions given the patient to schedule a follow-up appointment for repeat serology screen in 6 months for possible false negatives. Orders: Orders US pelvic and transvaginal Today R10.2 - Pelvic and perineal pain Hepatitis B Surface Antigen Today Z20.2 - Contact with and (suspected) exposure to infections with a predominantly sexual mode of transmission Hepatitis C Antibody Today Z20.2 - Contact with and (suspected) exposure to infections with a predominantly sexual mode of transmission HIV Ab/Ag Today Z20.2 - Contact with and (suspected) exposure to infections with a predominantly sexual mode of transmission Syphilis Screen Today Z20.2 - Contact with and (suspected) exposure to infections with a predominantly sexual mode of transmission Coding Level of Care Code Est Pt Level 3 (34625) Est Pt Prev Care 18-39y(69541) Diagnoses Well woman exam Z01.419 Pelvic pain R10.2 Screen for STD (sexually transmitted disease) Z11.3
[2025-04-24 13:57] VITALS: BP 134/90; BMI 32.9
== END 2025-04-24 15:31 | disposition home or self-care (01) ==
LOC: HO.HWS 13:51
PROVIDERS: PCP Internal Medicine; Visit Provider Obstetrics & Gynecology
DX: Z01.419 Encounter for gynecological examination (general) (routine) without abnormal findings (principal); R10.20 Pelvic and perineal pain unspecified side; Z11.3 Encounter for screening for infections with a predominantly sexual mode of transmission; Z32.02 Encounter for pregnancy test, result negative
CPT/HCPCS: 99213; 99395; 99459

== ENCOUNTER 2025-04-24 13:51 | Outpatient (REF) | payer OTHER, SELFPAY ==
[2025-04-24 16:39] LABS: Bacterial Vaginosis PCR NEGATIVE (Negative); Candida Group PCR DETECTED (Not Detect); Candida glab krusei PCR NOT DETECTED (Not Detect); Trichomonas vaginalis PCR NOT DETECTED (Not Detect)
[2025-04-24 17:11] LABS: CT PCR NOT DETECTED (Not Detect.); NG PCR NOT DETECTED (Not Detect.)
--- OUTSIDE RECORDS SUMMARY | 2025-04-25 04:45 | XMS_ITS | Encounter Summary ---
Author Organization [facility] Address [address] [place] [address] [place] [address] Phone Care Team Providers Care Ordnance Truck Installation Mechanic Name Role Phone Lucille Marrufo MD Primary Care Provid er Encounter Details Date Type Department Care Team (Late st Contact Info) Description 08/17/2017 Procedure Pass ZMEE LW PERIOP DEPT [address] [place] [address] Social History Tobacco Use Types Packs/Day Years [...] on filedocumented in this encounter Care Teams Ordnance Truck Installation Mechanic Relationship Specialty Start Date End Date Lucille Marrufo MD [address] [place] [address] PCP - General Internal Medicine 05/11/17 documented as of this encounter Additional Source Comments The information contained in this document represents components of the legal health record. It is not the complete legal health record.[facility]
--- OUTSIDE RECORDS SUMMARY | 2025-04-25 04:45 | XMS_ITS | Encounter Summary ---
Author Organization [facility] Address [address] [place] [address] [place] [address] Phone Care Team Providers Care Metalworking Specialist Name Role Phone Lucille Marrufo MD Primary Care Provid er Encounter Details Date Type Department Care Team (Late st Contact Info) Description 08/17/2017 Procedure Pass ZMEE LW PERIOP DEPT [address] [place] [address] Social History Tobacco Use Types Packs/Day Years [...] on filedocumented in this encounter Care Teams Metalworking Specialist Relationship Specialty Start Date End Date Lucille Marrufo MD [address] [place] [address] PCP - General Internal Medicine 05/11/17 documented as of this encounter Additional Source Comments The information contained in this document represents components of the legal health record. It is not the complete legal health record.[facility]
--- OUTSIDE RECORDS SUMMARY | 2025-04-25 04:46 | XMS_ITS | Encounter Summary ---
Author Organization [facility] Address [address] [place] [address] Phone Care Team Providers Care Live Hanger Name Role Phone Lucille Marrufo MD Primary Care Provid er Encounter Details Date Type Department Care Team (Late st Contact Info) Description 08/12/2017 Prep for Surgery KELLY [address] [address] Vickie Moralez MD [address] [place] [address] Social History Tobacco Use Types Packs/Day Years [...] on filedocumented in this encounter Care Teams Live Hanger Relationship Specialty Start Date End Date Lucille Marrufo MD [address] [place] [address] PCP - General Internal Medicine 05/11/17 documented as of this encounter Additional Source Comments The information contained in this document represents components of the legal health record. It is not the complete legal health record.[facility]
--- OUTSIDE RECORDS SUMMARY | 2025-04-25 04:46 | XMS_ITS | Clinical Summary ---
Author Organization [facility] Address [address] [place] [address] Phone Care Team Providers Care Meter/Relay Technician Name Role Phone Lucille Marrufo MD Primary [...] patient's age to complete this topic IPV VACCINES Aged Out No longer eligi ble based on patient's age to complete this topic MENINGOCOCCAL VACCINES (ACWY) Aged Out No longer eligible based on patient's age to complete this topic MENINGOCOCCAL VACCINES (B) Aged Out N o longer eligible based on patient's age to complete this topic Medical Devices Implanted Type Area System Dispatcher Device Identifier Shelf Expiration Date Model / Serial / Lot Tissue Corneal - [id number] Implanted:Qty: 1 on 08/17/2017 by Alicia Hair MD at [address] Left: Eye [employer] 08/27/2017 / [id number] -[id number] / Insurance [place] [address] [place] [address] [place] [address] [place] [address] ACO [employer] [place] [address] [place] [address] ACO Member Subscriber Plan / Payer (Ef fective 2017-Present) Name:Lula Matos Relation to Subscriber:Self Name:Lula Matos Payer ID:[id number] Group ID:[id number] Type:Medicaid Address: [place] [id number] [place] [address] [place] [address] [address] ALLIANCE ACO Advance Directives For more information, please contact: [phone] (9AM - 5PM Lucila/[facility], Thursday-Thursday) Documents on File Type Date Recorded Patient Corporate Legal Assistant Expl anation Healthcare Proxy 08/17/2017 3:11 PM * Full Code (Presumed) (Latest Code Status on File) Date Activated Date Inactivated Comments 08/17/2017 10:45 AM 08/17/2017 4:46 PM Care Teams Meter/Relay Technician Relationship Specialty Start Date End Date Lucille Marrufo MD [address] [place] [address] PCP - General Internal Medicine 05/11/17 Additional Source Comments The information contained in this document represents components of the legal health record. It is not the complete legal health record.[facility]
[2025-04-25 08:16] LABS: HBsAGNum1 0.40 S/CO (0.00-0.99); HIV Num 1 0.06 S/CO (0.00-0.99); Hepatitis B Surface Antigen Negative (Negative); ~HepC Num1 0.13 S/CO (0.00-0.79); ~Hepatitis C Antibody Nonreactive (Nonreactive)
[2025-04-25 08:33] LABS: Syphilis Screen Nonreactive (Nonreactive)
== END 2025-04-24 13:52 | disposition home or self-care (01) ==
LOC: HO.LAB 13:51
PROVIDERS: PCP Internal Medicine; Visit Provider Obstetrics & Gynecology
DX: Z01.419 Encounter for gynecological examination (general) (routine) without abnormal findings (principal); R10.20 Pelvic and perineal pain unspecified side; Z20.2 Contact with and (suspected) exposure to infections with a predominantly sexual mode of transmission; Z11.59 Encounter for screening for other viral diseases; Z11.4 Encounter for screening for human immunodeficiency virus [HIV]; Z11.3 Encounter for screening for infections with a predominantly sexual mode of transmission
CPT/HCPCS: 36415; 81025; 81515; 86780; 86803; 87340; 87389; 87491; 87591; 99212; 99395

== ENCOUNTER 2025-05-31 10:41 | Outpatient (REF) | payer OTHER, SELFPAY ==
--- NOTE | ~2025-05-31 | MM_ITS ---
EXAMINATION: MM SCREENING DIGITAL BREAST TOMOSYNTHESIS, BILATERAL CLINICAL INFORMATION: Screening. Asymptomatic. COMPARISON: Mammography: Comparison is made with available priors TECHNIQUE: Digital breast mammography with tomosynthesis is performed in both the craniocaudal and mediolateral oblique views along with computer-aided detection (CAD). FINDINGS: There are scattered areas of fibroglandular density. There are no significant masses, abnormal calcifications, or other abnormalities. MM/MM tomosynthesis screening BI IMPRESSION: No mammographic evidence of malignancy. ASSESSMENT: BI-RADS Category 1: Negative RECOMMENDATION: Routine annual mammography screening. 1 year F/U This examination should not preclude the clinical evaluation of a suspicious palpable abnormality. This patient's information was entered into a reminder system with a target due date for their next mammogram. Electronically signed by: Monique Stallings DO 05/31/2025 02:59 PM AV
--- OUTSIDE RECORDS SUMMARY | 2025-05-31 10:45 | XMS_ITS | Encounter Summary ---
Author Organization [facility] Address [address] [place] [address] Phone Care Team Providers Care Remote Operations Producer Name Role Phone Lucille Marrufo MD Primary Care Provid er Encounter Details Date Type Department Care Team (Late st Contact Info) Description 08/12/2017 Prep for Surgery KELLY [address] [address] Vickie Moralez MD [address] [place] [address] Social History Tobacco Use Types Packs/Day Years [...] on filedocumented in this encounter Care Teams Remote Operations Producer Relationship Specialty Start Date End Date Lucille Marrufo MD [address] [place] [address] PCP - General Internal Medicine 05/11/17 documented as of this encounter Additional Source Comments The information contained in this document represents components of the legal health record. It is not the complete legal health record.[facility]
--- OUTSIDE RECORDS SUMMARY | 2025-05-31 10:45 | XMS_ITS | Clinical Summary ---
Author Organization [facility] Address [address] [place] [address] Phone Care Team Providers Care Feller Hand Name Role Phone Lucille Marrufo MD Primary [...] this topic Medical Devices Implanted Type Area Team Driver Device Identifier Shelf Expiration Date Model / Serial / Lot Tissue Corneal - [id number] Implanted:Qty: 1 on 08/17/2017 by Alicia Hair MD at [address] Left: Eye [employer] 08/27/2017 / [id number] -RCN / [place] [address] [place] [address] [place] [address] [place] [address] [place] [place] [address] ACO Advance Directives For more information, please contact: [phone] (9AM - 5PM Lucila/[facility], Thursday-Thursday) Documents on File Type Date Recorded Patient Veneer Drier Expl anation Healthcare Proxy 08/17/2017 3:11 PM * Full Code (Presumed) (Latest Code Status on File) Date Activated Date Inactivated Comments 08/17/2017 10:45 AM 08/17/2017 4:46 PM Care Teams Feller Hand Relationship Specialty Start Date End Date Lucille Marrufo MD [address] [place] [address] PCP - General Internal Medicine 05/11/17 Additional Source Comments The information contained in this document represents components of the legal health record. It is not the complete legal health record.[facility]
--- OUTSIDE RECORDS SUMMARY | 2025-05-31 10:45 | XMS_ITS | Encounter Summary ---
Author Organization [facility] Address [address] [place] [address] [place] [address] Phone Care Team Providers Care Trim Carpenter Name Role Phone Lucille Marrufo MD Primary Care Provid er Encounter Details Date Type Department Care Team (Late st Contact Info) Description 08/17/2017 Procedure Pass ZMEE LW PERIOP DEPT [address] [place] [address] Social History Tobacco Use Types Packs/Day Years [...] on filedocumented in this encounter Care Teams Trim Carpenter Relationship Specialty Start Date End Date Lucille Marrufo MD [address] [place] [address] PCP - General Internal Medicine 05/11/17 documented as of this encounter Additional Source Comments The information contained in this document represents components of the legal health record. It is not the complete legal health record.[facility]
--- OUTSIDE RECORDS SUMMARY | 2025-05-31 10:45 | XMS_ITS | Encounter Summary ---
Author Organization [facility] Address [address] [place] [address] [place] [address] Phone Care Team Providers Care Pulmonary Function Technologist Name Role Phone Lucille Marrufo MD Primary Care Provid er Encounter Details Date Type Department Care Team (Late st Contact Info) Description 08/17/2017 Procedure Pass ZMEE LW PERIOP DEPT [address] [place] [address] Social History Tobacco Use Types Packs/Day Years [...] on filedocumented in this encounter Care Teams Pulmonary Function Technologist Relationship Specialty Start Date End Date Lucille Marrufo MD [address] [place] [address] PCP - General Internal Medicine 05/11/17 documented as of this encounter Additional Source Comments The information contained in this document represents components of the legal health record. It is not the complete legal health record.[facility]
--- OUTSIDE RECORDS SUMMARY | 2025-05-31 10:45 | XMS_ITS | Clinical Summary ---
Author Organization [facility] Address [address] [place] [address] Phone Care Team Providers Care Data Center Manager Name Role Phone Lucille Carver MD Primary Care Provider [phone] Allergies Active Allergy Reactions Criticality Noted Date [...] of 33.0 to 33.9 in adult 04/20/2023 Social History Tobacco Use [...] Care Team (Late st Contact Info) Description 06/13/2025 1:30 PM EST Consult Orthopedic Surgery - [place] [address] [facility] [address] [place] [phone] Christopher Bhatti DPM [address] [facility] [address] [place] [address] 08/16/2025 1:00 PM EDT Office Visit Bariatric Surgery - [place] [address] [facility] [address] [place] [phone] Selma Eason PA [address] [place] [address] [phone] Health Maintenance Due Date Last Done Comments [...] mg/dL Blood Venous blood specimen / Unknown [facility] Provider LAB BLOOD ORDERABLES Tawanna l Result from Last 3 Months or Most Recently Relevant to Health Maintenance Insurance [facility] Care Teams Data Center Manager Relationship Specialty Start Date End Date Lucille Carver MD [address] [place] [address] , [address] [facility] D/B/A: Eugene Ennisatigrady In Internal Medicine RONALD Knight PCP - General 12/17/18
== END 2025-05-31 10:42 | disposition home or self-care (01) ==
LOC: HO.MAMMO 10:41
PROVIDERS: PCP Internal Medicine; Visit Provider Internal Medicine
DX: Z12.31 Encounter for screening mammogram for malignant neoplasm of breast (principal)
CPT/HCPCS: 77063; 77067

== ENCOUNTER → 2025-05-31 11:00 | Outpatient (BNV) | payer OTHER, SELFPAY | PROVIDERS: PCP Internal Medicine; Visit Provider Internal Medicine | DX: Z12.31 Encounter for screening mammogram for malignant neoplasm of breast (principal) | CPT/HCPCS: 77063; 77067 ==